=== PATIENT | male | born 1935 | race Caucasian/White ===

== ENCOUNTER → 2016-07-27 | Outpatient (CLI) | payer OTHER ==
[~2016-07-27] MED LIST: ACET-1311 PO; ASCO500T3 PO; ASPCH81X PO; CALC-354 PO; CARB25TA12 PO; CHOL1000 PO; CYCL0.052 OPB; FRS/40 PO; FURO-85 PO; IMDSR30 PO; ISOS30TA35 PO; METO25TA3 PO; MULT-845 PO; MULTTAB PO; NTRGSL/4 UT; PANT40TA PO; POLY335019 PO; POLY335040 PO; POTA1TAB97 PO; POTA20TA13 PO; RIVA4.6D TD; RIVA6CAP4 PO; RSTOPS OP; SERT50TA PO; SIMV20TA2 PO; TRAM-10 PO; ZLF/100 PO
== END | disposition home or self-care (01) ==
LOC: C.LAB 14:29
PROVIDERS: ATTEND Nurse Practitioner Family
DX: N39.0 Urinary tract infection, site not specified (principal)

== ENCOUNTER → 2016-09-24 | Outpatient (CLI) | payer OTHER ==
[~2016-09-24] MED LIST changes: -ACET-1311 PO; -FURO-85 PO; -ISOS30TA35 PO; -MULTTAB PO; -POLY335040 PO; -POTA20TA13 PO; +REGADENOSON 0.4 MG/5 ML SYR ONE; -RIVA4.6D TD; -RSTOPS OP
--- NOTE | 2016-09-25 09:42 | MYOCARDIAL PERFUSION SCAN ---
REQUESTING PHYSICIAN: Dr. Dong Granger. PRIMARY CARE PHYSICIAN: Dr. Dino Brandon. STUDY TITLE: One-day nuclear medicine technetium-99m Cardiolite myocardial perfusion scan. INDICATION: Chest pain and presyncope. EKG: Baseline EKG showed sinus bradycardia at a rate of 50 with first degree AV block, right bundle branch block and questionable old inferior infarct. Nonspecific ST changes. STRESS EKG: With Lexiscan, heart rate franca from 50 to 66, blood pressure changed from 137/69 to 113/57. There were no significant ST changes with Lexiscan. No Lexiscan induced arrhythmias. TECHNIQUE: For the stress portion of the study, 33.1 mCi of technetium-99m Cardiolite IV was injected at 11:12 a.m. on 09/24/2016. Thirty minutes following the injection, imaging of the heart was performed in multiple projections. For the rest portion of the study, 10.7 mCi of technetium-99m Cardiolite was injected IV at 09:35 a.m. One hour following injection, imaging of the heart was performed in the same projections. FINDINGS: The rotating raw images were reviewed in detail. There was mild vertical motion in the stress more so than on the rest images. There was no significant gut uptake impacting the inferior imaging borders of the heart. There was no significant pathologic extracardiac uptake. The short axis, vertical long axis, and horizontal long axis images were reviewed in detail. There was a small mild to moderate, partially reversible inferior perfusion defect. Summed difference score was calculated less than 3. LV size was normal with an end-diastolic volume recorded at 123 mL. EF was low normal with an EF of 46%. There was inferior hypokinesis. IMPRESSIONS: 1. Small inferior wall infarct with mild periinfarct ischemia, SDS less than 3. 2. Normal left ventricle size with mild left ventricular dysfunction. Ejection fraction 46%. There was inferior hypokinesis. 3. Nondiagnostic stress EKG with no Lexiscan induced arrhythmias or ST changes. 4. 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 MTDD
== END | disposition home or self-care (01) ==
LOC: C.NUCL 08:46
PROVIDERS: ATTEND Internal Medicine Cardiovascular Disease
DX: I25.10 Atherosclerotic heart disease of native coronary artery without angina pectoris (principal); R07.89 Other chest pain

== ENCOUNTER → 2016-09-30 | Day surgery (SDC) | payer OTHER ==
[2016-09-08 13:36] VITALS: Ht 180.3 cm; Wt 97.7 kg
[~2016-09-30] VITALS: Ht 180.3 cm; Wt 97.7 kg
[~2016-09-30] MED LIST changes: +LIDOCAINE HCL 2% 2 ML VIAL (20MG/ML) ONE; +PROPOFOL IV EMULSION 10 MG/ML 20 ML VIAL IV ONE; -REGADENOSON 0.4 MG/5 ML SYR ONE; +SODIUM CHLORIDE 0.9% 500ML 500 ML IV ONE
[2016-09-30 10:21] VITALS: TEMP 36.7
--- NOTE | 2016-09-30 10:52 | Endo History and Physical ---
History & Physical Date of Service: September 30, 2016. Chief Complaint: history of polyps Referring Physician: Dr. Dino Brandon and Dr. Granger History of Present Illness 80 yo CM who presents for colonoscopy secondary to history of colon polyps. 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) Hx Thoracic Surgery: No Hx Orthopedic: Yes (RT ANKLE SX, LUMBAR SURGERIES (DISCECTOMY AND FUSIONS) X 4 , RT RCR) Hx Urinary Tract Surgery: Yes (TURP, BLADDER CLIP REMOVAL) Family History Esophogeal CA Social History Smoking Status: Never Smoker Hx Substance Use: No Hx Alcohol Use: No Allergies Coded Allergies: Gabapentin (Verified Adverse Reaction, Intermediate, double vision, ) Current Medications Reported Home Medications Medications Dose Route/Sig Max Daily Dose Days Date Category Dose Instructions Zoloft (Sertraline HCl) 50 Mg Tab 75 Mg PO HS 09/08/16 Reported Rivastigmine Tartrate 6 Mg Cap 1 Cap PO QAM 09/08/16 Reported Centrum Silver Adult 50+ (Multiple Vitamins W/ Minerals) 1 Tab Tab 1 Tab PO QAM 09/08/16 Reported Caltrate 600+D (Calcium Carbonate-Cholecalcife) 1 Tab Tab 1 Tab PO QAM 09/08/16 Reported Restasis (Cyclosporine (Ophth)) 0.05 % Emu 1 Drop OPB QAM 09/08/16 Reported Lasix (Furosemide) 40 Mg Tab 40 Mg PO Q2D 09/08/16 Reported K-Tab (Potassium Chloride) 20 Meq Tab 1 Tab PO Q2D 09/08/16 Reported Miralax (Polyethylene Glycol 3350) 1 Pow Pow 17 Gm PO DAILY PRN 09/08/16 Reported Aspirin Chewable (Aspirin) 81 Mg Chew 81 Mg PO QAM 09/08/16 Reported Vitamin D3 (Cholecalciferol) 1,000 Unit Tab 1 Tab PO QAM 90 09/08/16 Reported Sinemet 25MG/100MG (Carbidopa/Levodopa) Tab 0.5 Tab PO BID 11/23/15 Reported Ultram (Tramadol HCl) 50 Mg Tab 25 Mg PO Q4 PRN 30 08/28/15 Reported Vitamin C (Ascorbic Acid) 500 Mg Tab 500 Mg PO QAM 06/18/13 Reported Nitrostat (Nitroglycerin) 0.4 Mg Tab 0.4 Mg UT UD PRN 04/15/12 Reported Toprol-Xl (Metoprolol Succinate) 25 Mg Tabcr 12.5 Mg PO QAM 08/30/11 Reported Protonix (Pantoprazole Sodium) 40 Mg Tab 40 Mg PO QAM 06/08/11 Reported Zocor (Simvastatin) 20 Mg Tab 20 Mg PO QPM 06/08/11 Reported with evening meal Vital Signs Weight (Kilograms): 97.73 Height (Feet): 5 Height (Inches): 11 Date Time Temp Pulse Resp B/P Pulse Ox O2 Delivery O2 Flow Rate FiO2 09/30/16 10:21 36.7 73 20 128/72 95 Room Air Physical Exam General Appearance: WD/WN, no apparent distress Respiratory/Chest: Auscultation: breath sounds normal Cardiovascular: Heart Auscultation: RRR Abdomen: Bowel Sounds: normal Inspection & Palpation: soft, non-distended, no tenderness, guarding & rebound Assessment and Plan Assessment: 80 yo CM who presents for colonoscopy secondary to history of colon polyps. Plan: Proceed with colonoscopy.
--- NOTE | 2016-09-30 11:55 | GI REPORT ---
Procedure Date: 09/30/2016 11:04 AM Procedure: Colonoscopy Indications: High risk colon cancer surveillance: Personal history of colonic polyps Medicines: Monitored Anesthesia Care Complications: No immediate complications. Estimated Blood Loss: Estimated blood loss: none. Procedure: Pre-Anesthesia Assessment: - Prior to the procedure, a History and Physical was performed, and patient medications and allergies were reviewed. The patient's tolerance of previous anesthesia was also reviewed. The risks and benefits of the procedure and the sedation options and risks were discussed with the patient. All questions were answered, and informed consent was obtained. Prior Anticoagulants: The patient has taken aspirin, last dose was 1 day prior to procedure. ASA Grade Assessment: III - A patient with severe systemic disease. After reviewing the risks and benefits, the patient was deemed in satisfactory condition to undergo the procedure. After I obtained informed consent, the scope was passed under direct vision. Throughout the procedure, the patient's blood pressure, pulse, and oxygen saturations were monitored continuously. The On-site loaner was introduced through the anus and advanced to the terminal ileum. The colonoscopy was performed without difficulty. The patient tolerated the procedure well. The quality of the bowel preparation was good. The terminal ileum, ileocecal valve, appendiceal orifice, and rectum were photographed. Findings: Three sessile polyps were found in the transverse colon, in the ascending colon and in the cecum. The polyps were 5 to 15 mm in size. These polyps were removed with a hot snare. Resection and retrieval were complete. To prevent bleeding after the polypectomy, six hemostatic clips were successfully placed (MR conditional). There was no bleeding at the end of the procedure. Multiple small-mouthed diverticula were found in the sigmoid colon. Non-bleeding internal hemorrhoids were found during retroflexion. The hemorrhoids were small. Impression: - Three 5 to 15 mm polyps in the transverse colon, in the ascending colon and in the cecum, removed with a hot snare. Resected and retrieved. Clips (MR conditional) were placed. - Diverticulosis in the sigmoid colon. - Non-bleeding internal hemorrhoids. Recommendation: - Resume previous diet. - Continue present medications. - Await pathology results. - No repeat colonoscopy due to age. - Return to primary care physician as previously scheduled. Barrett Pak DO 09/30/2016 11:54:12 AM This report has been signed electronically. Note Initiated On: 09/30/2016 11:04 AM I attest to the content of the Intraoperative Record and orders documented therein, exceptions below
--- NOTE | 2016-09-30 11:56 | Discharge Instructions ---
Endoscopy Patient Instructions Date / Procedure(s) Performed September 30, 2016. Colonoscopy Allergy Information Coded Allergies: Gabapentin (Verified Adverse Reaction, Intermediate, double vision, ) Discharge Date / Findings September 30, 2016. Colon polyps Diverticulosis Internal hemorrhoids Medication Instructions Stopped Medication(s): took ASA yesterday OK to resume all medications today as prescribed Reported Home Medications Medications Dose Route/Sig Max Daily Dose Days Date Category Dose Instructions Zoloft (Sertraline HCl) 50 Mg Tab 75 Mg PO HS 09/08/16 Reported Rivastigmine Tartrate 6 Mg Cap 1 Cap PO QAM 09/08/16 Reported Centrum Silver Adult 50+ (Multiple Vitamins W/ Minerals) 1 Tab Tab 1 Tab PO QAM 09/08/16 Reported Caltrate 600+D (Calcium Carbonate-Cholecalcife) 1 Tab Tab 1 Tab PO QAM 09/08/16 Reported Restasis (Cyclosporine (Ophth)) 0.05 % Emu 1 Drop OPB QAM 09/08/16 Reported Lasix (Furosemide) 40 Mg Tab 40 Mg PO Q2D 09/08/16 Reported K-Tab (Potassium Chloride) 20 Meq Tab 1 Tab PO Q2D 09/08/16 Reported Miralax (Polyethylene Glycol 3350) 1 Pow Pow 17 Gm PO DAILY PRN 09/08/16 Reported Aspirin Chewable (Aspirin) 81 Mg Chew 81 Mg PO QAM 09/08/16 Reported Vitamin D3 (Cholecalciferol) 1,000 Unit Tab 1 Tab PO QAM 90 09/08/16 Reported Sinemet 25MG/100MG (Carbidopa/Levodopa) Tab 0.5 Tab PO BID 11/23/15 Reported Ultram (Tramadol HCl) 50 Mg Tab 25 Mg PO Q4 PRN 30 08/28/15 Reported Vitamin C (Ascorbic Acid) 500 Mg Tab 500 Mg PO QAM 06/18/13 Reported Nitrostat (Nitroglycerin) 0.4 Mg Tab 0.4 Mg UT UD PRN 04/15/12 Reported Toprol-Xl (Metoprolol Succinate) 25 Mg Tabcr 12.5 Mg PO QAM 08/30/11 Reported Protonix (Pantoprazole Sodium) 40 Mg Tab 40 Mg PO QAM 06/08/11 Reported Zocor (Simvastatin) 20 Mg Tab 20 Mg PO QPM 06/08/11 Reported with evening meal Provider Instructions Activity Restrictions - No exercising or heavy lifting for 24 hours. - Do not drink alcohol the day of the procedure. - Do not drive a car or operate machinery until the day after the procedure. - Do not make any important decisions or sign important papers in 24 hours after the procedure. Following Day: - Return to full activity which may include returning to work/school. Diet Start your diet with liquids and light foods (jello, soup, juice, toast). Then eat your usual diet if not nauseated. Treatment For Common After Affects For mild abdominal pain, bloating, or excessive gas: - Rest - Eat lightly - Lie on right side Follow-Up Information Follow-up with Dr. Dino Brandon and Dr. Granger as scheduled Anesthesia Information What You Should Know You have had a procedure that required some medicine to reduce anxiety and discomfort. This treatment is called moderate sedation. After receiving the treatment, you may be sleepy, but you will be able to breathe on your own. The effects of the treatment may last for several hours. Follow these instructions along with Activity/Diet recommendations noted above: * Do NOT do anything where dizziness or clumsiness would be dangerous. * Rest quietly at home today, then you can be up and about tomorrow. * Have a responsible person stay with you the rest of today. * You may have had an I.V. today. If so, you may take the dressing off later today. Recommendations Call your doctor if: * Trouble breathing * Continuous vomiting for more than 24 hours * Temperature above 101 degrees * Severe abdominal pain or bloating * Pain not relieved by pain medicine ordered * There is increased drainage or redness from any incision * A large amount of rectal bleeding greater than 2-3 tablespoons. (If you had a polyp/s removed or have hemorrhoids, a small amount of blood - from the rectum is to be expected.) * You have any unanswered questions or concerns. IN THE EVENT OF A SERIOUS EMERGENCY, GO TO THE NEAREST EMERGENCY ROOM Your discharge instructions were prepared by provider Barrett Pak. Patient Instructions Signature Page [place] Patient (or Guardian) Signature/Date: I have read and understand the instructions given to me by my caregivers. Caregiver/RN/Doctor Signature/Date: The above-named patient and/or guardian has received patient instructions on this date. + Original Patient Signature Page (only) stays with chart. Please make copy for patient.
[2016-09-30 12:22] VITALS: BP 139/72; PULSE 66; O2SAT 94
--- NOTE | 2016-09-30 12:28 | Anesthesiology Progress Note ---
Anesthesia Post Op Note Date & Time September 30, 2016 at 12:27 Vital Signs Pain Intensity: 0 Vital Signs Past 12 Hours Date Time Temp Pulse Resp B/P Pulse Ox O2 Delivery O2 Flow Rate FiO2 09/30/16 12:22 66 16 139/72 94 Room Air 09/30/16 12:07 52 16 135/66 93 Room Air 09/30/16 11:52 57 16 109/55 93 Room Air 09/30/16 10:21 36.7 73 20 128/72 95 Room Air Notes Mental Status: alert / awake / arousable, participated in evaluation Pt Amnestic to Procedure: Yes Nausea / Vomiting: adequately controlled Pain: adequately controlled Airway Patency, RR, SpO2: stable & adequate BP & HR: stable & adequate Hydration State: stable & adequate Anesthetic Complications: no major complications apparent
== END | disposition home or self-care (01) ==
LOC: C.GI 09:52
PROVIDERS: ATTEND Internal Medicine
DX: Z12.11 Encounter for screening for malignant neoplasm of colon (principal); Z86.010 Personal history of colon polyps; D12.0 Benign neoplasm of cecum; K57.30 Diverticulosis of large intestine without perforation or abscess without bleeding; K64.8 Other hemorrhoids; I10 Essential (primary) hypertension; I50.9 Heart failure, unspecified; G20 Parkinson's disease; E78.00 Pure hypercholesterolemia, unspecified; K21.9 Gastro-esophageal reflux disease without esophagitis; F32.9 Major depressive disorder, single episode, unspecified; I25.2 Old myocardial infarction; Z85.46 Personal history of malignant neoplasm of prostate; Z86.73 Personal history of transient ischemic attack (TIA), and cerebral infarction without residual deficits; Z90.89 Acquired absence of other organs; Z98.890 Other specified postprocedural states; Z80.0 Family history of malignant neoplasm of digestive organs

== ENCOUNTER → 2016-10-14 | Day surgery (SDC) | payer OTHER ==
[2016-09-08 13:30] VITALS: Ht 180.3 cm; Wt 97.7 kg
[~2016-10-14] VITALS: Ht 180.3 cm; Wt 97.7 kg
[~2016-10-14] MED LIST changes: +BUPIVACAINE 0.25% 2.5MG/ML PF 10 ML VIAL INFIL ONE; +IOPAMIDOL INJ 61% 15 ML VIAL ONE; +LIDOCAINE HCL 1% MPF 5 ML VIAL ONE; -LIDOCAINE HCL 2% 2 ML VIAL (20MG/ML) ONE; -PROPOFOL IV EMULSION 10 MG/ML 20 ML VIAL IV ONE; -SODIUM CHLORIDE 0.9% 500ML 500 ML IV ONE
--- NOTE | 2016-10-14 09:53 | History & Physical Bridge - [place] ---
H&P Re-Evaluation Bridge Note: I have examined the patient, reviewed the History & Physical and in the interval since the performance of the History & Physical I have noted the following changes of clinical significance: No changes noted
[2016-10-14 10:20] VITALS: TEMP 37
--- NOTE | 2016-10-14 10:23 | Discharge Instructions ---
Discharge Instructions Date of Service October 14, 2016. Visit Reason for Visit: Sacroiliitis Discharge Discharge Diagnosis / Problem: low back pain Discharge Goals Goal(s): Decrease discomfort, Improve function Activity Recommendations Activity Limitations: resume your previous activity Anesthesia . Post Anesthesia Instructions: If you have had General Anesthesia or IV Sedation: * Do not drive today. * Resume driving when surgeon permits. * Do not make important decisions or sign legal documents today. * Call surgeon for: 1. Temperature elevations greater than 101 degrees F. 2. Uncontrollable pain. 3. Excessive bleeding. 4. Persistent nausea and vomiting. 5. Medication intolerance (nausea, vomiting or rash). * For nausea and vomiting use only clear liquids such as: tea, soda, bouillon until nausea subsides, then gradually increase diet as tolerated. * If you have any concerns or questions, call your surgeon's office. If physician is unavailable and it is an emergency, call 911 or go to the nearest emergency room. . Diet Recommendations Recommended Home Diet: resume previous diet Procedures Procedures Performed: Bilateral Sacroiliac Joint Injection Pending Studies Studies pending at discharge: no Medical Emergencies . Who to Call and When: Medical Emergencies: If at any time you feel your situation is an emergency, please call 911 immediately. . Non-Emergent Contact Non-Emergency issues call your: Specialist . . "Provider Documentation" section prepared by Jed Wallace. .
[2016-10-14 10:39] VITALS: BP 135/72; PULSE 60; O2SAT 95
--- NOTE | 2016-10-14 11:40 | OPERATIVE REPORT ---
DATE OF OPERATION: 10/14/2016 PREOPERATIVE DIAGNOSES: Bilateral sacroiliitis, history of a lumbar fusion, chronic low back pain. POSTOPERATIVE DIAGNOSIS: Same. PROCEDURE: Bilateral sacroiliac joint injections under fluoroscopic guidance. INDICATIONS: The patient is an 80-year-old white male who presented in the office with intractable back pain. He was really localizing pain to the sacroiliac joints. He presents today for injections into these joints to try to reduce or relieve some of the pain he has been experiencing that has not responded to conservative measures and is affecting his functional status. PHYSICAL EXAMINATION: Pleasant male who has difficulty moving from a sit to stand position. He is point tender to palpation of his SI joints bilaterally, right and left. He has normal motor strength. No focal weakness. Negative seated straight leg raises. CONSENT: Verbal and written consent was obtained from the patient. Risks and benefits were reviewed. Risks include but are not limited to abscess and allergic reaction. The patient wishes to proceed. PROCEDURE: The patient was taken back to the special procedures room of the [facility] where he was maintained in a prone position. Backside was cleansed with Betadine x3 and a dry sterile dressing was applied. Fluoroscope was used to identify the left sacroiliac joint and the overlying skin was anesthetized with 2.5 mL of lidocaine 1% with a 25 gauge 1.5-inch needle. A 25 gauge 3.5 inch spinal needle was then directed into the joint under fluoroscopic guidance. Isovue 300 contrast 0.25 of a mL was injected in which demonstrated intraarticular uptake. He then underwent injection after negative aspiration of 40 mg of Depo-Medrol and 1.5 mL of bupivacaine 0.25%. Injection was well tolerated. The right SI joint then was fluoroscopically identified. The overlying skin was anesthetized with 2.5 mL of lidocaine 1% with a 25 gauge 1.5 inch needle. A 25-gauge 3 inch needle was then directed into the joint. Isovue 300 contrast 0.25 mL was injected in which demonstrated intra-articular placement. He then underwent injection after negative aspiration of 40 mg of Depo-Medrol and 1.5 mL of bupivacaine 0.25%. Injection was well tolerated. DISPOSITION: 1. The patient was taken out into the discharge recovery area where he will be discharged home once discharge criteria have been met. 2. Follow up in the [facility] office in 2-4 weeks. I attest to the content of the Intraoperative Record and any orders documented therein. Any exceptio ns are noted below.
== END | disposition home or self-care (01) ==
LOC: X.SURG 09:10
PROVIDERS: ATTEND Physical Medicine & Rehabilitation
DX: M46.1 Sacroiliitis, not elsewhere classified (principal); G89.29 Other chronic pain; M54.5 Low back pain

== ENCOUNTER 2016-11-11 17:11 | Emergency (ER) | payer OTHER ==
[~2016-11-11] VITALS: Ht 180.3 cm; Wt 99.1 kg
[~2016-11-11 17:11] MED LIST changes: -BUPIVACAINE 0.25% 2.5MG/ML PF 10 ML VIAL INFIL ONE; -IOPAMIDOL INJ 61% 15 ML VIAL ONE; -LIDOCAINE HCL 1% MPF 5 ML VIAL ONE; -ZLF/100 PO
[2016-11-11 17:12] VITALS: TEMP 36.3; Ht 180.3 cm; Wt 99.1 kg
[2016-11-11] MEDS ORDERED: SODIUM CHLORIDE 0.9% 1000ML 500 ML IV STA (17:26)
[2016-11-11] MEDS ORDERED: SODIUM CHLORIDE 0.9% 1000ML 1,000 ML IV STA (17:26)
[2016-11-11 17:52] LABS: BASO % 0.4 %; BASO ABS # 0.04 K/uL (0-0.2); COMPLETE YES; EOS % 5.4 %; HEMATOCRIT 45.8 % (42-52); IG% 0.2 %; LYMPH % 28.4 %; LYMPH ABS # 2.61 K/uL (1.2-3.4); MEAN CELL VOLUME 87.6 fL (80-100); MEAN CORPUSCULAR HEMOGLOBIN 29.6 pg (25-34); MEAN CORPUSCULAR HGB CONC 33.8 g/dl (32-36); MEAN PLATELET VOLUME 9.2 fL (7.4-10.4); MONO % 8.7 %; NEUT % 56.9 %; PLATELET COUNT 188 K/uL (130-400); RED BLOOD COUNT 5.23 M/uL (4.7-6.1); WHITE BLOOD COUNT 9.19 K/uL (4.8-10.8)
[2016-11-11 18:08] LABS: BUN/CREATININE RATIO 9.9 (10-20); CALCIUM 9.2 mg/dl (8.5-10.1); CREATININE 1.7 mg/dl (0.60-1.40); POTASSIUM 3.7 mmol/L (3.5-5.1)
--- NOTE | 2016-11-11 18:22 | DIAGNOSTIC IMAGING REPORT ---
ABDOMEN AND PELVIS CT WITHOUT CONTRAST CT DOSE: 727.89 mGy.cm HISTORY: Diarrhea, left abdominal pain TECHNIQUE: Multiaxial CT images of the abdomen and pelvis were performed without contrast. COMPARISON STUDY: Abdomen and pelvis CT 01/01/2015. FINDINGS: Groundglass densities within the lower lobes may be due to mild dependent change. There is a 1.5 cm nodule within the base of the left lower lobe. No pneumoperitoneum. No pneumatosis. Posterior decompression and fusion within the lumbar sacral spine. The heart remains mildly enlarged. Mild motion artifact. The unenhanced liver, gallbladder, spleen, adrenal glands, and pancreas are unremarkable. The kidneys are mildly atrophic. There are few small bilateral peripelvic renal cysts. There is also a 1.2 cm hypodensity within the left kidney. This also favors a cyst. No hydronephrosis. The bladder is not well-distended but appears unremarkable. The prostate gland is surgically absent. Suspect a punctate stone within the left kidney. No retroperitoneal lymphadenopathy. Suboptimal evaluation for bowel pathology due to the lack of intravenous and oral contrast. However, there is no definite bowel wall thickening or obstruction. Colonic diverticulosis. Normal appendix. Surgical clips within the right side of the colon. IMPRESSION: 1. No definite bowel wall thickening or obstruction. 2. Colonic diverticulosis. 3. Normal appendix. 4. Suspect a punctate stone within the left kidney. No ureteral stones. No hydronephrosis. 5. A 1.5 cm nodule within the base of the left lower lobe. This is suspicious for a neoplasm. Pulmonology consultation and/or short term chest CT/PET CT follow-up can be performed. Electronically signed by: Tip Kunz M.D. 11/11/2016 6:20 PM Dictated Date/Time: 11/11/2016 6:11 PM
[2016-11-11] MEDS ORDERED: ZLF/100 PO (18:52)
[2016-11-11 19:33] LABS: URINE APPEARANCE CLEAR (CLEAR); URINE BILIRUBIN NEG (NEG); URINE COLOR YELLOW; URINE NITRITE NEG (NEG); URINE SPECIFIC GRAVITY 1.015 (1.000-1.030); UROBILINOGEN NEG (NEG); ZZUR CULT IF INDIC CLEAN CATCH NO
[2016-11-11 19:38] LABS: MANUAL MICROSCOPIC REQUIRED? NO; REVIEW REQ? NO
[2016-11-11 20:09] VITALS: BP 162/90; PULSE 53; O2SAT 96
--- NOTE | 2016-11-15 03:31 | EMERGENCY ROOM VISIT NOTE ---
History Report prepared by Sue: Ana Elaine Under the Supervision of: Dr. Jose Brandon M.D. First contact with patient: 17:18 Chief Complaint: DIARRHEA Stated Complaint: DIARRHEA History of Present Illness The patient is an 80 year old male who presents to the Emergency Room with complaints of persistent diarrhea that started 3 days ago. He experiences 2 episodes of diarrhea a day. The patient was referred to the ED by the triage nurse at Dr. Pak's office. The patient's has talked to the triage nurse for the past 3 days about the patient's symptoms. She also tried to contact the patient's PCP but she states that she has not heard back from them. The patient' s states that the patient typically experiences constipation which he takes polyethylene glycol for but he has not needed to take that for the last 5 days. The patient is also experiencing mild abdominal pain, which his states he complains about mostly in the morning. The patient has been taking Imodium without any relief of his symptoms. The patient's adds that he has not been eating much over the past 3 days. Pt denies LOC, headache, lightheadedness, fevers, chills, diaphoresis, visual changes, neck pain, chest pain, breathing difficulties, nausea, vomiting, back pain, melena, hematochezia , urinary symptoms, lower extremity edema, numbness, weakness, lymphadenopathy, rash, or other complaints. The patient's states that the patient has not been on any antibiotics or traveled out of the country recently. The patient had a colonoscopy done within the last [address] Pasha OGDEN and he had 3 colonic polyps removed. Source of History: patient, spouse/significant other () Onset: 3 days ago Position: abdomen Quality: other (diarrhea) Timing: other (persistent) Modifying Factors (Relieving): other (None) Associated Symptoms: + abdominal pain (mild) Review of Systems See HPI for pertinent positives and negatives. A total of ten systems were reviewed and were otherwise negative. Past Medical & Surgical Medical Problems: (1) Cardiac catheterization (2) Coronary Atherosclerosis Of [place] Coronary Vessel (3) Heart disease (4) Hx-Prostatic Malignancy (5) Hypertension Nos (6) Malignant melanoma (7) Old Myocardial Infarct (8) Pneumonia, Organism Nos (9) tia Family History Patient reports no known family medical history. Social History Smoking Status: Never Smoker Alcohol Use: none Drug Use: none Marital Status: Housing Status: lives with family Occupation Status: retired Current/Historical Medications Scheduled Ascorbic Acid (Vitamin C), 500 MG PO QAM Aspirin (Aspirin Chewable), 81 MG PO QAM Calcium Carbonate-Cholecalcife (Caltrate 600+D), 1 TAB PO QAM Carbidopa/Levodopa (Sinemet 25MG/100MG), 0.5 TAB PO BID Cholecalciferol (Vitamin D3), 1 TAB PO QAM Cyclosporine (Ophth) (Restasis), 1 DROP OPB QAM Furosemide (Lasix), 40 MG PO Q2D Isosorbide Mononitrate (Isosorbide Mononitrate ER), 1 TAB PO DAILY Metoprolol Succ (Toprol Xl) (Toprol-Xl), 12.5 MG PO QAM Multiple Vitamins W/ Minerals (Centrum Silver Adult 50+), 1 TAB PO QAM Pantoprazole (Protonix), 40 MG PO QAM Potassium Chloride (K-Tab), 1 TAB PO Q2D Rivastigmine Tartrate (Rivastigmine Tartrate), 1 CAP PO QAM Sertraline HCl (Sertraline HCl), 1 TAB PO DAILY Simvastatin (Zocor), 20 MG PO QPM Scheduled PRN Nitroglycerin (Nitrostat), 0.4 MG UT UD PRN for Chest Pain Polyethylene Glycol 3350 (Miralax), 17 GM PO DAILY PRN for Constipation Tramadol (Ultram), 25 MG PO Q4 PRN for Pain Allergies Coded Allergies: Gabapentin (Verified Adverse Reaction, Intermediate, double vision, ) Physical Exam Vital Signs Date Time Temp Pulse Resp B/P (MAP) Pulse Ox O2 Delivery O2 Flow Rate FiO2 11/11/16 20:09 53 16 162/90 96 11/11/16 19:16 49 18 94 Room Air 11/11/16 18:17 59 11/11/16 17:12 36.3 76 22 134/77 94 Room Air Physical Exam GENERAL: Awake, alert, well-appearing, in no distress HENT: Normocephalic, atraumatic. Oropharynx unremarkable. EYES: Normal conjunctiva. Sclera non-icteric. NECK: Supple. No nuchal rigidity. FROM. No JVD. RESPIRATORY: Clear to auscultation. CARDIAC: Regular rate, normal rhythm. Extremities warm and well perfused. Pulses equal. ABDOMEN: Soft, non-distended. Left upper quadrant and left lower quadrant tenderness to palpation. No rebound or guarding. No masses. RECTAL: Deferred. MUSCULOSKELETAL: Chest examination reveals no tenderness. The back is symmetrical on inspection without obvious abnormality. There is no CVA tenderness to palpation. No joint edema. LOWER EXTREMITIES: Calves are equal size bilaterally and non-tender. No edema. No discoloration. NEURO: Normal sensorium. No sensory or motor deficits noted. SKIN: No rash or jaundice noted. Medical Decision & Procedures ER Provider Diagnostic Interpretation: Radiology results as stated below per my review and radiologist interpretation: ABDOMEN AND PELVIS CT WITHOUT CONTRAST CT DOSE: 727.89 mGy.cm HISTORY: Diarrhea, left abdominal pain TECHNIQUE: Multiaxial CT images of the abdomen and pelvis were performed without contrast. COMPARISON STUDY: Abdomen and pelvis CT 01/01/2015. FINDINGS: Groundglass densities within the lower lobes may be due to mild dependent change. There is a 1.5 cm nodule within the base of the left lower lobe. No pneumoperitoneum. No pneumatosis. Posterior decompression and fusion within the lumbar sacral spine. The heart remains mildly enlarged. Mild motion artifact. The unenhanced liver, gallbladder, spleen, adrenal glands, and pancreas are unremarkable. The kidneys are mildly atrophic. There are few small bilateral peripelvic renal cysts. There is also a 1.2 cm hypodensity within the left kidney. This also favors a cyst. No hydronephrosis. The bladder is not well-distended but appears unremarkable. The prostate gland is surgically absent. Suspect a punctate stone within the left kidney. No retroperitoneal lymphadenopathy. Suboptimal evaluation for bowel pathology due to the lack of intravenous and oral contrast. However, there is no definite bowel wall thickening or obstruction. Colonic diverticulosis. Normal appendix. Surgical clips within the right side of the colon. IMPRESSION: 1. No definite bowel wall thickening or obstruction. 2. Colonic diverticulosis. 3. Normal appendix. 4. Suspect a punctate stone within the left kidney. No ureteral stones. No hydronephrosis. 5. A 1.5 cm nodule within the base of the left lower lobe. This is suspicious for a neoplasm. Pulmonology consultation and/or short term chest CT/PET CT follow-up can be performed. Electronically signed by: Tip Kunz M.D. 11/11/2016 6:20 PM Dictated Date/Time: 11/11/2016 6:11 PM Laboratory Results 11/11/16 17:39 Red Blood Count 5.23, Mean Corpuscular Volume 87.6, Mean Corpuscular Hemoglobin 29.6, Mean Corpuscular Hemoglobin Concent 33.8, Mean Platelet Volume 9.2, Neutrophils (%) (Auto) 56.9, Lymphocytes (%) (Auto) 28.4, Monocytes (%) (Auto) 8.7, Eosinophils (%) (Auto) 5.4, Basophils (%) (Auto) 0.4, Neutrophils # (Auto) 5.22, Lymphocytes # (Auto) 2.61, Monocytes # (Auto) 0.80, Eosinophils # (Auto) 0.50, Basophils # (Auto) 0.04 11/11/16 17:39 Test 11/11/16 17:39 11/11/16 19:13 White Blood Count 9.19 K/uL (4.8-10.8) Red Blood Count 5.23 M/uL (4.7-6.1) Hemoglobin 15.5 g/dL (14.0-18.0) Hematocrit 45.8 % (42-52) Mean Corpuscular Volume 87.6 fL (80-100) Mean Corpuscular Hemoglobin 29.6 pg (25-34) Mean Corpuscular Hemoglobin Concent 33.8 g/dl (32-36) Platelet Count 188 K/uL (130-400) Mean Platelet Volume 9.2 fL (7.4-10.4) Neutrophils (%) (Auto) 56.9 % Lymphocytes (%) (Auto) 28.4 % Monocytes (%) (Auto) 8.7 % Eosinophils (%) (Auto) 5.4 % Basophils (%) (Auto) 0.4 % Neutrophils # (Auto) 5.22 K/uL (1.4-6.5) Lymphocytes # (Auto) 2.61 K/uL (1.2-3.4) Monocytes # (Auto) 0.80 K/uL (0.11-0.59) Eosinophils # (Auto) 0.50 K/uL (0-0.5) Basophils # (Auto) 0.04 K/uL (0-0.2) RDW Standard Deviation 52.4 fL (36.4-46.3) RDW Coefficient of Variation 16.3 % (11.5-14.5) Immature Granulocyte % (Auto) 0.2 % Immature Granulocyte # (Auto) 0.02 K/uL (0.00-0.02) Anion Gap 7.0 mmol/L (3-11) Est Creatinine Clear Calc Drug Dose 40.9 ml/min Estimated GFR () 42.9 Estimated GFR (Non- 37.0 BUN/Creatinine Ratio 9.9 (10-20) Calcium Level 9.2 mg/dl (8.5-10.1) Total Bilirubin 0.5 mg/dl (0.2-1) Direct Bilirubin 0.2 mg/dl (0-0.2) Aspartate Amino Transf (AST/SGOT) 20 U/L (15-37) Alanine Aminotransferase (ALT/SGPT) 33 U/L (12-78) Alkaline Phosphatase 83 U/L (45-117) Total Protein 6.8 gm/dl (6.4-8.2) Albumin 3.5 gm/dl (3.4-5.0) Lipase 137 U/L (73-393) Urine Color YELLOW Urine Appearance CLEAR (CLEAR) Urine pH 5.0 (4.5-7.5) Urine Specific [place] 1.015 (1.000-1.030) Urine Protein NEG (NEG) Urine Glucose (UA) NEG (NEG) Urine Ketones NEG (NEG) Urine Occult Blood NEG (NEG) Urine Nitrite NEG (NEG) Urine Bilirubin NEG (NEG) Urine Urobilinogen NEG (NEG) Urine Leukocyte Esterase NEG (NEG) Laboratory results reviewed by me Medications Administered Medications (Trade) Dose Ordered Sig/Nader Route Start Time Stop Time Status Last Admin Dose Admin Sodium Chloride 1,000 ml @ 125 mls/hr Q8H STAT IV 11/11/16 17:26 11/11/16 20:45 DC 11/11/16 17:45 125 MLS/HR Sodium Chloride 500 ml @ 999 mls/hr Q31M STAT IV 11/11/16 17:26 11/11/16 17:56 DC 11/11/16 17:45 999 MLS/HR ED Course 1725: The patient was evaluated in room B12. A complete history and physical exam was performed. 1726: Ordered Sodium Chloride 500 ml @ 999 mls/hr IV, Sodium Chloride 1000 ml @ 125 mls/hr IV 1947: I reevaluated the patient. He feels well. I discussed results and discharge instructions with the patient and his . They verbalized understanding and agreement. I also discussed the referral to pulmonology for further evaluation of the large nodule in his left lung. They are going to call tomorrow to setup an appointment. The patient was unable to provide a stool specimen. The patient is ready for discharge. Medical Decision Medication Reconciliation: I attest that I have personally reviewed the patient' s current medication list Blood pressure screening: Patient was found to have an elevated blood pressure and was referred to their primary doctor for recheck and further treatment. Triage Nursing notes reviewed. The patient's presentation and history were concerning for diarrhea and abdominal discomfort. Etiologies such as colitis, gastroenteritis, food borne illness, infections, obstruction, pancreatitis, appendicitis, diverticulitis, inflammatory bowel disease, GI bleed, biliary pathology, toxicologic as well as others were entertained. The patient was evaluated. Clinically he was doing well. Blood work was obtained. No gross abnormalities were seen. The patient had gentle saline hydration. He underwent CT imaging which is unremarkable. On reassessment he was feeling much better. The patient was unable to provide a stool sample. As the patient is hemodynamically stable and has unremarkable diagnostic testing I discussed conservative management at home. He was advised to follow-up and give a stool specimen. If he worsens in any way he will be back. I gave my usual and customary discussion regarding this issue. Impression Primary Impression: Diarrheal disease Scribe Attestation The scribe's documentation has been prepared under my direction and personally reviewed by me in its entirety. I confirm that the note above accurately reflects all work, treatment, procedures, and medical decision making performed by me. Departure Information Dispostion Home / Self-Care Referrals Dino Brandon M.D. (PCP) Forms HOME CARE DOCUMENTATION FORM, IMPORTANT VISIT INFORMATION, WORK / SCHOOL INSTRUCTIONS Patient Instructions My [facility] Additional Instructions Continue current medications. Rest and drink plenty of fluids. Slowly increase diet back to normal. Avoid dairy products until diarrhea resolves. Return to the ER for worsening abdominal pain, vomiting, fevers, bloody stools, or as needed. Follow-up with your primary care physician in 2 to 3 days for a recheck of your current condition and to obtain a stool sample for testing. Follow-up with Dr. Pedro's office. Call tomorrow and let them know about the pulmonary nodule seen on your CAT scan.
== END 2016-11-11 20:10 | disposition home or self-care (01) ==
LOC: C.EDB 17:12
DX: R19.7 Diarrhea, unspecified (principal); I10 Essential (primary) hypertension; I25.10 Atherosclerotic heart disease of native coronary artery without angina pectoris; I25.2 Old myocardial infarction; I51.9 Heart disease, unspecified; Z85.820 Personal history of malignant melanoma of skin; Z82.3 Family history of stroke; Z79.82 Long term (current) use of aspirin; Z79.899 Other long term (current) drug therapy; Z88.8 Allergy status to other drugs, medicaments and biological substances

== ENCOUNTER → 2016-12-08 | Outpatient (CLI) | payer OTHER ==
[~2016-12-08] MED LIST changes: -SERT50TA PO; +ZLF/100 PO
--- NOTE | 2016-12-08 10:47 | DIAGNOSTIC IMAGING REPORT ---
(CHEST) THORAX WITHOUT CT DOSE: 745.51 mGycm CLINICAL HISTORY: 80 years-old Male with R31.29 Microscopic [id number] Solitary pulmonary nodule. TECHNIQUE: Multiaxial CT images of the chest were performed without contrast. A dose lowering technique was utilized adhering to the principles of ALARA. COMPARISON: CT abdomen and pelvis 11/11/2016, CT chest 12/22/2014. FINDINGS: Thyroid is homogeneous. There is streak artifact from right shoulder arthroplasty. There is no pathologic-appearing adenopathy of the chest. Heart is mildly enlarged with coronary arterial calcifications noted. There is tortuosity of the common artery with associated mild atherosclerosis. There is no pneumothorax or pleural effusion. Dependent groundglass opacities suggest atelectasis. There is a pleural-based soft tissue attenuating noncalcified nodule of the lateral basal segment left lower lobe, 1.7 x 1.3 x 1.4 cm in AP, transverse and cranial caudal dimensions. In retrospect, this was present on CT the chest 01/01/2015 and measured 10 x 7 mm. No additional focal pulmonary nodules or masses are identified. Central airways appear patent. There is no change nonspecific 6 mm nodular opacity adjacent to the posterior right hepatic lobe. There is moderate to severe pancreatic atrophy. Soft tissues are unremarkable. No destructive bony lesions, suspicious lytic or blastic metastasis. Multilevel endplate changes are seen throughout the spine. IMPRESSION: 1. Pleural-based noncalcified pulmonary nodule of the lateral basal segment left lower lobe measures up to 1.7 cm and is concerning for primary bronchogenic carcinoma. 2. No evidence of metastatic disease, pathologic adenopathy or suspicious bony lesions. 3. Additional incidental findings as above. Electronically signed by: Sd Trinh M.D. 12/08/2016 10:45 AM Dictated Date/Time: 12/08/2016 10:35 AM
--- NOTE | 2017-02-05 12:57 | PULMONARY FUNCTION TEST ---
Interpretation based off ATS criteria. SPIROMETRY: Within normal limits. BRONCHODILATOR: No significant response. LUNG VOLUMES: Within normal limits. DIFFUSION CAPACITY: Within normal limits. INTERPRETATION: Normal pulmonary function studies.
--- NOTE | 2017-02-08 07:10 | PULMONARY FUNCTION TEST ---
Pulmonary function test based off ATS criteria. SPIROMETRY: Within normal limits. BRONCHODILATOR: No significant response. LUNG VOLUMES: Within normal limits. DIFFUSION CAPACITY: Within normal limits. INTERPRETATION: Normal pulmonary function studies.
== END | disposition home or self-care (01) ==
LOC: C.CTS 10:13
PROVIDERS: ATTEND Internal Medicine Pulmonary Disease
DX: R91.1 Solitary pulmonary nodule (principal); R31.29 Other microscopic hematuria

== ENCOUNTER 2016-12-16 17:58 | Emergency (ER) | payer OTHER ==
[~2016-12-16] VITALS: Ht 157.5 cm; Wt 98.0 kg
[2016-12-16 18:00] VITALS: TEMP 36.7; Ht 157.5 cm; Wt 98.0 kg
--- NOTE | 2016-12-16 18:27 | EMERGENCY ROOM VISIT NOTE ---
History Report prepared by Sue: Yeni Verma Under the Supervision of: Dr. Brian Cleary D.O. First contact with patient: 18:00 Chief Complaint: FALL Stated Complaint: FALL History of Present Illness The patient is an 81 year old male who presents to the Emergency Room with complaints of a sudden fall that occurred prior to arrival. Per nursing staff, the patient was recently evaluated in the hospital and has been worked up for lung cancer. Nursing staff reports that the patient was at home today and fell and hit his head. Nursing staff states that the patient lives at home with his and after calling the patient's daughter, she wanted the patient brought to the emergency department for further treatment and evaluation. The patient reports some slight abdominal pain, neck pain, and low back pain. He denies any loss of consciousness. The patient denies any nausea, vomiting, or pain in his lower extremities. He states that he has walked fine recently. The history is limited secondary to the patient's altered mental status. Source of History: patient, nursing staff History Limited By: AMS Onset: prior to arrival Position: other (global) Quality: other (fall) Timing: other (sudden) Associated Symptoms: + neck pain, + abdominal pain, + back pain, No LOC, No nausea, No vomiting Review of Systems The history and ROS are limited secondary to the patient's altered mental status. Past Medical & Surgical Medical Problems: (1) Cardiac catheterization (2) Coronary Atherosclerosis Of [place] Coronary Vessel (3) Heart disease (4) Hx-Prostatic Malignancy (5) Hypertension Nos (6) Malignant melanoma (7) Old Myocardial Infarct (8) Pneumonia, Organism Nos (9) tia Family History Patient reports no known family medical history. Social History Smoking Status: Never Smoker Alcohol Use: none Drug Use: none Marital Status: Housing Status: lives with family Occupation Status: retired Current/Historical Medications Scheduled Ascorbic Acid (Vitamin C), 500 MG PO QAM Aspirin (Aspirin Chewable), 81 MG PO QAM Calcium Carbonate-Cholecalcife (Caltrate 600+D), 1 TAB PO QAM Carbidopa/Levodopa (Sinemet 25MG/100MG), 0.5 TAB PO BID Cholecalciferol (Vitamin D3), 1,000 UNITS PO QAM Cyclosporine (Ophth) (Restasis), 1 DROP OPB QAM Furosemide (Lasix), 40 MG PO Q2D Isosorbide Mononitrate (Isosorbide Mononitrate ER), 30 MG PO QAM Metoprolol Succ (Toprol Xl) (Toprol-Xl), 12.5 MG PO QAM Multiple Vitamins W/ Minerals (Centrum Silver Adult 50+), 1 TAB PO QAM Pantoprazole (Protonix), 40 MG PO QAM Potassium Chloride (K-Tab), 1 TAB PO Q2D Rivastigmine Tartrate (Rivastigmine Tartrate), 6 MG PO QAM Sertraline HCl (Sertraline HCl), 100 MG PO HS Simvastatin (Zocor), 20 MG PO QDD Scheduled PRN Nitroglycerin (Nitrostat), 0.4 MG UT UD PRN for Chest Pain Polyethylene Glycol 3350 (Miralax), 17 GM PO DAILY PRN for Constipation Tramadol (Ultram), 25 MG PO Q4H PRN for Pain Allergies Coded Allergies: Gabapentin (Verified Adverse Reaction, Severe, HALLUCINATIONS-DOUBLE VISION, 12/16/16) Physical Exam Vital Signs Date Time Temp Pulse Resp B/P (MAP) Pulse Ox O2 Delivery O2 Flow Rate FiO2 12/16/16 20:00 56 18 148/67 97 Room Air 12/16/16 18:00 36.7 93 18 145/76 93 Room Air Physical Exam GENERAL: Patient is awake, alert, non-anxious appearing and comfortable. EYES: The conjunctivae are clear. The pupils are round and reactive. EARS, NOSE, MOUTH AND THROAT: The nose is without any evidence of any deformity. Mucous membranes are moist tongue is midline NECK: Diffuse tenderness to palpation, range of motion appears intact. RESPIRATORY: Diminished breath sounds throughout, no tachypnea, or conversational dyspnea. CARDIOVASCULAR: Regular rate and rhythm noted there no murmurs rubs or gallops normal S1 normal S2 GASTROINTESTINAL: The abdomen is soft. Bowel sounds are present in all quadrants. Abdomen is nontender PELVIS: The Pelvis is stable. No tenderness to palpation is noted. BACK: Lumbar spine is tender to palpation, range of motion appears intact. MUSCULOSKELETAL/EXTREMITIES: There is no evidence of gross deformity full range of motion is noted in the hips and shoulders SKIN: Pedal edema noted bilaterally. NEUROLOGIC: Patient is awake alert and oriented to person and place. Medical Decision & Procedures ER Provider Diagnostic Interpretation: Radiology results as stated below per my review and radiologist interpretation: PELVIS 1 OR 2 VIEW ROUTINE CLINICAL HISTORY: fall pain COMPARISON: 04/05/2015 DISCUSSION: No acute bony abnormality. No evidence for acetabular protrusion. Postoperative changes of the lumbar spine and low soft tissue pelvis. There is no evidence for soft tissue swelling. IMPRESSION: No acute process. The above report was generated using voice recognition software. It may contain grammatical, syntax or spelling errors. Electronically signed by: Job Traylor M.D. 12/16/2016 7:37 PM Dictated Date/Time: 12/16/2016 7:36 PM L-SPINE MIN 4 VIEWS ROUTINE HISTORY: Trauma fall COMPARISON: 06/14/2016 FINDINGS: There is no fracture. No subluxation. Operative changes consistent with posterior laminectomy and fusion from L2 through S1. Mild stable scoliosis. IMPRESSION: Stable degenerative and postoperative change. No acute process. The above report was generated using voice recognition software. It may contain grammatical, syntax or spelling errors. Electronically signed by: Job Traylor M.D. 12/16/2016 7:36 PM Dictated Date/Time: 12/16/2016 7:35 PM The status of this report is Signed. Draft = Not yet reviewed or approved by Radiologist. Signed = Reviewed and approved by Radiologist. HEAD WITHOUT CONTRAST (CT) CT DOSE: HISTORY: Trauma fall TECHNIQUE: Multiaxial CT images of the head were performed without the use of intravenous contrast. A dose lowering technique was utilized adhering to the principles of ALARA. Comparison: 08/19/2015 Findings: The paranasal sinuses and mastoid air cells are clear. The calvarium and skull base are intact. The ventricles and sulci are within normal limits. There is no mass, hematoma, midline shift, or acute infarct. Impression: No acute intracranial abnormality. The above report was generated using voice recognition software. It may contain grammatical, syntax or spelling errors. Electronically signed by: Jbo Traylor M.D. 12/16/2016 6:47 PM Dictated Date/Time: 12/16/2016 6:46 PM CHEST 2 VIEWS ROUTINE CLINICAL HISTORY: fall trauma COMPARISON STUDY: 11/23/2015 FINDINGS: The bones soft tissues and hemidiaphragms are normal. The cardiomediastinal silhouette is normal. The lungs are clear. The pulmonary vasculature is normal. IMPRESSION: Negative chest. The above report was generated using voice recognition software. It may contain grammatical, syntax or spelling errors. Electronically signed by: Job Traylor M.D. 12/16/2016 7:35 PM Dictated Date/Time: 12/16/2016 7:34 PM CERVICAL SPINE W/O CT DOSE: 1256.88 mGy.cm HISTORY: Trauma fall TECHNIQUE: Multiaxial CT images of the cervical spine were performed and reformatted in the sagittal and coronal plane without the use of contrast. A dose lowering technique was utilized adhering to the principles of ALARA. COMPARISON: 08/19/2015 FINDINGS: No fractures. No subluxation. Prevertebral soft tissues and the C1-C2 interval are intact. No pneumothorax. IMPRESSION: No fractures within the cervical spine. Moderate degenerative change. No change from the prior exam. The above report was generated using voice recognition software. It may contain grammatical, syntax or spelling errors. Electronically signed by: Job Traylor M.D. 12/16/2016 6:51 PM Dictated Date/Time: 12/16/2016 6:49 PM Laboratory Results 12/16/16 18:20 Red Blood Count 5.12, Mean Corpuscular Volume 90.0, Mean Corpuscular Hemoglobin 29.3, Mean Corpuscular Hemoglobin Concent 32.5, Mean Platelet Volume 9.3, Neutrophils (%) (Auto) 53.0, Lymphocytes (%) (Auto) 29.1, Monocytes (%) (Auto) 10.6, Eosinophils (%) (Auto) 6.3, Basophils (%) (Auto) 0.5, Neutrophils # (Auto ) 4.55, Lymphocytes # (Auto) 2.50, Monocytes # (Auto) 0.91, Eosinophils # (Auto ) 0.54, Basophils # (Auto) 0.04 12/16/16 18:20 Test 12/16/16 18:20 White Blood Count 8.58 K/uL (4.8-10.8) Red Blood Count 5.12 M/uL (4.7-6.1) Hemoglobin 15.0 g/dL (14.0-18.0) Hematocrit 46.1 % (42-52) Mean Corpuscular Volume 90.0 fL (80-100) Mean Corpuscular Hemoglobin 29.3 pg (25-34) Mean Corpuscular Hemoglobin Concent 32.5 g/dl (32-36) Platelet Count 197 K/uL (130-400) Mean Platelet Volume 9.3 fL (7.4-10.4) Neutrophils (%) (Auto) 53.0 % Lymphocytes (%) (Auto) 29.1 % Monocytes (%) (Auto) 10.6 % Eosinophils (%) (Auto) 6.3 % Basophils (%) (Auto) 0.5 % Neutrophils # (Auto) 4.55 K/uL (1.4-6.5) Lymphocytes # (Auto) 2.50 K/uL (1.2-3.4) Monocytes # (Auto) 0.91 K/uL (0.11-0.59) Eosinophils # (Auto) 0.54 K/uL (0-0.5) Basophils # (Auto) 0.04 K/uL (0-0.2) RDW Standard Deviation 52.5 fL (36.4-46.3) RDW Coefficient of Variation 16.0 % (11.5-14.5) Immature Granulocyte % (Auto) 0.5 % Immature Granulocyte # (Auto) 0.04 K/uL (0.00-0.02) Prothrombin Time 10.4 SECONDS (9.0-12.0) Prothromb Time International Ratio 1.0 (0.9-1.1) Activated Partial Thromboplast Time 25.6 SECONDS (21.0-31.0) Partial Thromboplastin Ratio 1.0 Anion Gap 6.0 mmol/L (3-11) Est Creatinine Clear Calc Drug Dose 32.2 ml/min Estimated GFR () 39.7 Estimated GFR (Non- 34.3 BUN/Creatinine Ratio 11.4 (10-20) Calcium Level 8.8 mg/dl (8.5-10.1) Total Bilirubin 0.5 mg/dl (0.2-1) Direct Bilirubin 0.2 mg/dl (0-0.2) Aspartate Amino Transf (AST/SGOT) 18 U/L (15-37) Alanine Aminotransferase (ALT/SGPT) 17 U/L (12-78) Alkaline Phosphatase 83 U/L (45-117) Troponin I < 0.015 ng/ml (0-0.045) Total Protein 6.7 gm/dl (6.4-8.2) Albumin 3.4 gm/dl (3.4-5.0) Lipase 130 U/L (73-393) Laboratory results per my review. ECG Indication: other (trauma) Rate (beats per minute): 61 Rhythm: sinus rhythm Findings: 1st degree AV block, no ectopy, other (no acute ST segment abnormalities) Comparison ECG Date: 11/24/15 Change: no significant change ED Course 1803: The patient was evaluated in room A4B. A complete history and physical examination were performed. 1999: I reevaluated the patient and he is resting. I discussed the exam findings with him and his family and I discussed the treatment plan. They verbalized complete understanding and agreement. The patient is ready to go home. Medical Decision Differential diagnosis: Etiologies such as fracture, dislocation, intra-abdominal, pneumothorax, intrathoracic , intracranial, neurologic, as well as other traumatic pathologies were entertained. Nursing notes reviewed. The patient is an 81-year-old female who presented to emergency department for evaluation of fall. The patient has a history of dementia and does not have any complaints upon arrival but reportedly had a fall and struck his head. The patient is a history of recently diagnosed lung mass. I discussed patient's laboratory and radiographic studies with him and his significant other. He was able to ambulate without difficulty. He appeared to be at his baseline. I discussed follow-up with his encouraged him to call his primary care physician to schedule follow-up appointment as it is possible. He was also encouraged to use his walker as often as possible. He was also encouraged return to emergency apartment immediately if symptoms change worsen or the need arises. Head Trauma GCS Score: 14 Medication Reconcilliation Current Medication List: was personally reviewed by me Blood Pressure Screening Patient's blood pressure: Elevated blood pressure Blood pressure disposition: Elevated BP felt to be situational, Did not require urgent referral Impression Primary Impression: Fall Additional Impressions: Head injury Generalized weakness Scribe Attestation The scribe's documentation has been prepared under my direction and personally reviewed by me in its entirety. I confirm that the note above accurately reflects all work, treatment, procedures, and medical decision making performed by me. Departure Information Dispostion Home / Self-Care Referrals Dino Brandon M.D. (PCP) Forms HOME CARE DOCUMENTATION FORM, IMPORTANT VISIT INFORMATION Patient Instructions Falls Prevent Home, Falls Preventing, [facility] Additional Instructions Call your family to schedule a follow-up appointment. Rest and avoid any strenuous activity. Continue all medications as prescribed. Try to ambulate with assistance or using a walker. Problem Qualifiers Primary Impression: Fall Encounter type: initial encounter Qualified Codes: W19.XXXA - Unspecified fall, initial encounter Additional Impressions: Head injury Encounter type: initial encounter Qualified Codes: S09.90XA - Unspecified injury of head, initial encounter
[2016-12-16 18:30] LABS: BASO % 0.5 %; BASO ABS # 0.04 K/uL (0-0.2); COMPLETE YES; EOS % 6.3 %; HEMATOCRIT 46.1 % (42-52); IG% 0.5 %; LYMPH % 29.1 %; MEAN CORPUSCULAR HEMOGLOBIN 29.3 pg (25-34); MEAN CORPUSCULAR HGB CONC 32.5 g/dl (32-36); MEAN PLATELET VOLUME 9.3 fL (7.4-10.4); MONO % 10.6 %; PLATELET COUNT 197 K/uL (130-400); RED BLOOD COUNT 5.12 M/uL (4.7-6.1); WHITE BLOOD COUNT 8.58 K/uL (4.8-10.8)
[2016-12-16 18:39] LABS: PROTHROMBIN TIME (PATIENT) 10.4 SECONDS (9.0-12.0)
[2016-12-16 18:47] LABS: ALT/SGPT 17 U/L (12-78); AST/SGOT 18 U/L (15-37); BLOOD UREA NITROGEN 21 mg/dl (7-18); BUN/CREATININE RATIO 11.4 (10-20); CALCIUM 8.8 mg/dl (8.5-10.1); CARBON DIOXIDE 28 mmol/L (21-32); CHLORIDE 108 mmol/L (98-107); GLUCOSE 117 mg/dl (70-99); SODIUM 142 mmol/L (136-145)
--- NOTE | 2016-12-16 18:48 | DIAGNOSTIC IMAGING REPORT ---
HEAD WITHOUT CONTRAST (CT) CT DOSE: HISTORY: Trauma fall TECHNIQUE: Multiaxial CT images of the head were performed without the use of intravenous contrast. A dose lowering technique was utilized adhering to the principles of ALARA. Comparison: 08/19/2015 Findings: The paranasal sinuses and mastoid air cells are clear. The calvarium and skull base are intact. The ventricles and sulci are within normal limits. There is no mass, hematoma, midline shift, or acute infarct. Impression: No acute intracranial abnormality. The above report was generated using voice recognition software. It may contain grammatical, syntax or spelling errors. Electronically signed by: Job Traylor M.D. 12/16/2016 6:47 PM Dictated Date/Time: 12/16/2016 6:46 PM
[2016-12-16 18:52] LABS: ALKALINE PHOSPHATASE 83 U/L (45-117)
--- NOTE | 2016-12-16 18:52 | DIAGNOSTIC IMAGING REPORT ---
CERVICAL SPINE W/O CT DOSE: 1256.88 mGy.cm HISTORY: Trauma fall TECHNIQUE: Multiaxial CT images of the cervical spine were performed and reformatted in the sagittal and coronal plane without the use of contrast. A dose lowering technique was utilized adhering to the principles of ALARA. COMPARISON: 08/19/2015 FINDINGS: No fractures. No subluxation. Prevertebral soft tissues and the C1-C2 interval are intact. No pneumothorax. IMPRESSION: No fractures within the cervical spine. Moderate degenerative change. No change from the prior exam. The above report was generated using voice recognition software. It may contain grammatical, syntax or spelling errors. Electronically signed by: Job Traylor M.D. 12/16/2016 6:51 PM Dictated Date/Time: 12/16/2016 6:49 PM
--- NOTE | 2016-12-16 19:36 | DIAGNOSTIC IMAGING REPORT ---
CHEST 2 VIEWS ROUTINE CLINICAL HISTORY: fall trauma COMPARISON STUDY: 11/23/2015 FINDINGS: The bones soft tissues and hemidiaphragms are normal. The cardiomediastinal silhouette is normal. The lungs are clear. The pulmonary vasculature is normal. IMPRESSION: Negative chest. The above report was generated using voice recognition software. It may contain grammatical, syntax or spelling errors. Electronically signed by: Job Traylor M.D. 12/16/2016 7:35 PM Dictated Date/Time: 12/16/2016 7:34 PM
--- NOTE | 2016-12-16 19:37 | DIAGNOSTIC IMAGING REPORT ---
L-SPINE MIN 4 VIEWS ROUTINE HISTORY: Trauma fall COMPARISON: 06/14/2016 FINDINGS: There is no fracture. No subluxation. Operative changes consistent with posterior laminectomy and fusion from L2 through S1. Mild stable scoliosis. IMPRESSION: Stable degenerative and postoperative change. No acute process. The above report was generated using voice recognition software. It may contain grammatical, syntax or spelling errors. Electronically signed by: Job Traylor M.D. 12/16/2016 7:36 PM Dictated Date/Time: 12/16/2016 7:35 PM
--- NOTE | 2016-12-16 19:38 | DIAGNOSTIC IMAGING REPORT ---
PELVIS 1 OR 2 VIEW ROUTINE CLINICAL HISTORY: fall pain COMPARISON: 04/05/2015 DISCUSSION: No acute bony abnormality. No evidence for acetabular protrusion. Postoperative changes of the lumbar spine and low soft tissue pelvis. There is no evidence for soft tissue swelling. IMPRESSION: No acute process. The above report was generated using voice recognition software. It may contain grammatical, syntax or spelling errors. Electronically signed by: Job Traylor M.D. 12/16/2016 7:37 PM Dictated Date/Time: 12/16/2016 7:36 PM
[2016-12-16 20:00] VITALS: BP 148/67; PULSE 56; O2SAT 97
== END 2016-12-16 20:15 | disposition home or self-care (01) ==
LOC: EDBD 17:58 → C.EDA 18:00
DX: S09.90XA Unspecified injury of head, initial encounter (principal); W19.XXXA Unspecified fall, initial encounter; R53.1 Weakness; R41.82 Altered mental status, unspecified; I25.10 Atherosclerotic heart disease of native coronary artery without angina pectoris; I25.2 Old myocardial infarction; Z80.42 Family history of malignant neoplasm of prostate; I10 Essential (primary) hypertension

== ENCOUNTER → 2016-12-21 | Outpatient (CLI) | payer OTHER ==
--- NOTE | 2016-12-21 11:53 | DIAGNOSTIC IMAGING REPORT ---
PET/CT SKULL-THIGH CLINICAL HISTORY: Solitary pulmonary nodule COMPARISON STUDY: Chest CT dated 12/08/2016 FINDINGS: The patient was injected with 11.4 mCi of F 18 FDG. Findings standard induction phase, PET/CT scanning is performed from the skull base the upper thigh region. Activity within the neck is felt to be physiologic. Within the chest, there is no pathologic mounika activity. There is a 14 mm pleural-based solid left lower lobe pulmonary nodule. This is not significantly FDG avid activity not exceeding background Within the abdomen and pelvis, there is physiologic urinary tract and bowel activity. There is no pathologic mounika activity within the abdomen or pelvis. There is no pathologic adrenal gland activity. IMPRESSION: 1. No evidence of pathologic FDG activity 2. 14 mm pleural-based solid left lower lobe pulmonary nodule. This is not significantly FDG avid Electronically signed by: Anthony Pelaez M.D. 12/21/2016 11:51 AM Dictated Date/Time: 12/21/2016 11:46 AM
== END | disposition home or self-care (01) ==
LOC: C.PET 07:55
PROVIDERS: ATTEND Internal Medicine Pulmonary Disease
DX: R91.1 Solitary pulmonary nodule (principal)

== ENCOUNTER → 2017-01-28 | Day surgery (SDC) | payer OTHER ==
[2017-01-05 15:25] VITALS: Ht 180.3 cm; Wt 97.7 kg
[~2017-01-28] VITALS: Ht 180.3 cm; Wt 97.7 kg
[~2017-01-28] MED LIST changes: +BUPIVACAINE 0.25% 2.5MG/ML PF 10 ML VIAL ONE; +IOPAMIDOL INJ 61% 15 ML VIAL ONE; +LIDOCAINE HCL 1% MPF 5 ML VIAL ONE
[2017-01-28 13:28] VITALS: TEMP 36.4
--- NOTE | 2017-01-28 13:34 | Discharge Instructions ---
Discharge Instructions Date of Service Jan 28, 2017. Visit Reason for Visit: Sacroiliitis Discharge Discharge Diagnosis / Problem: low back pain Discharge Goals Goal(s): Decrease discomfort, Improve function Activity Recommendations Activity Limitations: resume your previous activity Anesthesia . Post Anesthesia Instructions: If you have had General Anesthesia or IV Sedation: * Do not drive today. * Resume driving when surgeon permits. * Do not make important decisions or sign legal documents today. * Call surgeon for: 1. Temperature elevations greater than 101 degrees F. 2. Uncontrollable pain. 3. Excessive bleeding. 4. Persistent nausea and vomiting. 5. Medication intolerance (nausea, vomiting or rash). * For nausea and vomiting use only clear liquids such as: tea, soda, bouillon until nausea subsides, then gradually increase diet as tolerated. * If you have any concerns or questions, call your surgeon's office. If physician is unavailable and it is an emergency, call 911 or go to the nearest emergency room. . Diet Recommendations Recommended Home Diet: resume previous diet Procedures Procedures Performed: Bilateral Sacroiliac Joint Injection Pending Studies Studies pending at discharge: no Medical Emergencies . Who to Call and When: Medical Emergencies: If at any time you feel your situation is an emergency, please call 911 immediately. . Non-Emergent Contact Non-Emergency issues call your: Specialist . . "Provider Documentation" section prepared by Jed Wallace. .
[2017-01-28 13:50] VITALS: BP 140/74; PULSE 53; O2SAT 95
--- NOTE | 2017-01-28 14:23 | OPERATIVE REPORT ---
DATE OF OPERATION: 01/28/2017 PREOPERATIVE DIAGNOSIS: Bilateral sacroiliitis. In addition, he has a history of lumbar fusion. POSTOPERATIVE DIAGNOSIS: Same. PROCEDURE: Bilateral sacroiliac joint injection under fluoroscopic guidance. SURGEON: Dr. Jed Wallace. INDICATIONS: The patient is an 81-year-old white male who had received injections 3 months ago with about 35% improvement in his pain levels. He wishes to get the injections done again to provide him with similar or greater pain relief. PHYSICAL EXAMINATION: Pleasant male seated comfortably. He has point tenderness to palpation of his sacroiliac joints. They are uncomfortable to palpation bilaterally and worse with some extension. He has no focal weakness of the lower extremities. Negative seated straight leg raises. CONSENT: Verbal and written consent was obtained from the patient. Risks and benefits were reviewed. Risks include but are not limited to infection, abscess, allergic reaction. The patient wishes to proceed. PROCEDURE: The patient was taken back in the special procedures room of [facility]. He was maintained in a prone position. Backside was cleansed with Betadine x3 and a dry sterile dressing was applied. Fluoroscope was used to identify the left sacroiliac joint and the overlying skin was anesthetized with 2.5 mL of lidocaine 1% with a 25 gauge 1.5" needle. A 25 gauge 3.5" spinal needle was then directed into the joint. Isovue 300 contrast 0.25 mL demonstrated intraarticular uptake. He then underwent injection after negative aspiration of 40 mg of Depo-Medrol, 1.5 mL of bupivacaine 0.25%. The procedure was well tolerated. The patient then had localization of his right sacroiliac joint. The overlying skin anesthetized with 4 mL of lidocaine 1% with 25 gauge 1.5" needle. With 2.5 mL of lidocaine 1% a 25 gauge 3.5" needle was then directed into the joint. Isovue 300 contrast was injected in and showed it to be intraarticularly placed. He then underwent injection after negative aspiration of 1.5 mL of bupivacaine 0.25% and 40 mg of Depo-Medrol. Injection was well tolerated. DISPOSITION: 1. The patient is taken out into the discharge recovery area where he will be discharged home once his discharge criteria have been met. 2. Follow up in the [facility] office 2-4 weeks. I attest to the content of the Intraoperative Record and any orders documented therein. Any exception s are noted below.
== END | disposition home or self-care (01) ==
LOC: X.SURG 11:30
PROVIDERS: ATTEND Physical Medicine & Rehabilitation
DX: M46.1 Sacroiliitis, not elsewhere classified (principal); Z79.82 Long term (current) use of aspirin; Z79.899 Other long term (current) drug therapy

== ENCOUNTER → 2017-02-02 | Outpatient (CLI) | payer OTHER ==
[~2017-02-02] MED LIST changes: -BUPIVACAINE 0.25% 2.5MG/ML PF 10 ML VIAL ONE; -IOPAMIDOL INJ 61% 15 ML VIAL ONE; -LIDOCAINE HCL 1% MPF 5 ML VIAL ONE
--- NOTE | 2017-02-17 09:27 | CODING QUERY MEDICAL NECESSITY ---
CQSUPPORTING DIAGNOSIS NEEDED A supporting diagnosis is required for the test/procedure performed on this patient in order for us to be reimbursed by the patient's insurance. Please provide a supporting diagnosis for the following test/procedure listed below next to the test name along with your signature. *If there is no additional diagnosis for this patient that would support the following test/procedure please document that below next to the test/procedure. Test(s)/Procedure(s) that require a supporting diagnosis: DOS 02/02/17 URINE CULTURE TEST ORDERED BY ANJANA VICENTE Provider Signature: Date: Thank you Antonia Lee Health Information Management Once completed, please kindly fax back to [phone] For questions please call [phone]
== END | disposition home or self-care (01) ==
LOC: C.LABBC 13:52
PROVIDERS: ATTEND Nurse Practitioner Adult Health
DX: M19.90 Unspecified osteoarthritis, unspecified site (principal)

== ENCOUNTER 2017-02-12 10:52 | Emergency (ER) | payer OTHER ==
[~2017-02-12] VITALS: Ht 180.3 cm; Wt 98.0 kg
[~2017-02-12 10:52] MED LIST changes: -CARB25TA12 PO
[2017-02-12 10:57] VITALS: TEMP 36.7; Ht 180.3 cm; Wt 98.0 kg
[2017-02-12 11:51] LABS: BASO % 0.4 %; BASO ABS # 0.04 K/uL (0-0.2); COMPLETE YES; EOS % 3.8 %; HEMATOCRIT 47.4 % (42-52); IG% 0.5 %; LYMPH % 18.1 %; LYMPH ABS # 1.81 K/uL (1.2-3.4); MEAN CELL VOLUME 89.6 fL (80-100); MEAN CORPUSCULAR HEMOGLOBIN 29.7 pg (25-34); MEAN CORPUSCULAR HGB CONC 33.1 g/dl (32-36); MEAN PLATELET VOLUME 9.6 fL (7.4-10.4); MONO % 8.1 %; NEUT % 69.1 %; PLATELET COUNT 192 K/uL (130-400); RED BLOOD COUNT 5.29 M/uL (4.7-6.1)
[2017-02-12] MEDS ORDERED: CARB25TA12 PO (11:52)
[2017-02-12 11:58] LABS: PROTHROMBIN TIME (PATIENT) 10.8 SECONDS (9.0-12.0)
[2017-02-12 12:12] LABS: ALT/SGPT 30 U/L (12-78); BLOOD UREA NITROGEN 18 mg/dl (7-18); BUN/CREATININE RATIO 10.6 (10-20); CARBON DIOXIDE 22 mmol/L (21-32); CHLORIDE 111 mmol/L (98-107); GLUCOSE 95 mg/dl (70-99); POTASSIUM 3.9 mmol/L (3.5-5.1); SODIUM 143 mmol/L (136-145)
--- NOTE | 2017-02-12 12:18 | DIAGNOSTIC IMAGING REPORT ---
CT HEAD WITHOUT CONTRAST (CT) CLINICAL HISTORY: Fall. Trauma. COMPARISON STUDY: 8T 17 TECHNIQUE: Axial CT of the brain is performed from the vertex to the skull base. IV contrast was not administered for this examination. A dose lowering technique was utilized adhering to the principles of ALARA. CT DOSE: FINDINGS: No intra or extra-axial mass lesions are visualized. There is no CT evidence of acute cortical infarction. There is no evidence of midline shift. There is no acute hemorrhage. No calvarial fractures are visualized. There are patchy white matter hypodensities likely on a small vessel basis. There is no evidence of pathologic ventricular dilatation. There is no evidence of acute sinusitis IMPRESSION: No acute intracranial findings Electronically signed by: Anthony Pelaez M.D. 02/12/2017 12:17 PM Dictated Date/Time: 02/12/2017 12:16 PM
[2017-02-12] MEDS ORDERED: SODIUM CHLORIDE 0.9% 1000ML 1,000 ML IV STA (12:20)
[2017-02-12 12:22] LABS: ALB/GLOB RATIO 1.1 (0.9-2); ALKALINE PHOSPHATASE 84 U/L (45-117); AST/SGOT 21 U/L (15-37)
--- NOTE | 2017-02-12 12:22 | DIAGNOSTIC IMAGING REPORT ---
CERVICAL SPINE CT CT DOSE: 1112.56 mGy.cm HISTORY: fall TECHNIQUE: Multiaxial CT images of the cervical spine were performed and reformatted in the sagittal and coronal plane without the use of contrast. A dose lowering technique was utilized adhering to the principles of ALARA. COMPARISON: Cervical spine CT 12/16/2016. FINDINGS: No fractures. No subluxation. Prevertebral soft tissues and the C1-C2 interval are intact. No pneumothorax. Moderate to severe degenerative disease at C5-C6 and C6-C7, unchanged. IMPRESSION: No fractures within the cervical spine. Electronically signed by: Tip Kunz M.D. 02/12/2017 12:21 PM Dictated Date/Time: 02/12/2017 12:17 PM
--- NOTE | 2017-02-12 12:27 | DIAGNOSTIC IMAGING REPORT ---
CHEST ONE VIEW PORTABLE CLINICAL HISTORY: Atypical chest pain and confusion. COMPARISON STUDY: December 16, 2016 FINDINGS: The heart is borderline enlarged. There is no failure. There is no focal pulmonary consolidation. No pleural effusions are visualized. The previously reported left lower lobe pulmonary nodule is not visualized the current AP portable examination there are postsurgical changes involving the right shoulder.[ IMPRESSION: No active disease in the chest. Electronically signed by: Anthony Pelaez M.D. 02/12/2017 12:26 PM Dictated Date/Time: 02/12/2017 12:25 PM
[2017-02-12] MEDS ORDERED: OPTIRAY 320 IV PRN (12:30)
[2017-02-12 12:47] LABS: URINE APPEARANCE CLEAR (CLEAR); URINE BILIRUBIN NEG (NEG); URINE COLOR DK YELLOW; URINE NITRITE NEG (NEG); URINE SPECIFIC GRAVITY 1.024 (1.000-1.030); UROBILINOGEN NEG (NEG); ZZUR CULT IF INDIC CLEAN CATCH NO
[2017-02-12 12:57] LABS: MANUAL MICROSCOPIC REQUIRED? NO; REVIEW REQ? NO
--- NOTE | 2017-02-12 13:22 | DIAGNOSTIC IMAGING REPORT ---
CHEST CTA for PULMONARY ARTERIES CT DOSE: HISTORY: Lower chest pain. TECHNIQUE: Multiaxial CT images of the chest were performed following the intravenous administration of contrast to evaluate the pulmonary arteries. Maximal intensity projection images were also obtained. A dose lowering technique was utilized adhering to the principles of ALARA. COMPARISON STUDY: Chest CT 12/08/2016. FINDINGS: No significant change in the 1.7 x 1.1 cm lobular nodule within the base of the left lower lobe. Small amount of mucoid material within the right mainstem bronchus. The remaining central airways are patent. No pleural effusions. No pneumothorax. Groundglass densities at the lung bases favor mild dependent change. No new pulmonary nodules identified. Right shoulder prosthesis is only partially visualized. No suspicious lytic or blastic osseous lesions. No mediastinal or hilar lymphadenopathy. Normal caliber thoracic aorta. Evaluation for an aortic dissection is limited due to the lack of intravenous contrast. No definite dissection within the ascending thoracic aorta. No filling defects within the pulmonary arteries to suggest pulmonary embolus. The heart remains mildly enlarged. IMPRESSION: 1. No evidence for pulmonary embolus. 2. There is again noted a 1.7 x 1.1 cm lobulated nodule within the base of the left lower lobe. This still remains suspicious for a primary bronchogenic neoplasm. 3. Groundglass densities at the lung bases favor mild dependent change. Electronically signed by: Tip Kunz M.D. 02/12/2017 1:21 PM Dictated Date/Time: 02/12/2017 1:06 PM
--- NOTE | 2017-02-12 13:40 | DIAGNOSTIC IMAGING REPORT ---
ANGIO ABD/PELVIS WITH CONTRAST CLINICAL HISTORY: 81 years-old Male presenting with abdominal pain, lower chest pain, near syncope. TECHNIQUE: Multidetector CT angiography of the abdomen and pelvis was performed after the administration of intravenous contrast. 3-D volumetric and/or maximum intensity projection (MIP) images were subsequently reconstructed for review. IV contrast: 95 mL of Optiray 320. A dose lowering technique was used consistent with the principles of ALARA (as low as reasonably achievable). Stenosis measurements were based on NASCET-like criteria. COMPARISON: 11/11/2016. CT DOSE (mGy.cm): The estimated cumulative dose is 1423.61 mGy.cm. FINDINGS: [employer] topogram: Unremarkable. Vasculature: Multichamber enlargement of the heart. Coronary artery and aortic valve calcification. Atherosclerosis of the aorta, which is normal in caliber. Origins of the celiac and superior mesenteric arteries patent. Origin of the single right main renal artery patent. Origins of the 2 left main renal arteries patent, one of which has an early branching pattern immediately distal to or essentially at the origin at the aorta. Atherosclerotic plaque mildly narrows the origin of the inferior mesenteric artery. Bilateral iliac vessels patent as are the proximal common femoral vessels. No aneurysm or dissection. Remaining abdomen and pelvis: Dependent opacities at the lungs likely atelectasis. Additionally a solid 14 mm nodule is noted in the left lung base (series 4 image 322). Liver, gallbladder, pancreas, spleen, and adrenal glands normal. Bilateral cortical atrophy of the kidneys with multiple hypodensities suggestive of cysts. Evaluation of renal parenchyma is limited in the single arterial phase. No hydronephrosis. No nephrolithiasis. Ureters normal. Bladder decompressed and incompletely evaluated. Post surgical changes of prostatectomy. Unremarkable ureteral anastomosis. Hollow viscera normal. No free fluid. No lymphadenopathy. Degenerative changes of the pubic symphysis, sacroiliac joints, and lumbar spine. Focal kyphosis of the lumbar spine at L2-3. Posterior fusion hardware in the lumbar spine noted. No gross evidence of sclerotic osseous lesions. IMPRESSION: 1. Atherosclerosis of the abdominal aorta and major branch vessels, although the origins of the branch vessels remain patent. No acute aortic injury. 2. Solid 14 mm nodule in the left lower lobe. Follow-up per Alejandro Society 2017 recommendations below. 3. Post surgical changes of prostatectomy. No lymphadenopathy. 4. Cortical atrophy of the kidneys could suggest medical renal disease. Please refer to below summary of Fleischner Society 2017 recommendations for follow-up of incidental CT nodules (H Starr et al. Guidelines for management of incidental pulmonary nodules detected on CT images: From the Fleischner Society 2017. Radiology 2017; 284: 228-243.) SOLID NODULES Single nodule; size < 6 mm * Low risk patients: No routine follow-up * High risk patients: Optional CT at 12 months Single nodule; size 6-8 mm * Low risk patients: CT at 6-12 months, then consider CT at 18-24 months * High risk patients: CT at 6-12 months, then at 18-24 months Single nodule; size > 8 mm * Either low or high risk patients: Considered CT at 3 months, PET/CT, or tissue sampling Multiple nodules; size < 6 mm * Low risk patients: No routine follow up * High risk patients: Optional CT at 12 months Multiple nodules; size 6-8 mm * Low risk patients: CT at 3-6 months, then consider CT at 18-24 months * High risk patients: CT at 3-6 months, then at 18-24 months Multiple nodules; size > 8 mm * Low risk patients: CT at 3-6 months, then consider at 18-24 months * High risk patients: CT at 3-6 months, then at 18-24 months Note: These guidelines apply to incidental nodules. These guidelines do not apply to patients younger than 35 years, immunocompromised patients, or patients with cancer. * Low risk patients: Minimal or absent history of smoking and/or other known risk factors * High risk patients: History of smoking, exposure to other carcinogens, emphysema, fibrosis, upper lobe location, family history of lung cancer, etc. * If a nodule up to 8 mm is partly solid or is ground glass, further follow-up is required after 24 months to exclude possible slow growing adenocarcinoma. SUBSOLID NODULES Single ground-glass nodule * Nodule size < 6 mm: No routine follow-up * Nodule size > or = 6 mm: CT at 6-12 months to confirm persistence, then CT every 2 years until 5 years Single part-solid nodule * Nodule size < 6 mm: No routine follow-up * Nodules size > or = 6 mm: CT at 3-6 months to confirm persistence. If unchanged and solid component remains < 6 mm, annual CT should be performed for 5 years Multiple nodules * Nodule size < 6 mm: CT at 3-6 months. If stable, consider CT at 2 and 4 years. * Nodules size > or = 6 mm: CT at 3-6 months. Subsequent management based on the most suspicious nodule(s) Electronically signed by: Jam Carlson M.D. 02/12/2017 1:38 PM Dictated Date/Time: 02/12/2017 1:30 PM
[2017-02-12 16:21] VITALS: BP 148/90; PULSE 58; O2SAT 96
--- NOTE | 2017-02-12 16:42 | EMERGENCY ROOM VISIT NOTE ---
History Report prepared by Sue: Carlos Carrillo Under the Supervision of: Dr. Charisma Maloney D.O. First contact with patient: 11:17 Chief Complaint: FALL Stated Complaint: CONFUSION History of Present Illness The patient is a 81 year old male who presents to the Emergency Room with complaints of a persistent altered mental status s/p fall occurring just prior to arrival. He has a history of Parkinsonism and CHF. Per , the patient fell while changing clothes today. She states that he had increased confusion this morning before the episode, and has appeared a bit more confused since. She states that he commented that his chest "didn't feel right" just prior to falling. The patient's denies any vomiting or diarrhea. She states that he was complaining that he "didn't feel right" yesterday as well. She notes that he appeared diaphoretic prior to falling today. HPI limited secondary to mental state. Source of History: spouse/significant other () History Limited By: other (mental state) Onset: Just prior to arrival Quality: other (altered mental status) Timing: other (persistent) Associated Symptoms: + diaphoresis, No vomiting, No diarrhea Note: Additional symptoms: chest "didn't feel right". Review of Systems ROS limited secondary to mental state. Past Medical & Surgical Medical Problems: (1) Cardiac catheterization (2) Coronary Atherosclerosis Of [place] Coronary Vessel (3) Heart disease (4) Hx-Prostatic Malignancy (5) Hypertension Nos (6) Malignant melanoma (7) Old Myocardial Infarct (8) Pneumonia, Organism Nos (9) tia Family History Patient reports no known family medical history. Social History Smoking Status: Never Smoker Alcohol Use: none Drug Use: none Marital Status: Housing Status: lives with family Occupation Status: retired Current/Historical Medications Scheduled Ascorbic Acid (Vitamin C), 500 MG PO QAM Aspirin (Aspirin Chewable), 81 MG PO QAM Calcium Carbonate-Cholecalcife (Caltrate 600+D), 1 TAB PO QAM Carbidopa/Levodopa (Sinemet 25MG/100MG), 0.5 TAB PO BID Cholecalciferol (Vitamin D3), 1,000 UNITS PO QAM Cyclosporine (Ophth) (Restasis), 1 DROP OPB QAM Furosemide (Lasix), 40 MG PO Q2D Isosorbide Mononitrate (Isosorbide Mononitrate ER), 30 MG PO QAM Metoprolol Succ (Toprol Xl) (Toprol-Xl), 12.5 MG PO QAM Multiple Vitamins W/ Minerals (Centrum Silver Adult 50+), 1 TAB PO QAM Pantoprazole (Protonix), 40 MG PO QAM Polyethylene Glycol 3350 (Miralax), 17 GM PO DAILY Potassium Chloride (K-Tab), 1 TAB PO Q2D Rivastigmine Tartrate (Rivastigmine Tartrate), 6 MG PO QAM Sertraline HCl (Sertraline HCl), 100 MG PO HS Simvastatin (Zocor), 20 MG PO QPM Scheduled PRN Nitroglycerin (Nitrostat), 0.4 MG UT UD PRN for Chest Pain Tramadol (Ultram), 25 MG PO Q4H PRN for Pain Allergies Coded Allergies: Gabapentin (Verified Adverse Reaction, Severe, HALLUCINATIONS-DOUBLE VISION, 01/28/17) Physical Exam Vital Signs Date Time Temp Pulse Resp B/P (MAP) Pulse Ox O2 Delivery O2 Flow Rate FiO2 02/12/17 16:21 58 20 148/90 96 Room Air 02/12/17 14:16 52 16 139/80 97 Room Air 02/12/17 13:40 51 02/12/17 12:32 56 18 160/86 95 Room Air 02/12/17 11:02 71 02/12/17 10:57 36.7 66 18 141/82 93 Room Air Physical Exam GENERAL: alert, well appearing, well nourished, no distress, non-toxic EYE EXAM: normal conjunctiva, PERRL and EOM's grossly intact OROPHARYNX: no exudate, no erythema, lips, buccal mucosa, and tongue normal and mucous membranes are moist NECK: supple, no nuchal rigidity, no adenopathy, non-tender LUNGS: Clear to auscultation. Normal chest wall mechanics HEART: no murmurs, S1 normal and S2 normal ABDOMEN: abdomen soft, non-tender, normo-active bowel sounds, no masses, no rebound or guarding. BACK: Back is symmetrical on inspection and there is no deformity, no midline tenderness, no CVA tenderness. SKIN: no rashes and no bruising UPPER EXTREMITIES: upper extremities are grossly normal. LOWER EXTREMITIES: No pitting edema. NEURO EXAM: Awake and alert, but confused. Moves all four extremities. Normal strength and ROM. Normal sensorium. Medical Decision & Procedures ER Provider Diagnostic Interpretation: Radiology results have been interpreted by the radiologist and reviewed by me. CT HEAD WITHOUT CONTRAST (CT) FINDINGS: No intra or extra-axial mass lesions are visualized. There is no CT evidence of acute cortical infarction. There is no evidence of midline shift. There is no acute hemorrhage. No calvarial fractures are visualized. There are patchy white matter hypodensities likely on a small vessel basis. There is no evidence of pathologic ventricular dilatation. There is no evidence of acute sinusitis IMPRESSION: No acute intracranial findings Electronically signed by: Anthony Pelaez M.D. 02/12/2017 12:[address] FINDINGS: No fractures. No subluxation. Prevertebral soft tissues and the C1-C2 interval are intact. No pneumothorax. Moderate to severe degenerative disease at C5-C6 and C6-C7, unchanged. IMPRESSION: No fractures within the cervical spine. Electronically signed by: Tip Kunz M.D. 02/12/2017 12:21 PM CHEST CTA for PULMONARY ARTERIES FINDINGS: No significant change in the 1.7 x 1.1 cm lobular nodule within the base of the left lower lobe. Small amount of mucoid material within the right mainstem bronchus. The remaining central airways are patent. No pleural effusions. No pneumothorax. Groundglass densities at the lung bases favor mild dependent change. No new pulmonary nodules identified. Right shoulder prosthesis is only partially visualized. No suspicious lytic or blastic osseous lesions. No mediastinal or hilar lymphadenopathy. Normal caliber thoracic aorta. Evaluation for an aortic dissection is limited due to the lack of intravenous contrast. No definite dissection within the ascending thoracic aorta. No filling defects within the pulmonary arteries to suggest pulmonary embolus. The heart remains mildly enlarged. IMPRESSION: 1. No evidence for pulmonary embolus. 2. There is again noted a 1.7 x 1.1 cm lobulated nodule within the base of the left lower lobe. This still remains suspicious for a primary bronchogenic neoplasm. 3. Groundglass densities at the lung bases favor mild dependent change. Electronically signed by: Tip Kunz M.D. 02/12/2017 1:21 PM ANGIO ABD/PELVIS WITH CONTRAST FINDINGS: Neurology Teacher topogram: Unremarkable. Vasculature: Multichamber enlargement of the heart. Coronary artery and aortic valve calcification. Atherosclerosis of the aorta, which is normal in caliber. Origins of the celiac and superior mesenteric arteries patent. Origin of the single right main renal artery patent. Origins of the 2 left main renal arteries patent, one of which has an early branching pattern immediately distal to or essentially at the origin at the aorta. Atherosclerotic plaque mildly narrows the origin of the inferior mesenteric artery. Bilateral iliac vessels patent as are the proximal common femoral vessels. No aneurysm or dissection. Remaining abdomen and pelvis: Dependent opacities at the lungs likely atelectasis. Additionally a solid 14 mm nodule is noted in the left lung base (series 4 image 322). Liver, gallbladder, pancreas, spleen, and adrenal glands normal. Bilateral cortical atrophy of the kidneys with multiple hypodensities suggestive of cysts. Evaluation of renal parenchyma is limited in the single arterial phase. No hydronephrosis. No nephrolithiasis. Ureters normal. Bladder decompressed and incompletely evaluated. Post surgical changes of prostatectomy. Unremarkable ureteral anastomosis. Hollow viscera normal. No free fluid. No lymphadenopathy. Degenerative changes of the pubic symphysis, sacroiliac joints, and lumbar spine. Focal kyphosis of the lumbar spine at L2-3. Posterior fusion hardware in the lumbar spine noted. No gross evidence of sclerotic osseous lesions. IMPRESSION: 1. Atherosclerosis of the abdominal aorta and major branch vessels, although the origins of the branch vessels remain patent. No acute aortic injury. 2. Solid 14 mm nodule in the left lower lobe. Follow-up per Alejandro Society 2017 recommendations below. 3. Post surgical changes of prostatectomy. No lymphadenopathy. 4. Cortical atrophy of the kidneys could suggest medical renal disease. Please refer to below summary of Fleischner Society 2017 recommendations for follow-up of incidental CT nodules (H Starr et al. Guidelines for management of incidental pulmonary nodules detected on CT images: From the Fleischner Society 2017. Radiology 2017; 284: 228-243.) SOLID NODULES Single nodule; size < 6 mm * Low risk patients: No routine follow-up * High risk patients: Optional CT at 12 months Single nodule; size 6-8 mm * Low risk patients: CT at 6-12 months, then consider CT at 18-24 months * High risk patients: CT at 6-12 months, then at 18-24 months Single nodule; size > 8 mm * Either low or high risk patients: Considered CT at 3 months, PET/CT, or tissue sampling Multiple nodules; size < 6 mm * Low risk patients: No routine follow up * High risk patients: Optional CT at 12 months Multiple nodules; size 6-8 mm * Low risk patients: CT at 3-6 months, then consider CT at 18-24 months * High risk patients: CT at 3-6 months, then at 18-24 months Multiple nodules; size > 8 mm * Low risk patients: CT at 3-6 months, then consider at 18-24 months * High risk patients: CT at 3-6 months, then at 18-24 months Note: These guidelines apply to incidental nodules. These guidelines do not apply to patients younger than 35 years, immunocompromised patients, or patients with cancer. * Low risk patients: Minimal or absent history of smoking and/or other known risk factors * High risk patients: History of smoking, exposure to other carcinogens, emphysema, fibrosis, upper lobe location, family history of lung cancer, etc. * If a nodule up to 8 mm is partly solid or is ground glass, further follow-up is required after 24 months to exclude possible slow growing adenocarcinoma. SUBSOLID NODULES Single ground-glass nodule * Nodule size < 6 mm: No routine follow-up * Nodule size > or = 6 mm: CT at 6-12 months to confirm persistence, then CT every 2 years until 5 years Single part-solid nodule * Nodule size < 6 mm: No routine follow-up * Nodules size > or = 6 mm: CT at 3-6 months to confirm persistence. If unchanged and solid component remains < 6 mm, annual CT should be performed for 5 years Multiple nodules * Nodule size < 6 mm: CT at 3-6 months. If stable, consider CT at 2 and 4 years. * Nodules size > or = 6 mm: CT at 3-6 months. Subsequent management based on the most suspicious nodule(s) Electronically signed by: Jam Carlson M.D. 02/12/2017 1:38 PM CHEST ONE VIEW PORTABLE FINDINGS: The heart is borderline enlarged. There is no failure. There is no focal pulmonary consolidation. No pleural effusions are visualized. The previously reported left lower lobe pulmonary nodule is not visualized the current AP portable examination there are postsurgical changes involving the right shoulder.[ IMPRESSION: No active disease in the chest. Electronically signed by: Anthony Pelaez M.D. 02/12/2017 12:26 PM Laboratory Results 02/12/17 11:10 Red Blood Count 5.29, Mean Corpuscular Volume 89.6, Mean Corpuscular Hemoglobin 29.7, Mean Corpuscular Hemoglobin Concent 33.1, Mean Platelet Volume 9.6, Neutrophils (%) (Auto) 69.1, Lymphocytes (%) (Auto) 18.1, Monocytes (%) (Auto) 8.1, Eosinophils (%) (Auto) 3.8, Basophils (%) (Auto) 0.4, Neutrophils # (Auto) 6.91, Lymphocytes # (Auto) 1.81, Monocytes # (Auto) 0.81, Eosinophils # (Auto) 0.38, Basophils # (Auto) 0.04 02/12/17 11:10 Test 02/12/17 11:10 02/12/17 11:58 02/12/17 12:30 02/12/17 15:24 White Blood Count 10.00 K/uL (4.8-10.8) Red Blood Count 5.29 M/uL (4.7-6.1) Hemoglobin 15.7 g/dL (14.0-18.0) Hematocrit 47.4 % (42-52) Mean Corpuscular Volume 89.6 fL (80-100) Mean Corpuscular Hemoglobin 29.7 pg (25-34) Mean Corpuscular Hemoglobin Concent 33.1 g/dl (32-36) Platelet Count 192 K/uL (130-400) Mean Platelet Volume 9.6 fL (7.4-10.4) Neutrophils (%) (Auto) 69.1 % Lymphocytes (%) (Auto) 18.1 % Monocytes (%) (Auto) 8.1 % Eosinophils (%) (Auto) 3.8 % Basophils (%) (Auto) 0.4 % Neutrophils # (Auto) 6.91 K/uL (1.4-6.5) Lymphocytes # (Auto) 1.81 K/uL (1.2-3.4) Monocytes # (Auto) 0.81 K/uL (0.11-0.59) Eosinophils # (Auto) 0.38 K/uL (0-0.5) Basophils # (Auto) 0.04 K/uL (0-0.2) RDW Standard Deviation 47.8 fL (36.4-46.3) RDW Coefficient of Variation 14.8 % (11.5-14.5) Immature Granulocyte % (Auto) 0.5 % Immature Granulocyte # (Auto) 0.05 K/uL (0.00-0.02) Prothrombin Time 10.8 SECONDS (9.0-12.0) Prothromb Time International Ratio 1.0 (0.9-1.1) D-Dimer 610 ug/L FEU (0-500) Anion Gap 10.0 mmol/L (3-11) Est Creatinine Clear Calc Drug Dose 40.0 ml/min Estimated GFR () 42.6 Estimated GFR (Non- 36.7 BUN/Creatinine Ratio 10.6 (10-20) Calcium Level 9.0 mg/dl (8.5-10.1) Total Bilirubin 0.9 mg/dl (0.2-1) Aspartate Amino Transf (AST/SGOT) 21 U/L (15-37) Alanine Aminotransferase (ALT/SGPT) 30 U/L (12-78) Alkaline Phosphatase 84 U/L (45-117) Troponin I < 0.015 ng/ml (0-0.045) Pro-B-Type Natriuretic Peptide 341 pg/ml (0-1800) Total Protein 6.9 gm/dl (6.4-8.2) Albumin 3.6 gm/dl (3.4-5.0) Globulin 3.3 gm/dl (2.5-4.0) Albumin/Globulin Ratio 1.1 (0.9-2) Thyroid Stimulating Hormone (TSH) 3.280 uIu/ml (0.300-4.500) Lactic Acid Level 1.2 mmol/L (0.4-2.0) Urine Color DK YELLOW Urine Appearance CLEAR (CLEAR) Urine pH 5.0 (4.5-7.5) Urine Specific [place] 1.024 (1.000-1.030) Urine Protein NEG (NEG) Urine Glucose (UA) NEG (NEG) Urine Ketones NEG (NEG) Urine Occult Blood NEG (NEG) Urine Nitrite NEG (NEG) Urine Bilirubin NEG (NEG) Urine Urobilinogen NEG (NEG) Urine Leukocyte Esterase NEG (NEG) Bedside Troponin I < 0.030 ng/ml (0-0.045) Laboratory results per my review. Medications Administered Medications (Trade) Dose Ordered Sig/Nader Route Start Time Stop Time Status Last Admin Dose Admin Sodium Chloride 1,000 ml @ 125 mls/hr Q8H STAT IV 02/12/17 12:20 02/12/17 17:36 DC 02/12/17 12:20 125 MLS/HR ECG Indication: other (fall) Rate (beats per minute): 59 Rhythm: sinus bradycardia Findings: 1st degree AV block, Q waves (lead 3 and AVF. ), RBBB, no acute ischemic change, other (Normal axis. ) ED Course 1121: The patient was evaluated in room C4. A complete history and physical exam was performed. 1220: Ordered Sodium Chloride 1000 ml @ 125 mls/hr IV. 1402: I reassessed the patient. The patient's states that the patient appears to be nearly at his mental baseline. Patient tolerated by mouth here without any concerning symptoms. We'll attempt to emulate patient. 1630: Upon reevaluation, the patient is feeling better. I discussed the findings and the treatment plan with the patient and his . They verbalize agreement and understanding. He was discharged home. Patient was able to ambulate and what appears to be his baseline is comfortable taking him home. Medical Decision Differential diagnosis: Etiologies such as metabolic, infection, hypoglycemia, electrolyte abnormalities , cardiac sources, intracerebral event, toxicologic, neurologic, as well as others were entertained. Unclear etiology of events this morning. History limited history due to patient 's dementia/Parkinson's, unable to ascertain if patient had any prodromal symptoms leading to fall. She observed her for several hours as a precaution, no evidence of traumatic injury. Other labs reassuring, 2 troponins negative. Patient's vital signs stable throughout, and patient had no other recurrent symptoms here to suggest other evolving etiology. Doubt perforation, GI bleed, mesenteric ischemia, CVA/TIA, dissection, ACS, dysrhythmia, bowel obstruction, colitis, peptic ulcer disease. Patient's comfortable taking patient home, they do have assistance to come in to help them, and additional family is involved. Patient's aware of nodule noted on lung, was previously seen on CT and evaluated by pulmonology, Dr. Jaime. They have chosen at this time to forego biopsy and aggressive treatment in lieu of conservative management and monitoring. Medication Reconcilliation Current Medication List: was personally reviewed by me Blood Pressure Screening Patient's blood pressure: Elevated blood pressure Blood pressure disposition: Elevated BP felt to be situational Impression Primary Impression: Weakness Additional Impression: Fall Scribe Attestation The scribe's documentation has been prepared under my direction and personally reviewed by me in its entirety. I confirm that the note above accurately reflects all work, treatment, procedures, and medical decision making performed by me. Departure Information Dispostion Home / Self-Care Referrals Dino Brandon M.D. (PCP) Patient Instructions My [facility] Additional Instructions Please continue regular medications as prescribed. You may eat and drink normally. Please always use your walker or other assist device to get around the house. If you have any new or concerning symptoms, are unable to walk, or sustain a recurrent fall, please return the emergency room. Problem Qualifiers Additional Impression: Fall Encounter type: initial encounter Qualified Codes: W19.XXXA - Unspecified fall, initial encounter
== END 2017-02-12 16:50 | disposition home or self-care (01) ==
LOC: EDBD 10:52 → C.EDC 10:53
DX: R53.1 Weakness (principal); W19.XXXA Unspecified fall, initial encounter; I25.10 Atherosclerotic heart disease of native coronary artery without angina pectoris; I10 Essential (primary) hypertension; I51.9 Heart disease, unspecified; I25.2 Old myocardial infarction; Z85.820 Personal history of malignant melanoma of skin; Z85.46 Personal history of malignant neoplasm of prostate; Z86.73 Personal history of transient ischemic attack (TIA), and cerebral infarction without residual deficits; Z79.82 Long term (current) use of aspirin; Z79.899 Other long term (current) drug therapy; Z88.8 Allergy status to other drugs, medicaments and biological substances

== ENCOUNTER 2017-03-29 21:28 | Emergency (ER) | payer OTHER ==
[~2017-03-29] VITALS: Ht 177.8 cm; Wt 100.2 kg
[~2017-03-29 21:28] MED LIST changes: +CARB25TA12 PO
[2017-03-29 21:34] VITALS: TEMP 36.8; Ht 177.8 cm; Wt 100.2 kg
--- NOTE | 2017-03-29 22:29 | DIAGNOSTIC IMAGING REPORT ---
CT OF THE HEAD WITHOUT CONTRAST CLINICAL HISTORY: Fall with head injury. COMPARISON STUDY: Head CT February 12, 2017. CT DOSE: 1779.83 mGy.cm TECHNIQUE: Helical axial images of the head were obtained without IV contrast. Automated exposure control was utilized for the study. A dose lowering technique was utilized adhering to the principles of ALARA. FINDINGS: No acute intracranial hemorrhage, midline shift or mass effect is present. Ventricular system is stable. Basilar cisterns are patent. There are no extra-axial collections. White matter hypodensity suggests small vessel disease. There are no findings to suggest acute dural sinus thrombosis or acute territorial infarct. Sensitivity for detection of calvarial fractures is diminished given mild motion artifact. However, no displaced calvarial fractures are identified. IMPRESSION: 1. No acute intracranial findings. 2. No calvarial fractures identified. Electronically signed by: Chandrakant Velasquez M.D. 03/29/2017 10:27 PM Dictated Date/Time: 03/29/2017 10:23 PM
--- NOTE | 2017-03-29 22:43 | DIAGNOSTIC IMAGING REPORT ---
R KNEE 3 VIEWS CLINICAL HISTORY: Bilateral knee pain. COMPARISON: Left knee radiographs May 03, 2015 and bilateral knee radiographs April 05, 2015 FINDINGS: There is moderate lateral patellar tilt. No acute fracture is identified. There is moderate medial compartment joint space narrowing as well is moderate to marked narrowing of the lateral aspect of the patellofemoral compartment. There is chondrocalcinosis within the menisci. IMPRESSION: 1. No acute fracture or joint effusion the right knee. 2. Moderate to severe osteoarthritis of the right knee, most pronounced within the medial and patellofemoral compartments. Electronically signed by: Chandrakant Velasquez M.D. 03/29/2017 10:42 PM Dictated Date/Time: 03/29/2017 10:40 PM
--- NOTE | 2017-03-29 22:44 | DIAGNOSTIC IMAGING REPORT ---
L KNEE 3 VIEWS CLINICAL HISTORY: Bilateral knee pain. COMPARISON: Left knee radiographs May 03, 2015. FINDINGS: Alignment of the left knee is in anatomic with the exception of a lateral patellar tilt and marked narrowing of the lateral aspect of the patellofemoral compartment. There is chondrocalcinosis within the medial meniscus. No acute fracture or joint effusion is identified. IMPRESSION: 1. No acute fracture or joint effusion of the left knee. 2. Lateral patellar tilt with marked narrowing of the lateral patellofemoral compartment. Electronically signed by: Chandrakant Velasquez M.D. 03/29/2017 10:43 PM Dictated Date/Time: 03/29/2017 10:42 PM
[2017-03-29 23:12] VITALS: BP 122/84; PULSE 72; O2SAT 98
--- NOTE | 2017-03-30 00:19 | EMERGENCY ROOM VISIT NOTE ---
History Report prepared by Sue: Radha Lares Under the Supervision of: Heavenly GuevaraO. 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 The patient's states that the patient has a history of Parkinson's disease and had an episode of a fall tonight. She reports that he tripped tonight onto a reclining chair and his knees hit a tile floor. She notes that the patient was not able to stand up after the fall. The patient denies any pain and his notes that this is usual for him. She states that he is at his baseline mentally. The reports that the patient gets injections into his knees and right hip. 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 Denies any mental changes. Review of Systems See HPI for pertinent positives & negatives. A total of 10 systems reviewed and were otherwise negative. Past Medical & Surgical Medical Problems: (1) Cardiac catheterization (2) Coronary Atherosclerosis Of [place] Coronary Vessel (3) Heart disease (4) Hx-Prostatic Malignancy (5) Hypertension Nos (6) Malignant melanoma (7) Old Myocardial Infarct (8) Pneumonia, Organism Nos (9) tia Family History Patient reports no known family medical history. Social History Smoking Status: Never Smoker Alcohol Use: none Drug Use: none Marital Status: Housing Status: lives with family Occupation Status: retired Current/Historical Medications Scheduled Ascorbic Acid (Vitamin C), 500 MG PO QAM Aspirin (Aspirin Chewable), 81 MG PO QAM Calcium Carbonate-Cholecalcife (Caltrate 600+D), 1 TAB PO QAM Carbidopa/Levodopa (Sinemet 25MG/100MG), 0.5 TAB PO BID Cholecalciferol (Vitamin D3), 1,000 UNITS PO QAM Cyclosporine (Ophth) (Restasis), 1 DROP OPB QAM Furosemide (Lasix), 40 MG PO Q2D Isosorbide Mononitrate (Isosorbide Mononitrate ER), 30 MG PO QAM Metoprolol Succ (Toprol Xl) (Toprol-Xl), 12.5 MG PO QAM Multiple Vitamins W/ Minerals (Centrum Silver Adult 50+), 1 TAB PO QAM Pantoprazole (Protonix), 40 MG PO QAM Polyethylene Glycol 3350 (Miralax), 17 GM PO DAILY Potassium Chloride (K-Tab), 1 TAB PO Q2D Rivastigmine Tartrate (Rivastigmine Tartrate), 6 MG PO QAM Sertraline HCl (Sertraline HCl), 100 MG PO HS Simvastatin (Zocor), 20 MG PO QPM Scheduled PRN Nitroglycerin (Nitrostat), 0.4 MG UT UD PRN for Chest Pain Tramadol (Ultram), 25 MG PO Q4H PRN for Pain Allergies Coded Allergies: Gabapentin (Verified Adverse Reaction, Severe, HALLUCINATIONS-DOUBLE VISION, 03/29/17) Physical Exam Vital Signs Date Time Temp Pulse Resp B/P (MAP) Pulse Ox O2 Delivery O2 Flow Rate FiO2 03/29/17 23:12 72 18 122/84 98 Room Air 03/29/17 22:41 71 18 124/83 93 Room Air 03/29/17 21:34 36.8 75 20 170/83 96 Room Air Physical Exam GENERAL: sitting up in bed, alert, well appearing, well nourished, no distress, non-toxic HEAD: normal cephalic, atraumatic EYE EXAM: normal conjunctiva, PERRL and EOM's grossly intact OROPHARYNX: no exudate, no erythema, lips, buccal mucosa, and tongue normal and mucous membranes are moist EARS: TMs clear b/l NECK: supple, no nuchal rigidity, no adenopathy, non-tender CHEST: stable to compression anteriorly and posteriorly LUNGS: clear to auscultation. Normal chest wall mechanics HEART: no murmurs, S1 normal and S2 normal ABDOMEN: abdomen soft, non-tender, normo-active bowel sounds, no masses, no rebound or guarding. PELVIS: stable to compression anteriorly and posteriorly BACK: Back is symmetrical on inspection and there is no deformity, no midline tenderness, no CVA tenderness. UPPER EXTREMITIES: full active and passive range of motion of all joints without tenderness to palpation LOWER EXTREMITIES: full active and passive range of motion of all joints without tenderness to palpation NEURO EXAM: Alert, oriented, following commands, non-focal, moving all extremities, no weakness of the upper or lower extremities. Medical Decision & Procedures ER Provider Diagnostic Interpretation: Radiology results as stated below per my review and the radiologist's interpretation: R KNEE 3 VIEWS FINDINGS: There is moderate lateral patellar tilt. No acute fracture is identified. There is moderate medial compartment joint space narrowing as well is moderate to marked narrowing of the lateral aspect of the patellofemoral compartment. There is chondrocalcinosis within the menisci. IMPRESSION: 1. No acute fracture or joint effusion the right knee. 2. Moderate to severe osteoarthritis of the right knee, most pronounced within the medial and patellofemoral compartments. Electronically signed by: Chandrakant Velasquez M.D. 03/29/2017 10:42 PM Dictated Date/Time: 03/29/2017 10:40 PM L KNEE 3 VIEWS FINDINGS: Alignment of the left knee is in anatomic with the exception of a lateral patellar tilt and marked narrowing of the lateral aspect of the patellofemoral compartment. There is chondrocalcinosis within the medial meniscus. No acute fracture or joint effusion is identified. IMPRESSION: 1. No acute fracture or joint effusion of the left knee. 2. Lateral patellar tilt with marked narrowing of the lateral patellofemoral compartment. Electronically signed by: Chandrakant Velasquez M.D. 03/29/2017 10:43 PM Dictated Date/Time: 03/29/2017 10:[address] OF THE HEAD WITHOUT CONTRAST FINDINGS: No acute intracranial hemorrhage, midline shift or mass effect is present. Ventricular system is stable. Basilar cisterns are patent. There are no extra-axial collections. White matter hypodensity suggests small vessel disease. There are no findings to suggest acute dural sinus thrombosis or acute territorial infarct. Sensitivity for detection of calvarial fractures is diminished given mild motion artifact. However, no displaced calvarial fractures are identified. IMPRESSION: 1. No acute intracranial findings. 2. No calvarial fractures identified. Electronically signed by: Chandrakant Velasquez M.D. 03/29/2017 10:27 PM Dictated Date/Time: 03/29/2017 10:23 PM ED Course ED COURSE: Vital signs were reviewed and showed hypertension The patients medical record was reviewed The above diagnostic studies were performed and reviewed. ED treatments and interventions as stated above. 2145: The patient was evaluated in room B9. A complete history and physical examination was performed. 5: I reevaluated and updated the patient. 2314: Upon reevaluation, the patient is doing well.I discussed my findings with the patient's and they understands and agrees with the treatment plan. Based on the patients age, coexisting illnesses, exam and lab findings the decision to treat as an outpatient was made. The patient remained stable while under my care. The patient appeared well at the time of discharge. Medical Decision Differential diagnosis: Etiologies such as fracture, dislocation, neurovascular compromise, compartment syndrome, soft tissue injury, as well as others were entertained. Patient is an 81-year-old male with dementia that presents with following a mechanical fall. Patient was complaining of bilateral knee pains. She is uncertain whether he hit his head. He is currently complaining of nothing. X- rays of the knees were negative. CT head was negative. Patient and were updated in regards to his findings. Patient was discharged well-appearing follow-up with PCP. He did ambulate prior to discharge with nursing staff. Discussed with concerning signs and symptoms to watch out for. was instructed to follow up with their PCP and discussed with the their option to return to the ED at anytime for persistent or worsening symptoms. The appropriate anticipatory guidance and out-patient management, including indications for return to the emergency department, were explained at length to the and understood. Medication Reconcilliation Current Medication List: was personally reviewed by me Blood Pressure Screening Patient's blood pressure: Elevated blood pressure Blood pressure disposition: Elevated BP felt to be situational Impression Primary Impression: Contusion of knee Additional Impression: Fall Scribe Attestation The scribe's documentation has been prepared under my direction and personally reviewed by me in its entirety. I confirm that the note above accurately reflects all work, treatment, procedures, and medical decision making performed by me. Departure Information Dispostion Home / Self-Care Referrals Dino Brandon M.D. (PCP) Forms HOME CARE DOCUMENTATION FORM, IMPORTANT VISIT INFORMATION Patient Instructions ED Contusion Lower Ext, ED Contusion Soft Tissue, My [facility] Additional Instructions Please follow up with your primary care doctor with in the next 24 hours. Any worsening of your symptoms, please return to the ED immediately. This includes any fevers greater than 100.4, worsening pain, chest pain, shortness breath, persistent nausea, vomiting, unable to eat or drink, or any other concerning signs or symptoms from your standpoint. Problem Qualifiers Primary Impression: Contusion of knee Encounter type: initial encounter Laterality: unspecified laterality Qualified Codes: S80.00XA - Contusion of unspecified knee, initial encounter Additional Impression: Fall Encounter type: initial encounter Qualified Codes: W19.XXXA - Unspecified fall, initial encounter
== END 2017-03-29 23:31 | disposition home or self-care (01) ==
LOC: EDBD 21:28 → C.EDB 21:30
DX: S80.01XA Contusion of right knee, initial encounter (principal); S80.02XA Contusion of left knee, initial encounter; W01.0XXA Fall on same level from slipping, tripping and stumbling without subsequent striking against object, initial encounter; Y92.019 Unspecified place in single-family (private) house as the place of occurrence of the external cause; G20 Parkinson's disease; F02.80 Dementia in other diseases classified elsewhere, unspecified severity, without behavioral disturbance, psychotic disturbance, mood disturbance, and anxiety; I25.10 Atherosclerotic heart disease of native coronary artery without angina pectoris; Z85.46 Personal history of malignant neoplasm of prostate; I25.2 Old myocardial infarction; Z87.01 Personal history of pneumonia (recurrent); Z79.82 Long term (current) use of aspirin; Z79.899 Other long term (current) drug therapy

== ENCOUNTER 2017-04-18 00:19 | Emergency (ER) | payer OTHER ==
[~2017-04-18] VITALS: Ht 182.9 cm; Wt 101.0 kg
[2017-04-18 00:19] VITALS: TEMP 36.6; Ht 182.9 cm; Wt 101.0 kg
--- NOTE | 2017-04-18 00:42 | EMERGENCY ROOM VISIT NOTE ---
History Report prepared by Scribe: Sarah Barksdale Under the Supervision of: Dr. Vijay Garcia D.O. First contact with patient: 00:23 Chief Complaint: FALL Stated Complaint: FALL/NECK PAIN/SHOULDER PAIN History of Present Illness The patient is an 81 year old male who presents to the Emergency Room with complaints of a fall that occurred prior to arrival. Nursing reports he had a fall at home this evening, and family called for a lift assist. EMS came and helped him get up, and the patient denied any complaints or injuries, so they left. EMS was then called a second time as the patient complained of "head, neck and bilateral shoulder pain". The patient currently complains of neck pain here in the ED, but family notes he has a history of Parkinson's and dementia. His states she witnessed him fall into a laundry basket this evening, and hit his head during the fall. She does not believe he lost consciousness. 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 A total of ten systems were reviewed and were otherwise negative. Past Medical & Surgical Medical Problems: (1) Cardiac catheterization (2) Coronary Atherosclerosis Of [place] Coronary Vessel (3) Heart disease (4) Hx-Prostatic Malignancy (5) Hypertension Nos (6) Malignant melanoma (7) Old Myocardial Infarct (8) Pneumonia, Organism Nos (9) tia Family History Patient reports no known family medical history. Social History Smoking Status: Never Smoker Alcohol Use: none Drug Use: none Marital Status: Housing Status: lives with family Occupation Status: retired Current/Historical Medications Scheduled Ascorbic Acid (Vitamin C), 500 MG PO QAM Aspirin (Aspirin Chewable), 81 MG PO QAM Calcium Carbonate-Cholecalcife (Caltrate 600+D), 1 TAB PO QAM Carbidopa/Levodopa (Sinemet 25MG/100MG), 0.5 TAB PO BID Cholecalciferol (Vitamin D3), 1,000 UNITS PO QAM Cyclosporine (Ophth) (Restasis), 1 DROP OPB QAM Furosemide (Lasix), 40 MG PO Q2D Isosorbide Mononitrate (Isosorbide Mononitrate ER), 30 MG PO QAM Metoprolol Succ (Toprol Xl) (Toprol-Xl), 12.5 MG PO QAM Multiple Vitamins W/ Minerals (Centrum Silver Adult 50+), 1 TAB PO QAM Pantoprazole (Protonix), 40 MG PO QAM Polyethylene Glycol 3350 (Miralax), 17 GM PO DAILY Potassium Chloride (K-Tab), 1 TAB PO Q2D Rivastigmine Tartrate (Rivastigmine Tartrate), 6 MG PO QAM Sertraline HCl (Sertraline HCl), 100 MG PO HS Simvastatin (Zocor), 20 MG PO QPM Scheduled PRN Nitroglycerin (Nitrostat), 0.4 MG UT UD PRN for Chest Pain Tramadol (Ultram), 25 MG PO Q4H PRN for Pain Allergies Coded Allergies: Gabapentin (Verified Adverse Reaction, Severe, HALLUCINATIONS-DOUBLE VISION, 03/29/17) Physical Exam Vital Signs Date Time Temp Pulse Resp B/P (MAP) Pulse Ox O2 Delivery O2 Flow Rate FiO2 04/18/17 01:30 54 18 158/85 96 Room Air 04/18/17 00:19 36.6 59 16 175/80 96 Room Air Physical Exam GENERAL: Awake, alert, well-appearing, in no distress HENT: Normocephalic, atraumatic. Oropharynx unremarkable. EYES: Normal conjunctiva. Sclera non-icteric. NECK: Supple. No nuchal rigidity. FROM. No JVD. RESPIRATORY: Clear to auscultation. CARDIAC: Regular rate, normal rhythm. Extremities warm and well perfused. Pulses equal. ABDOMEN: Soft, non-distended. No tenderness to palpation. No rebound or guarding. No masses. RECTAL: Deferred. MUSCULOSKELETAL: Chest examination reveals no tenderness. The back is symmetrical on inspection without obvious abnormality. There is no CVA tenderness to palpation. No joint edema. LOWER EXTREMITIES: Calves are equal size bilaterally and non-tender. No edema. No discoloration. NEURO: Patient is confused. No sensory or motor deficits noted. SKIN: No rash or jaundice noted. Medical Decision & Procedures ER Provider Diagnostic Interpretation: X ray results as stated below per my interpretation and radiologist interpretation. Other radiology results as stated below per my review and radiologist interpretation CT HEAD No ICH, mass effect or edema. Curiel-white matter differentiation is preserved. No skull fracture. Visualized sinuses and mastoid air cells are clear. Radiologist: Dr. Varsha Egan MD CT C SPINE Comparison: CT Cervical spine 02/10/17. Straightening of the cervical spine with multilevel degenerative changes. No evidence of acute fracture or subluxation. Radiologist: Dr. Varsha Egan MD ED Course 0028: The patient was evaluated in room B4B. A complete history and physical exam was performed. 0130: I reevaluated the patient. He is feeling well and resting comfortably. I discussed his results and discharge instructions and his verbalized complete understanding and agreement. Medical Decision The differential diagnoses considered include sprain, strain, contusion, fracture and intracranial hemorrhage. Patient on repeat examination at 1:40 AM is resting in no distress. I discussed evaluation in the CAT scan results with the patient and the patient's at bedside. Patient is stable for discharge and states that she will follow-up with primary care physician Medication Reconcilliation Current Medication List: was personally reviewed by me Blood Pressure Screening Patient's blood pressure: Elevated blood pressure Blood pressure disposition: Referred to PCP Impression Primary Impression: Cervical strain Scribe Attestation The scribe's documentation has been prepared under my direction and personally reviewed by me in its entirety. I confirm that the note above accurately reflects all work, treatment, procedures, and medical decision making performed by me. Departure Information Dispostion Home / Self-Care Referrals Dino Brandon M.D. (PCP) Patient Instructions Cervical [place], My [facility]
[2017-04-18 01:30] VITALS: BP 158/85; PULSE 54; O2SAT 96
--- NOTE | 2017-04-18 07:10 | DIAGNOSTIC IMAGING REPORT ---
CT SCAN OF THE CERVICAL SPINE CLINICAL HISTORY: Fall with neck pain. COMPARISON STUDY: CT scan of the cervical spine dated 02/12/2017. TECHNIQUE: CT scan of the cervical spine is performed from the skull base to the upper thoracic spine. Images are reviewed in the axial, sagittal, and coronal planes. IV contrast was not administered for this examination. A dose lowering technique was utilized adhering to the principles of ALARA. CT DOSE: 1180.54 mGy.cm FINDINGS: Skeletal structures: The skeletal structures are heterogeneously osteopenic. There is no evidence of fracture or subluxation involving the cervical spine. Vertebral body height is maintained. There is mild anterolisthesis at C3-C4. Alignment is otherwise preserved. Anterior osteophytes are seen in the lower cervical spine. The odontoid process and lateral masses are intact. The atlantoaxial articulation is preserved noting productive degenerative change. The spinous processes appear intact. There is moderate multilevel cervical spondylosis. Uncovertebral and facet arthropathy contribute to neural foraminal stenosis at several levels. Intervertebral discs: Moderate disc space narrowing is seen at C5-C6 and C6-C7. Remaining disc spaces appear maintained. Central canal: Large posterior disc osteophyte complexes at C5-C6 and C6-C7 likely contribute to acquired compromise of the central canal. Soft tissues: The prevertebral and paraspinous soft tissues are within normal limits. Calcification is noted in the nuchal ligament. Calvarium: The visualized calvarium at the skull base appears intact. Brain parenchyma: Partially visualized brain parenchyma the skull base is within normal limits. Sinuses and mastoids: The visualized paranasal sinuses are clear. The mastoid air cells are well pneumatized. Lung apices: Clear as visualized. IMPRESSION: 1. There is no evidence of fracture or subluxation involving the cervical spine. 2. Osteopenia and spondylotic change as above. Electronically signed by: Gaurav Gutierrez M.D. 04/18/2017 7:09 AM Dictated Date/Time: 04/18/2017 7:06 AM
--- NOTE | 2017-04-18 07:44 | DIAGNOSTIC IMAGING REPORT ---
CT SCAN OF THE BRAIN WITHOUT IV CONTRAST CLINICAL HISTORY: Fall. Headache. COMPARISON STUDY: CT of the brain dated 03/29/2017. TECHNIQUE: Unenhanced axial CT scan of the brain is performed from the vertex to the skull base. CT DOSE: Reported separately under the concurrently performed CT scan of the cervical spine. FINDINGS: Brain parenchyma: There are age-related involutional changes noting moderate subcortical and periventricular microangiopathic change. There is no hemorrhage, mass effect, or evidence of acute territorial ischemia by CT criteria. Curiel-white matter is preserved. No extra-axial fluid collection is seen. Ventricles, sulci, cisterns: Prominent secondary to involutional change. Intracranial vasculature: There is atherosclerotic calcification of the cavernous carotid and vertebral arteries. Calvarium: The skeletal structures are osteopenic. No depressed calvarial fracture is seen. Sinuses and mastoids: The visualized paranasal sinuses are clear. The mastoid air cells are well pneumatized. Orbits: The bony orbits are grossly intact. There are bilateral ocular lens implants. IMPRESSION: There is no hemorrhage, mass effect, or evidence of acute territorial ischemia by CT criteria. Electronically signed by: Gaurav Gutierrez M.D. 04/18/2017 7:42 AM Dictated Date/Time: 04/18/2017 7:40 AM
== END 2017-04-18 01:43 | disposition home or self-care (01) ==
LOC: EDBD 00:19 → C.EDB 00:22
DX: S16.1XXA Strain of muscle, fascia and tendon at neck level, initial encounter (principal); R51 Headache; M54.2 Cervicalgia; M25.511 Pain in right shoulder; M25.512 Pain in left shoulder; W19.XXXA Unspecified fall, initial encounter; I25.10 Atherosclerotic heart disease of native coronary artery without angina pectoris; I10 Essential (primary) hypertension; I25.2 Old myocardial infarction; Z79.82 Long term (current) use of aspirin; Z79.899 Other long term (current) drug therapy; Z85.46 Personal history of malignant neoplasm of prostate; Z85.820 Personal history of malignant melanoma of skin; Z86.73 Personal history of transient ischemic attack (TIA), and cerebral infarction without residual deficits; Z87.01 Personal history of pneumonia (recurrent)

== ENCOUNTER → 2017-05-14 | Outpatient (CLI) | payer OTHER ==
[~2017-05-14] MED LIST changes: -CARB25TA12 PO; +MULTTAB PO; +SERT50TA PO; +SULF800T23 PO
--- NOTE | 2017-05-14 11:45 | DIAGNOSTIC IMAGING REPORT ---
RIGHT KNEE 4 VIEWS; LEFT KNEE 4 VIEWS CLINICAL HISTORY: Bilateral knee pain. COMPARISON STUDY: Radiographs of the left knee dated 03/29/2017. Radiographs of both knees dated 04/05/2015. FINDINGS: An AP stage of both knees, a sunrise view of both knees, a tunnel view of both knees, with crosstable lateral views of the right and left knee are obtained. No fracture is identified. Right knee: There is moderate tricompartmental degenerative joint space narrowing, greatest at the patellofemoral articulation. There is mild lateral subluxation of the patella. No osteochondral defect is seen on the tunnel image. There are large patellar enthesophytes as well as marginal osteophytes. No significant joint effusion is identified. A calcified fabella is incidentally noted. Patellar soft tissue edema is noted. There is advanced atherosclerotic calcification of the popliteal artery. Left knee: There is moderate tricompartmental degenerative joint space narrowing, greatest in the lateral and patellofemoral compartments. There is mild lateral subluxation of the patella. No osteochondral defect is seen on the tunnel image. There are large patellar enthesophytes as well as marginal osteophytes. No significant joint effusion is identified. A calcified fabella is incidentally noted. Patellar soft tissue edema is noted. There is advanced atherosclerotic calcification of the popliteal artery. IMPRESSION: 1. Soft tissue swelling with no acute bony abnormality identified in either knee. 2. Osteopenia and arthritic change as above. This is similar to modestly progressed from prior examinations. Electronically signed by: Gaurav Gutierrez M.D. 05/14/2017 11:44 AM Dictated Date/Time: 05/14/2017 11:41 AM
== END | disposition home or self-care (01) ==
LOC: EDBD → C.RDSM 11:24
PROVIDERS: ATTEND Physician Assistant
DX: M25.561 Pain in right knee (principal); M25.562 Pain in left knee; M85.869 Other specified disorders of bone density and structure, unspecified lower leg

== ENCOUNTER → 2017-05-26 | Day surgery (SDC) | payer OTHER ==
[2017-04-29 10:05] VITALS: Ht 180.3 cm; Wt 95.0 kg
[~2017-05-26] VITALS: Ht 180.3 cm; Wt 95.0 kg
[~2017-05-26] MED LIST changes: +ATROPINE SULFATE 0.1 MG/ML 5ML SYR IV PRN; +BUPIVACAINE 0.25% 2.5MG/ML PF 10 ML VIAL ONE; +EpHEDrine SULFATE INJ 50 MG/ML AMP IV PRN; +FENTANYL CITRATE INJ 50 MCG/1 ML 2 ML VIAL IV PRN; +FENTANYL CITRATE INJ 50 MCG/1 ML 2 ML VIAL ONE; +LACTATED RINGER'S 1000ML 1,000 ML IV SCH; +LIDOCAINE HCL 1% 20 ML VIAL ONE; +LIDOCAINE HCL 2% 2 ML VIAL (20MG/ML) ONE; +LIDOCAINE MPF 1% INJ 30 ML SDV (L&D) INFIL ONE; +MIDAZOLAM HCL 1 MG/ML 2ML VIAL ONE; -MULTTAB PO; +ONDANSETRON INJ 2 MG/ML 2 ML VIAL IV PRN; +PROPOFOL IV EMULSION 10 MG/ML 20 ML VIAL IV ONE; -SERT50TA PO; -SULF800T23 PO
--- NOTE | 2017-05-26 07:54 | History and Physical: Surg Cnt ---
History & Physical Date May 26, 2017. Chief Complaint Low back pain History of Present Illness Patient presents for bilateral SI RFD secondary to sacral pain and history of lumbar fusions Past Medical/Surgical History Hx lumbar surgeries x4 Additional History Hepatic Disease: No Endocrine Disorder: No Kidney Disease: No Hypertension: Yes Heart Disease: Yes Bleeding Tendencies: No Allergies Coded Allergies: Gabapentin (Verified Adverse Reaction, Severe, HALLUCINATIONS-DOUBLE VISION, 05/26/17) Home Medications Scheduled Ascorbic Acid (Vitamin C), 500 MG PO QAM Aspirin (Aspirin Chewable), 81 MG PO QAM Calcium Carbonate-Cholecalcife (Caltrate 600+D), 1 TAB PO QAM Cholecalciferol (Vitamin D3), 1,000 UNITS PO QAM Cyclosporine (Ophth) (Restasis), 1 DROP OPB QAM Furosemide (Lasix), 40 MG PO Q2D Isosorbide Mononitrate (Isosorbide Mononitrate ER), 30 MG PO QAM Metoprolol Succ (Toprol Xl) (Toprol-Xl), 12.5 MG PO QAM Multiple Vitamins W/ Minerals (Centrum Silver Adult 50+), 1 TAB PO QAM Pantoprazole (Protonix), 40 MG PO QAM Polyethylene Glycol 3350 (Miralax), 17 GM PO DAILY Potassium Chloride (K-Tab), 1 TAB PO Q2D Rivastigmine Tartrate (Rivastigmine Tartrate), 6 MG PO QAM Sertraline HCl (Sertraline HCl), 100 MG PO HS Simvastatin (Zocor), 20 MG PO QPM Scheduled PRN Nitroglycerin (Nitrostat), 0.4 MG UT UD PRN for Chest Pain Tramadol (Ultram), 25 MG PO Q4H PRN for Pain Social History Smoking Status: Never Smoker Alcohol Use: none ASA Classification: ASA Class II Operation Bilateral SI Cooled denervation
--- NOTE | 2017-05-26 09:37 | Discharge Instructions ---
Discharge Instructions Date of Service May 26, 2017. Visit Reason for Visit: Sacroiliitis Discharge Discharge Diagnosis / Problem: Low back pain Discharge Goals Goal(s): Decrease discomfort, Improve function Activity Recommendations Activity Limitations: resume your previous activity Anesthesia . Post Anesthesia Instructions: If you have had General Anesthesia or IV Sedation: * Do not drive today. * Resume driving when surgeon permits. * Do not make important decisions or sign legal documents today. * Call surgeon for: 1. Temperature elevations greater than 101 degrees F. 2. Uncontrollable pain. 3. Excessive bleeding. 4. Persistent nausea and vomiting. 5. Medication intolerance (nausea, vomiting or rash). * For nausea and vomiting use only clear liquids such as: tea, soda, bouillon until nausea subsides, then gradually increase diet as tolerated. * If you have any concerns or questions, call your surgeon's office. If physician is unavailable and it is an emergency, call 911 or go to the nearest emergency room. . Diet Recommendations Recommended Home Diet: resume previous diet Procedures Procedures Performed: Bilateral Sacroiliac Joint Cooled Radio Frequency [place] Pending Studies Studies pending at discharge: no Medical Emergencies . Who to Call and When: Medical Emergencies: If at any time you feel your situation is an emergency, please call 911 immediately. . Non-Emergent Contact Non-Emergency issues call your: Specialist . . "Provider Documentation" section prepared by Jed Wallace. .
--- NOTE | 2017-05-26 09:51 | OPERATIVE REPORT ---
DATE OF OPERATION: 05/26/2017 PREOPERATIVE DIAGNOSIS: Bilateral sacroiliitis, history of an L2 through S1 fusion. POSTOPERATIVE DIAGNOSIS: Same. PROCEDURE: Bilateral radiofrequency cooled denervation of the SI joints. INDICATIONS: The patient is an 81-year-old white male who has had successful SI joint injections in the past. These have provided him with weeks and months of relief. He presents today for a denervation procedure to provide him longer lasting relief upwards of 10 months to a year. PHYSICAL EXAMINATION: Pleasant male seated comfortably. He is very tender to palpation over the SI joints bilaterally, sciatic notches are nontender. He has no focal weakness. CONSENT: Verbal and written consent was obtained from the patient. Risks and benefits were reviewed. Risks include but are not limited to abscess, allergic reaction and denervation transient or potentially increase her pain, wishes to proceed. DESCRIPTION OF PROCEDURE: The patient was taken back into OR one of the [facility] where he was maintained in a prone position. He had conscious sedation throughout the procedure but was able to fairly converse. The backside was cleansed with Betadine x3 and a dry sterile dressing was applied. Fluoroscope was used to identify the left sacral bone and then the skin overlying the lateral S1 foramen was anesthetized with 5 mL of lidocaine 1% with a 25 gauge 1.5-inch needle. He then underwent placement of the denervation needle with target being the following targets and cooled denervation was done at each target for 2 minutes and 30 seconds. Initial target was the sacral ala, the lateral superior S1 foramen, the lateral S1 foramen, the lateral inferior S1 foramen, the lateral inferior S1 foramen, the lateral superior S2 foramen, the lateral S2 foramen, the lateral inferior S2 foramen and the lateral S3 foramen region just on the bone outlining the actual foramen. The level procedure was done without problems or difficulties. He then underwent visualization of the right sacral bone and the overlying skin of S1 lateral foramen was anesthetized with 3.5 mL of lidocaine 1%. The needle was placed, denervation was done 2 minutes and 30 seconds at the following site; right sacral ala, the right superior S1 lateral region, the right lateral S1 bony region, the right inferior lateral S1 bony region, the right superior lateral S2 bony region, the right lateral S2 bony region, the right inferior lateral S2 region and the right superior lateral S3 region. The procedure was well done. DISPOSITION: The patient was taken out into the discharge recovery area where he will be discharged home once discharge criteria have been met. He will follow up in the [facility] office in 4 weeks' time. I attest to the content of the Intraoperative Record and any orders documented therein. Any exception s are noted below.
[2017-05-26 10:16] VITALS: BP 129/75; PULSE 54; TEMP 36.6; O2SAT 95
--- NOTE | 2017-05-26 10:29 | Anesthesiology Progress Note ---
Anesthesia Post Op Note Date & Time May 26, 2017 at 10:29 Vital Signs Pain Intensity: 0 Vital Signs Past 12 Hours Date Time Temp Pulse Resp B/P (MAP) Pulse Ox O2 Delivery O2 Flow Rate FiO2 05/26/17 10:16 36.6 54 16 129/75 (93) 95 Room Air 05/26/17 09:35 36.3 56 16 139/76 (97) 95 Room Air 05/26/17 07:38 37.5 79 20 122/78 (93) 92 Room Air Notes Mental Status: alert / awake / arousable, participated in evaluation Nausea / Vomiting: adequately controlled Pain: adequately controlled Airway Patency, RR, SpO2: stable & adequate BP & HR: stable & adequate Hydration State: stable & adequate Anesthetic Complications: no major complications apparent
== END | disposition home or self-care (01) ==
LOC: X.SURG 06:58
PROVIDERS: ATTEND Physical Medicine & Rehabilitation
DX: M46.1 Sacroiliitis, not elsewhere classified (principal); Z98.1 Arthrodesis status; I10 Essential (primary) hypertension; F03.90 Unspecified dementia, unspecified severity, without behavioral disturbance, psychotic disturbance, mood disturbance, and anxiety; G20 Parkinson's disease; I25.2 Old myocardial infarction; Z86.73 Personal history of transient ischemic attack (TIA), and cerebral infarction without residual deficits; Z90.89 Acquired absence of other organs; Z79.82 Long term (current) use of aspirin

== ENCOUNTER → 2017-06-21 | Outpatient (CLI) | payer OTHER ==
[~2017-06-21] MED LIST changes: -ATROPINE SULFATE 0.1 MG/ML 5ML SYR IV PRN; -BUPIVACAINE 0.25% 2.5MG/ML PF 10 ML VIAL ONE; -EpHEDrine SULFATE INJ 50 MG/ML AMP IV PRN; -FENTANYL CITRATE INJ 50 MCG/1 ML 2 ML VIAL IV PRN; -FENTANYL CITRATE INJ 50 MCG/1 ML 2 ML VIAL ONE; -LACTATED RINGER'S 1000ML 1,000 ML IV SCH; -LIDOCAINE HCL 1% 20 ML VIAL ONE; -LIDOCAINE HCL 2% 2 ML VIAL (20MG/ML) ONE; -LIDOCAINE MPF 1% INJ 30 ML SDV (L&D) INFIL ONE; -MIDAZOLAM HCL 1 MG/ML 2ML VIAL ONE; -ONDANSETRON INJ 2 MG/ML 2 ML VIAL IV PRN; -PROPOFOL IV EMULSION 10 MG/ML 20 ML VIAL IV ONE
== END | disposition home or self-care (01) ==
LOC: C.LABSPEC 17:02
PROVIDERS: ATTEND Nurse Practitioner Adult Health
DX: N39.41 Urge incontinence (principal)

== ENCOUNTER → 2017-06-22 | Outpatient (CLI) | payer OTHER ==
--- NOTE | 2017-06-22 09:46 | DIAGNOSTIC IMAGING REPORT ---
(CHEST) THORAX WITHOUT CLINICAL HISTORY: 81 years-old Male presenting with R91.1 Solitary pulmonary nodule. TECHNIQUE: Multidetector CT imaging of the chest was performed without the use of intravenous contrast. IV contrast: None. A dose lowering technique was used consistent with the principles of ALARA (as low as reasonably achievable). COMPARISON: 02/12/2017. CT DOSE (mGy.cm): The estimated cumulative dose is 910.28 mGy.cm. FINDINGS: Chip Person topogram: Right shoulder arthroplasty. On soft tissue windows, dominant thyroid nodule may be present in the right lobe. No axillary, supraclavicular, or mediastinal lymphadenopathy. Evaluation of the christelle limited without intravenous contrast. Atherosclerosis of the aorta. Mild multichamber enlargement of the heart. Coronary artery calcification. No pericardial or pleural effusion. Upper abdomen normal. On lung windows, minimal dependent changes likely atelectasis. Minimal dependent punctate calcifications also noted greater on the right. Peripheral/subpleural solid 1.8 cm nodule in the lateral basal left lower lobe (series 4 image 192), previously 1.4 cm when remeasured at a comparable level. No new nodule. Airways patent. On bone windows, degenerative changes of the spine. Postsurgical changes of right shoulder arthroplasty. Old rib fracture of the anterior left fourth rib suspected. Heterogeneity of bone marrow. IMPRESSION: 1. Slight interval increase in size of the solid peripheral/subpleural left lower lobe nodule. This remains suspicious for primary bronchogenic neoplasm. This would likely be amenable to CT-guided biopsy if biopsy has not yet been performed. 2. No new pulmonary nodule. 3. Heterogeneity of bone marrow. Correlate for underlying malignancy, including PSA, or possible renal disease. The report will be called/faxed according to standard departmental protocol. Please refer to below summary of Fleischner Society 2017 recommendations for follow-up of incidental CT nodules (H Starr et al. Guidelines for management of incidental pulmonary nodules detected on CT images: From the Fleischner Society 2017. Radiology 2017; 284: 228-243.) SOLID NODULES Single nodule; size < 6 mm * Low risk patients: No routine follow-up * High risk patients: Optional CT at 12 months Single nodule; size 6-8 mm * Low risk patients: CT at 6-12 months, then consider CT at 18-24 months * High risk patients: CT at 6-12 months, then at 18-24 months Single nodule; size > 8 mm * Either low or high risk patients: Considered CT at 3 months, PET/CT, or tissue sampling Multiple nodules; size < 6 mm * Low risk patients: No routine follow up * High risk patients: Optional CT at 12 months Multiple nodules; size 6-8 mm * Low risk patients: CT at 3-6 months, then consider CT at 18-24 months * High risk patients: CT at 3-6 months, then at 18-24 months Multiple nodules; size > 8 mm * Low risk patients: CT at 3-6 months, then consider at 18-24 months * High risk patients: CT at 3-6 months, then at 18-24 months Note: These guidelines apply to incidental nodules. These guidelines do not apply to patients younger than 35 years, immunocompromised patients, or patients with cancer. * Low risk patients: Minimal or absent history of smoking and/or other known risk factors * High risk patients: History of smoking, exposure to other carcinogens, emphysema, fibrosis, upper lobe location, family history of lung cancer, etc. * If a nodule up to 8 mm is partly solid or is ground glass, further follow-up is required after 24 months to exclude possible slow growing adenocarcinoma. SUBSOLID NODULES Single ground-glass nodule * Nodule size < 6 mm: No routine follow-up * Nodule size > or = 6 mm: CT at 6-12 months to confirm persistence, then CT every 2 years until 5 years Single part-solid nodule * Nodule size < 6 mm: No routine follow-up * Nodules size > or = 6 mm: CT at 3-6 months to confirm persistence. If unchanged and solid component remains < 6 mm, annual CT should be performed for 5 years Multiple nodules * Nodule size < 6 mm: CT at 3-6 months. If stable, consider CT at 2 and 4 years. * Nodules size > or = 6 mm: CT at 3-6 months. Subsequent management based on the most suspicious nodule(s) Electronically signed by: Jam Carlson M.D. 06/22/2017 9:45 AM Dictated Date/Time: 06/22/2017 9:39 AM
== END | disposition home or self-care (01) ==
LOC: C.CTS 09:16
PROVIDERS: ATTEND Internal Medicine Pulmonary Disease
DX: R91.1 Solitary pulmonary nodule (principal)

== ENCOUNTER 2017-07-26 21:06 | Emergency (ER) | payer OTHER ==
[~2017-07-26] VITALS: Ht 177.8 cm; Wt 97.7 kg
[2017-07-26 21:12] VITALS: TEMP 36.9; Ht 177.8 cm; Wt 97.7 kg
--- NOTE | 2017-07-26 22:22 | DIAGNOSTIC IMAGING REPORT ---
HEAD CT NONCONTRAST CT DOSE: 537.48 mGy.cm HISTORY: fall TECHNIQUE: Multiaxial CT images of the head were performed without the use of intravenous contrast. Automated exposure control was utilized for this study. A dose lowering technique was utilized adhering to the principles of ALARA. Comparison: Head CT 04/18/2017. Findings: The paranasal sinuses and mastoid air cells are clear. The calvarium and skull base are intact. There is no mass, hematoma, midline shift, acute infarct. White matter hypodensity is nonspecific but suggestive of microvascular ischemic change. The ventricles and sulci demonstrate mild age-related involutional changes. Mild right posterior scalp swelling with a few skin lexi. Impression: No acute intracranial abnormality. Atrophy and microvascular ischemic changes. Right posterior scalp injury. Electronically signed by: Tip Kunz M.D. 07/26/2017 10:21 PM Dictated Date/Time: 07/26/2017 10:13 PM
[2017-07-27 00:01] VITALS: BP 132/65
--- NOTE | 2017-07-27 00:08 | EMERGENCY ROOM VISIT NOTE ---
History Report prepared by Sue: Fiorella Maya Under the Supervision of: Dr. Abhishek Iniguez D.O. First contact with patient: 21:23 Chief Complaint: HEAD INJURY (MINOR) Stated Complaint: FALL, HEAD INJURY, LACERATION History of Present Illness The patient is an 81 year old male who presents to the Emergency Room with complaints of an episode of head injury [employer]. He presents to the ED by EMS. The patient was standing when he tripped and fell backwards into a door. He hit the back of his head. He did not lose consciousness. The patient's states that he did not respond at first after the fall, but quickly came back to baseline. He has no other injuries. The patient has a history of Parkinson's disease. His tetanus is up to date. Source of History: patient, spouse/significant other Onset: [employer] Position: head Quality: other (injury) Timing: other (episodic) Associated Symptoms: No LOC Review of Systems See HPI for pertinent positives & negatives. A total of 10 systems reviewed and were otherwise negative. Past Medical & Surgical Medical Problems: (1) Cardiac catheterization (2) Coronary Atherosclerosis Of [place] Coronary Vessel (3) Heart disease (4) Hx-Prostatic Malignancy (5) Hypertension Nos (6) Malignant melanoma (7) Old Myocardial Infarct (8) Pneumonia, Organism Nos (9) tia Family History Patient reports no known family medical history. Noncontributory secondary to age. Social History Smoking Status: Never Smoker Alcohol Use: none Drug Use: none Marital Status: Housing Status: lives with family Occupation Status: retired Current/Historical Medications Scheduled Ascorbic Acid (Vitamin C), 500 MG PO QAM Aspirin (Aspirin Chewable), 81 MG PO QAM Calcium Carbonate-Cholecalcife (Caltrate 600+D), 1 TAB PO QAM Cholecalciferol (Vitamin D3), 1,000 UNITS PO QAM Cyclosporine (Ophth) (Restasis), 1 DROP OPB QAM Furosemide (Lasix), 40 MG PO Q2D Isosorbide Mononitrate (Isosorbide Mononitrate ER), 30 MG PO QAM Metoprolol Succ (Toprol Xl) (Toprol-Xl), 12.5 MG PO QAM Multiple Vitamins W/ Minerals (Centrum Silver Adult 50+), 1 TAB PO QAM Pantoprazole (Protonix), 40 MG PO QAM Polyethylene Glycol 3350 (Miralax), 17 GM PO DAILY Potassium Chloride (K-Tab), 1 TAB PO Q2D Rivastigmine Tartrate (Rivastigmine Tartrate), 6 MG PO QAM Sertraline HCl (Sertraline HCl), 100 MG PO HS Simvastatin (Zocor), 20 MG PO QPM Scheduled PRN Nitroglycerin (Nitrostat), 0.4 MG UT UD PRN for Chest Pain Tramadol (Ultram), 25 MG PO Q4H PRN for Pain Allergies Coded Allergies: Gabapentin (Verified Adverse Reaction, Severe, HALLUCINATIONS-DOUBLE VISION, 05/26/17) Physical Exam Vital Signs Date Time Temp Pulse Resp B/P (MAP) Pulse Ox O2 Delivery O2 Flow Rate FiO2 07/27/17 00:09 83 16 93 Room Air 07/27/17 00:01 132/65 07/26/17 23:15 56 16 92 Room Air 07/26/17 23:11 54 16 115/92 93 Room Air 07/26/17 21:21 75 07/26/17 21:15 16 07/26/17 21:12 36.9 70 16 153/101 96 Room Air Physical Exam CONSTITUTIONAL/VITAL SIGNS: Reviewed / noted above. GENERAL: Non-toxic in appearance. INTEGUMENTARY: Warm, dry, and Cyrus. HEAD: 3 cm laceration to the right posterior head. Minimal bleeding on examination. EYES: without scleral icterus or trauma. ENT/OROPHARYNX: clear and moist. LYMPHADENOPATHY/NECK: Is supple without lymphadenopathy or meningismus. RESPIRATORY: Lungs clear and equal. CARDIOVASCULAR: Regular rate and rhythm. GI/ABDOMEN: Soft and nontender. No organomegaly or pulsatile mass. No rebound or guarding. Normal bowel sounds. EXTREMITIES: Warm and well perfused. BACK: No CVA tenderness. NEUROLOGICAL: Intact without focal deficits. PSYCHIATRIC: normal affect. MUSCULOSKELETAL: Normally developed with good muscle tone. Medical Decision & Procedures ER Provider Diagnostic Interpretation: Radiology results as stated below per my review and radiologist interpretation: HEAD CT NONCONTRAST CT DOSE: 537.48 mGy.cm HISTORY: fall TECHNIQUE: Multiaxial CT images of the head were performed without the use of intravenous contrast. Automated exposure control was utilized for this study. A dose lowering technique was utilized adhering to the principles of ALARA. Comparison: Head CT 04/18/2017. Findings: The paranasal sinuses and mastoid air cells are clear. The calvarium and skull base are intact. There is no mass, hematoma, midline shift, acute infarct. White matter hypodensity is nonspecific but suggestive of microvascular ischemic change. The ventricles and sulci demonstrate mild age-related involutional changes. Mild right posterior scalp swelling with a few skin lexi. Impression: No acute intracranial abnormality. Atrophy and microvascular ischemic changes. Right posterior scalp injury. Electronically signed by: Tip Kunz M.D. 07/26/2017 10:21 PM Dictated Date/Time: 07/26/2017 10:13 PM Procedure Location: Scalp Total length: 3 cm Complexity: Simple Verbal consent was obtained after the risks and benefits were explained, including but not limited to bleeding, scarring, infection, pain, and bone/ nerve damage. At this time, the risks of the procedure are less than the risks of NOT performing the procedure. A time out was taken and the correct patient and site identified. The scalp was prepped with betadine. Copious irrigation was performed using saline. The skin was re-prepped with betadine, the hair cleared from the wound, and a sterile field set. The wound was explored for foreign bodies and none found. Debridement was not performed. The wound edges were approximated using 2 surgical lexi in the standard fashion. Hemostasis and excellent approximation was achieved. Antibacterial ointment and a sterile dressing applied. Detailed wound care instructions and signs and symptoms of infection reviewed with the patient. No complications and the patient tolerated the procedure well. ED Course 2133: Previous medical records were reviewed. The patient was evaluated in room B9. A complete history and physical examination was performed. Laceration was repaired according to the procedure note above. 0009: On reevaluation, the patient is resting comfortably. I discussed the results and findings with the patient. He verbalized agreement of the treatment plan. He was discharged home. Medical Decision Differential includes close head injury, intracranial bleed, facial trauma, cervical spine trauma, chest and thoracic trauma, abdominal and intra-abdominal trauma, spine neurologic trauma, extremity trauma. This is a an 81-year-old male who presents to the ED with a chief complaint of a fall. The patient did not have a loss of consciousness. Further details listed above. The patient's exam reveals a 1 cm laceration to the posterior aspect of the head. There was minimal bleeding. This was stapled. CT scan of the brain did not show acute process. The patient was felt to be stable for discharge Head Trauma GCS Score: 15 Medication Reconcilliation Current Medication List: was personally reviewed by me Blood Pressure Screening Patient's blood pressure: Elevated blood pressure Blood pressure disposition: Elevated BP felt to be situational Impression Primary Impression: Closed head injury Additional Impression: Scalp laceration Scribe Attestation The scribe's documentation has been prepared under my direction and personally reviewed by me in its entirety. I confirm that the note above accurately reflects all work, treatment, procedures, and medical decision making performed by me. Departure Information Dispostion Home / Self-Care Referrals Dino Brandon M.D. (PCP) Patient Instructions My [facility] Additional Instructions Have lexi removed in about 10 days. Your family doctor can do this for you or you can return to the emergency department. Problem Qualifiers
[2017-07-27 00:09] VITALS: PULSE 83; O2SAT 93
== END 2017-07-27 00:12 | disposition home or self-care (01) ==
LOC: C.EDB 21:15
DX: S01.01XA Laceration without foreign body of scalp, initial encounter (principal); W01.198A Fall on same level from slipping, tripping and stumbling with subsequent striking against other object, initial encounter; I11.9 Hypertensive heart disease without heart failure; I25.10 Atherosclerotic heart disease of native coronary artery without angina pectoris; Z79.82 Long term (current) use of aspirin; I25.2 Old myocardial infarction; Z85.46 Personal history of malignant neoplasm of prostate; Z86.73 Personal history of transient ischemic attack (TIA), and cerebral infarction without residual deficits; Z87.01 Personal history of pneumonia (recurrent); Z85.820 Personal history of malignant melanoma of skin; Z88.8 Allergy status to other drugs, medicaments and biological substances

== ENCOUNTER → 2017-07-28 | Outpatient (CLI) | payer OTHER ==
--- NOTE | 2017-07-28 16:04 | DIAGNOSTIC IMAGING REPORT ---
CT OF THE HEAD WITHOUT CONTRAST CLINICAL HISTORY: CLOSED HEAD INJ W/O CONCUSSION,CONFUSION COMPARISON STUDY: Head CT July 26, 2017. CT DOSE: 614.27 mGy.cm TECHNIQUE: Helical axial images of the head were obtained without IV contrast. Automated exposure control was utilized for the study. A dose lowering technique was utilized adhering to the principles of ALARA. FINDINGS: No acute intracranial hemorrhage, midline shift or mass affect is present. Ventricular system is stable. Basilar cisterns are patent. There are no extra axial collections. White matter hypodensities are unchanged and suggest small vessel disease. There is extensive intracranial vascular calcification. A right posterior scalp contusion is noted. There is no calvarial fracture. IMPRESSION: 1. No acute intracranial findings. 2. Right posterior scalp contusion. No calvarial fracture. Electronically signed by: Chandrakant Velasquez M.D. 07/28/2017 4:02 PM Dictated Date/Time: 07/28/2017 4:00 PM
== END | disposition home or self-care (01) ==
LOC: C.CTS 15:37
PROVIDERS: ATTEND Psychiatry & Neurology Neurology
DX: S09.90XA Unspecified injury of head, initial encounter (principal); S00.03XA Contusion of scalp, initial encounter; R41.0 Disorientation, unspecified; X58.XXXA Exposure to other specified factors, initial encounter

== ENCOUNTER 2017-08-02 16:18 | Inpatient (IN) | payer OTHER ==
[~2017-08-02] VITALS: Ht 180.3 cm; Wt 79.1 kg
[2017-08-02] MEDS ORDERED: SODIUM CHLORIDE 0.9% 1000ML 1,000 ML IV STA (16:35)
[2017-08-02 16:48] LABS: BASO % 0.5 %; BASO ABS # 0.05 K/uL (0-0.2); EOS % 9.5 %; EOS ABS # 0.89 K/uL (0-0.5); HEMATOCRIT 49.5 % (42-52); HEMOGLOBIN 16.8 g/dL (14.0-18.0); IG# 0.03 K/uL (0.00-0.02); LYMPH % 27.2 %; LYMPH ABS # 2.55 K/uL (1.2-3.4); MEAN CELL VOLUME 87.1 fL (80-100); MEAN CORPUSCULAR HEMOGLOBIN 29.6 pg (25-34); MEAN CORPUSCULAR HGB CONC 33.9 g/dl (32-36); MEAN PLATELET VOLUME 9.7 fL (7.4-10.4); MONO ABS # 0.84 K/uL (0.11-0.59); NEUT % 53.5 %; PLATELET COUNT 222 K/uL (130-400); RED CELL DISTRIBUTION WIDTH CV 14.7 % (11.5-14.5); RED CELL DISTRIBUTION WIDTH SD 46.7 fL (36.4-46.3); WHITE BLOOD COUNT 9.36 K/uL (4.8-10.8)
[2017-08-02 16:57] LABS: PTT PATIENT 26.1 SECONDS (21.0-31.0)
[2017-08-02 17:06] LABS: ALBUMIN 3.6 gm/dl (3.4-5.0); ALT/SGPT 23 U/L (12-78); AST/SGOT 18 U/L (15-37); BLOOD UREA NITROGEN 21 mg/dl (7-18); CALCIUM 8.9 mg/dl (8.5-10.1); CARBON DIOXIDE 27 mmol/L (21-32); CREATININE 1.87 mg/dl (0.60-1.40); GLUCOSE 126 mg/dl (70-99); LIPASE 190 U/L (73-393); SODIUM 138 mmol/L (136-145)
--- NOTE | 2017-08-02 17:09 | DIAGNOSTIC IMAGING REPORT ---
CHEST ONE VIEW PORTABLE HISTORY: 81 years-old Male EVALUATE WEAKNESS acute weakness COMPARISON: Chest radiograph 02/12/2017, chest CT 06/22/2017 TECHNIQUE: Portable AP view of the chest FINDINGS: Cardiac mediastinal and hilar silhouettes are within normal limits. There is no pneumothorax, pleural effusion, focal airspace consolidation or overt pulmonary edema. Minimal subsegmental bibasilar atelectasis. The bones of the chest appear grossly intact. Degenerative changes are seen within the spine and left shoulder. Right shoulder arthroplasty. IMPRESSION: No acute process. The above report was generated using voice recognition software. It may contain grammatical, syntax or spelling errors. Electronically signed by: Sd Trinh M.D. 08/02/2017 5:08 PM Dictated Date/Time: 08/02/2017 5:06 PM
[2017-08-02 17:15] LABS: ALKALINE PHOSPHATASE 105 U/L (45-117); CKMB 1.2 ng/ml (0.5-3.6); TOTAL PROTEIN 7.5 gm/dl (6.4-8.2)
--- NOTE | 2017-08-02 17:46 | DIAGNOSTIC IMAGING REPORT ---
HEAD WITHOUT CONTRAST (CT) CLINICAL HISTORY: 81 years-old Male with acute change in mental status. Recent head injury.. Acute altered mental status TECHNIQUE: Multiple axial CT images of the head were obtained without contrast. A dose lowering technique was utilized adhering to the principles of ALARA. CT DOSE: 638.56 mGycm COMPARISON: CT head 07/28/2017. FINDINGS: No acute intracranial hemorrhage, midline shift, intracranial mass, hydrocephalus, territorial ischemia or abnormal extra-axial collection. Moderate atrophy and ex vacuo tracheomegaly with chronic microvascular ischemic changes. Cerebral vascular calcifications are again seen at the level of the skull base. The calvarium is intact. The mastoid air cells, and middle ear cavities are clear. Mild mucosal thickening of the visualized ethmoid air cells. Soft tissues and orbits are unremarkable. IMPRESSION: No acute intracranial abnormality. The above report was generated using voice recognition software. It may contain grammatical, syntax or spelling errors. Electronically signed by: Sd Trinh M.D. 08/02/2017 5:44 PM Dictated Date/Time: 08/02/2017 5:42 PM
[2017-08-02] MEDS ORDERED: POLYETHYLENE (MIRALAX) 17 GM PACK PO PRN (19:30)
[2017-08-02] MEDS ORDERED: NITROGLYCERIN 0.4 MG SL PER TAB CHARGE SL PRN (19:30)
[2017-08-02] MEDS ORDERED: ONDANSETRON INJ 2 MG/ML 2 ML VIAL IV PRN (19:30)
[2017-08-02] MEDS ORDERED: ACETAMINOPHEN 325 MG TAB PO PRN (19:30)
[2017-08-02] MEDS ORDERED: MAGNESIUM HYDROXIDE SUSP 30 ML UDC PO PRN (19:30)
--- NOTE | 2017-08-02 19:35 | EMERGENCY ROOM VISIT NOTE ---
History Report prepared by Sue: Carlos Dey Under the Supervision of: Dr. Jose Brandon M.D. First contact with patient: 16:26 Chief Complaint: REFERRED BY DOCTOR Stated Complaint: FALL,POSSIBLE CONCUSION History of Present Illness The patient is an 81 year old male who presents to the Emergency Room with complaints of a sudden fall occurring a week ago. The patient's states that he has had lexi in his head, and he has had two CT scans since he was not acting normally. The patient has been weak and confused since last night more than usual, and he was seen at his PCP this morning, and he was told to come to the ED. The patient has been unable to stand on his own, and he could not get from the chair to a table. He is currently on aspirin though no other blood thinners. The patient has a history of Parkinson's. Pt denies LOC, headache, fevers, chills, diaphoresis, visual changes, neck pain, chest pain, breathing difficulties, nausea, vomiting, abdominal pain, back pain, melena, hematochezia, urinary symptoms, numbness, weakness, lymphadenopathy, rash, or other complaints. Source of History: patient, spouse/significant other Onset: a week ago Position: other (global) Quality: other (fall) Timing: other (sudden) Associated Symptoms: + weakness, No headache, No neck pain Note: Associated symptoms: confusion Review of Systems See HPI for pertinent positives and negatives. A total of ten systems were reviewed and were otherwise negative. Past Medical & Surgical Medical Problems: (1) Abnormal ECG (2) Cardiac catheterization (3) Coronary Atherosclerosis Of [place] Coronary Vessel (4) Encephalopathy (5) Heart disease (6) Hx-Prostatic Malignancy (7) Hypertension Nos (8) Malignant melanoma (9) Old Myocardial Infarct (10) Pneumonia, Organism Nos (11) tia Family History Patient reports no known family medical history. Social History Smoking Status: Never Smoker Alcohol Use: none Drug Use: none Marital Status: Housing Status: lives with family Occupation Status: retired Current/Historical Medications Scheduled Ascorbic Acid (Vitamin C), 500 MG PO QAM Aspirin (Aspirin Chewable), 81 MG PO QAM Calcium Carbonate-Cholecalcife (Caltrate 600+D), 1 TAB PO QAM Cholecalciferol (Vitamin D3), 1,000 UNITS PO QAM Cyclosporine (Ophth) (Restasis), 1 DROP OPB QAM Furosemide (Lasix), 40 MG PO Q2D Isosorbide Mononitrate (Isosorbide Mononitrate ER), 30 MG PO QAM Metoprolol Succ (Toprol Xl) (Toprol-Xl), 12.5 MG PO QAM Multiple Vitamins W/ Minerals (Centrum Silver Adult 50+), 1 TAB PO QAM Pantoprazole (Protonix), 40 MG PO QAM Polyethylene Glycol 3350 (Miralax), 17 GM PO DAILY Potassium Chloride (K-Tab), 1 TAB PO Q2D Rivastigmine Tartrate (Rivastigmine Tartrate), 6 MG PO QAM Sertraline HCl (Sertraline HCl), 150 MG PO HS Simvastatin (Zocor), 20 MG PO QPM Scheduled PRN Nitroglycerin (Nitrostat), 0.4 MG UT UD PRN for Chest Pain Tramadol (Ultram), 25 MG PO Q4H PRN for Pain Allergies Coded Allergies: Gabapentin (Verified Adverse Reaction, Severe, HALLUCINATIONS-DOUBLE VISION, 05/26/17) Physical Exam Vital Signs Date Time Temp Pulse Resp B/P (MAP) Pulse Ox O2 Delivery O2 Flow Rate FiO2 08/02/17 18:35 61 16 140/82 97 Room Air 08/02/17 17:11 93 08/02/17 17:09 71 08/02/17 16:47 68 18 113/61 97 Room Air 73 105/52 08/02/17 16:20 124 20 110/70 98 Room Air Physical Exam GENERAL: Disoriented, generally weak, and unsteady. HENT: Wound is clean dry and intact. Normocephalic. Oropharynx unremarkable. EYES: Normal conjunctiva. Sclera non-icteric. NECK: Supple. No nuchal rigidity. FROM. No masses. RESPIRATORY: Clear to auscultation. No wheezes. No rales. Normal respiratory effort. CARDIAC: Normal rate. Normal rhythm. No murmurs. No rubs. Extremities warm and well perfused. Pulses equal. No JVD. GI: Soft, non-distended. No tenderness to palpation. No rebound or guarding. No masses. RECTAL: Deferred. MUSCULOSKELETAL: Atraumatic. Chest examination reveals no tenderness. The back is symmetrical on inspection without obvious abnormality. There is no CVA tenderness to palpation. No joint edema. LOWER EXTREMITIES: Calves are equal size bilaterally and non-tender. No edema. No discoloration. NEURO: Cannot stand without assistance SKIN: No rash or jaundice noted. Medical Decision & Procedures ER Provider Diagnostic Interpretation: Radiology results as stated below per my review and radiologist interpretation: CHEST ONE VIEW PORTABLE HISTORY: 81 years-old Male EVALUATE WEAKNESS acute weakness COMPARISON: Chest radiograph 02/12/2017, chest CT 06/22/2017 TECHNIQUE: Portable AP view of the chest FINDINGS: Cardiac mediastinal and hilar silhouettes are within normal limits. There is no pneumothorax, pleural effusion, focal airspace consolidation or overt pulmonary edema. Minimal subsegmental bibasilar atelectasis. The bones of the chest appear grossly intact. Degenerative changes are seen within the spine and left shoulder. Right shoulder arthroplasty. IMPRESSION: No acute process. The above report was generated using voice recognition software. It may contain grammatical, syntax or spelling errors. Electronically signed by: Sd Trinh M.D. 08/02/2017 5:08 PM Dictated Date/Time: 08/02/2017 5:06 PM HEAD WITHOUT CONTRAST (CT) CLINICAL HISTORY: 81 years-old Male with acute change in mental status. Recent head injury.. Acute altered mental status TECHNIQUE: Multiple axial CT images of the head were obtained without contrast. A dose lowering technique was utilized adhering to the principles of ALARA. CT DOSE: 638.56 mGycm COMPARISON: CT head 07/28/2017. FINDINGS: No acute intracranial hemorrhage, midline shift, intracranial mass, hydrocephalus, territorial ischemia or abnormal extra-axial collection. Moderate atrophy and ex vacuo tracheomegaly with chronic microvascular ischemic changes. Cerebral vascular calcifications are again seen at the level of the skull base. The calvarium is intact. The mastoid air cells, and middle ear cavities are clear. Mild mucosal thickening of the visualized ethmoid air cells. Soft tissues and orbits are unremarkable. IMPRESSION: No acute intracranial abnormality. The above report was generated using voice recognition software. It may contain grammatical, syntax or spelling errors. Electronically signed by: Sd Trinh M.D. 08/02/2017 5:44 PM Dictated Date/Time: 08/02/2017 5:42 PM Laboratory Results 08/02/17 16:36 Red Blood Count 5.68, Mean Corpuscular Volume 87.1, Mean Corpuscular Hemoglobin 29.6, Mean Corpuscular Hemoglobin Concent 33.9, Mean Platelet Volume 9.7, Neutrophils (%) (Auto) 53.5, Lymphocytes (%) (Auto) 27.2, Monocytes (%) (Auto) 9.0, Eosinophils (%) (Auto) 9.5, Basophils (%) (Auto) 0.5, Neutrophils # (Auto) 5.00, Lymphocytes # (Auto) 2.55, Monocytes # (Auto) 0.84, Eosinophils # (Auto) 0.89, Basophils # (Auto) 0.05 08/02/17 16:36 Test 08/02/17 16:36 08/02/17 18:35 White Blood Count 9.36 K/uL (4.8-10.8) Red Blood Count 5.68 M/uL (4.7-6.1) Hemoglobin 16.8 g/dL (14.0-18.0) Hematocrit 49.5 % (42-52) Mean Corpuscular Volume 87.1 fL (80-100) Mean Corpuscular Hemoglobin 29.6 pg (25-34) Mean Corpuscular Hemoglobin Concent 33.9 g/dl (32-36) Platelet Count 222 K/uL (130-400) Mean Platelet Volume 9.7 fL (7.4-10.4) Neutrophils (%) (Auto) 53.5 % Lymphocytes (%) (Auto) 27.2 % Monocytes (%) (Auto) 9.0 % Eosinophils (%) (Auto) 9.5 % Basophils (%) (Auto) 0.5 % Neutrophils # (Auto) 5.00 K/uL (1.4-6.5) Lymphocytes # (Auto) 2.55 K/uL (1.2-3.4) Monocytes # (Auto) 0.84 K/uL (0.11-0.59) Eosinophils # (Auto) 0.89 K/uL (0-0.5) Basophils # (Auto) 0.05 K/uL (0-0.2) RDW Standard Deviation 46.7 fL (36.4-46.3) RDW Coefficient of Variation 14.7 % (11.5-14.5) Immature Granulocyte % (Auto) 0.3 % Immature Granulocyte # (Auto) 0.03 K/uL (0.00-0.02) Prothrombin Time 10.0 SECONDS (9.0-12.0) Prothromb Time International Ratio 1.0 (0.9-1.1) Activated Partial Thromboplast Time 26.1 SECONDS (21.0-31.0) Partial Thromboplastin Ratio 1.0 Anion Gap 6.0 mmol/L (3-11) Estimated GFR () 37.9 Estimated GFR (Non- 32.7 BUN/Creatinine Ratio 11.3 (10-20) Calcium Level 8.9 mg/dl (8.5-10.1) Magnesium Level 2.3 mg/dl (1.8-2.4) Total Bilirubin 0.6 mg/dl (0.2-1) Direct Bilirubin 0.2 mg/dl (0-0.2) Aspartate Amino Transf (AST/SGOT) 18 U/L (15-37) Alanine Aminotransferase (ALT/SGPT) 23 U/L (12-78) Alkaline Phosphatase 105 U/L (45-117) Total Creatine Kinase 34 U/L (39-308) Creatine Kinase MB 1.2 ng/ml (0.5-3.6) Creatine Kinase MB Ratio 3.5 (0-3.0) Troponin I < 0.015 ng/ml (0-0.045) Total Protein 7.5 gm/dl (6.4-8.2) Albumin 3.6 gm/dl (3.4-5.0) Lipase 190 U/L (73-393) Thyroid Stimulating Hormone (TSH) 4.440 uIu/ml (0.300-4.500) Urine Color YELLOW Urine Appearance CLEAR (CLEAR) Urine pH 5.0 (4.5-7.5) Urine Specific [place] 1.023 (1.000-1.030) Urine Protein NEG (NEG) Urine Glucose (UA) NEG (NEG) Urine Ketones TRACE (NEG) Urine Occult Blood NEG (NEG) Urine Nitrite NEG (NEG) Urine Bilirubin NEG (NEG) Urine Urobilinogen NEG (NEG) Urine Leukocyte Esterase NEG (NEG) Laboratory results reviewed by me Medications Administered Medications (Trade) Dose Ordered Sig/Nader Route Start Time Stop Time Status Last Admin Dose Admin Sodium Chloride 1,000 ml @ 125 mls/hr Q8H STAT IV 08/02/17 16:35 3/19/18 20:40 DC 08/02/17 16:35 125 MLS/HR ECG Per My Interpretation Indication: weakness Rate (beats per minute): 71 Rhythm: sinus rhythm Findings: 1st degree AV block, Q waves (Inferior), RBBB, no acute ischemic change Comparison ECG Date: 02/12/17 Change: no significant change ED Course 1630: The patient was evaluated in room C4. A complete history and physical exam was performed. 1635: Sodium Chloride 1000 ml @ 125 mls/hr IV 182: I reevaluated the patient, and I discussed the treatment plan with him and his . He will be further evaluated by the hospitalist. 1848: Discussed the patient's case with Dr. Taylor KIRAN Hospitalist. The patient will be evaluated for further treatment and disposition. Medical Decision Prior records/ancillary studies reviewed and summarized above. Nursing notes reviewed and agree them. Additional history obtained from his . The patient's history was concerning for altered mental status. Differential diagnosis: Etiologies such as infection, hypoglycemia, electrolyte abnormalities, cardiac sources, intracerebral event, toxicologic, neurologic, as well as others were entertained. Physical examination: The patient is disoriented to place and time and events ER treatment provided: IV Lock Normal saline hydration Monitor On reassessment the patient felt well but was still disoriented Diagnostics interpretation by me: ECG: Without ischemic change The labs revealed an unremarkable CBC and chemistry panel. Urinalysis negative. Imaging studies: CAT scan of chest x-ray as above. The patient is disoriented. This may be related to his underlying medical issues and a concussion. He is not safe to go home in his current state. is in agreement. Further investigation is necessary Consultation: A consultation was placed with the hospitalist. The case was discussed and diagnostics were reviewed. The patient was evaluated in the ER for further treatment. Medication Reconcilliation Current Medication List: was personally reviewed by me Blood Pressure Screening Patient's blood pressure: Normal blood pressure Consults Time Called: 1839 Consulting Physician: Dr. Taylor KIRAN Hospitalist Returned Call: 1848 Discussed the patient's case with Dr. Taylor KIRAN Hospitalist. The patient will be evaluated for further treatment and disposition. Impression Primary Impression: Altered mental status Additional Impressions: Confusion Concussion Scribe Attestation The scribe's documentation has been prepared under my direction and personally reviewed by me in its entirety. I confirm that the note above accurately reflects all work, treatment, procedures, and medical decision making performed by me. Departure Information Dispostion Being Evaluated By Hospitalist Referrals Dino Brandon M.D. (PCP) Patient Instructions My [facility] Problem Qualifiers
[2017-08-02] MEDS ORDERED: CIPROFLOXACIN 500 MG TAB PO ONE (19:45)
--- NOTE | 2017-08-02 19:55 | History and Physical ---
History & Physical Date & Time of Service: Aug 02, 2017 at 19:49 Chief Complaint: Fall,Possible Concusion Primary Care Physician: Dino Brandon M.D. History of Present Illness This is a generally healthy 81-year-old male who was found with increasing confusion over the last 24 hours at home. The patient in the recent weeks had a fall with head laceration and had fully recovered including repeat outpatient CAT scan of his head. One day prior to presentation the patient did complain of some chest discomfort and became diaphoretic briefly. Patient has no history of coronary disease with cardiac catheterization in the past. The patient then became increasingly confused over the last 24 hours being awake all night and thinking he was going golfing. This is significantly different than his usual state. Patient also has been persistently incontinent of urine over the last few years but his does not notice anything but may be decreased urine output over the last few hours or days he has had no fever or chills. He has had no recent medication changes. There was a plan on increasing his Zoloft however this has not been undertaken yet. His initial screening in the ER is fairly unremarkable having improved renal function no significant leukocytosis and negative initial urinalysis negative CT of the head negative chest x-ray and negative troponin. He does of a right bundle branch block on his EKG but there may be some slight worsening of lateral T- wave depressions which were present previously but not to this extent the patient currently is without symptoms but he is agitated frequently picking at his telemetry leads and blood pressure cuff. his is at the bedside Past Medical/Surgical History Medical Problems: (1) Abnormal ECG (2) Abrasion of back (3) Angina pectoris (4) Bilateral shoulder pain (5) Bursitis of hip, right (7) Cervical strain (8) Chest pain (11) Closed head injury without loss of consciousness (12) Confusion (13) Contusion of knee (16) Coronary Atherosclerosis Of [place] Coronary Vessel (18) Encephalopathy (22) Frequent falls (23) Generalized weakness (27) Hx-Prostatic Malignancy (28) Hypertension Nos (29) Left sided chest pain (30) Malignant melanoma (32) Osteoarthritis of right ankle (33) Pneumonia, Organism Nos (34) Right ankle swelling (35) Scalp laceration (38) tia Family History Patient reports no known family medical history. Social History Smoking Status: Never Smoker Drug Use: none Marital Status: Occupational Status: retired Immunizations History of Influenza Vaccine: Yes History of Tetanus Vaccine?: needs History of Pneumococcal: Yes History of Hepatitis B Vaccine: No Allergies Coded Allergies: Gabapentin (Verified Adverse Reaction, Severe, HALLUCINATIONS-DOUBLE VISION, 05/26/17) Home Medications Scheduled Ascorbic Acid (Vitamin C), 500 MG PO QAM Aspirin (Aspirin Chewable), 81 MG PO QAM Calcium Carbonate-Cholecalcife (Caltrate 600+D), 1 TAB PO QAM Cholecalciferol (Vitamin D3), 1,000 UNITS PO QAM Cyclosporine (Ophth) (Restasis), 1 DROP OPB QAM Furosemide (Lasix), 40 MG PO Q2D Isosorbide Mononitrate (Isosorbide Mononitrate ER), 30 MG PO QAM Metoprolol Succ (Toprol Xl) (Toprol-Xl), 12.5 MG PO QAM Multiple Vitamins W/ Minerals (Centrum Silver Adult 50+), 1 TAB PO QAM Pantoprazole (Protonix), 40 MG PO QAM Polyethylene Glycol 3350 (Miralax), 17 GM PO DAILY Potassium Chloride (K-Tab), 1 TAB PO Q2D Rivastigmine Tartrate (Rivastigmine Tartrate), 6 MG PO QAM Sertraline HCl (Sertraline HCl), 150 MG PO HS Simvastatin (Zocor), 20 MG PO QPM Scheduled PRN Nitroglycerin (Nitrostat), 0.4 MG UT UD PRN for Chest Pain Tramadol (Ultram), 25 MG PO Q4H PRN for Pain Review of Systems ROS: well nourished well developed he appears agitated frequently moving and picking about the bed trying to get out of bed. No double vision blurry vision No problems with speech or swallowing No palpitations, as mentioned did have chest pain 1 day prior to presentation associated diaphoresis No Wheezing or breathing issues No abdominal pain nausea vomiting diarrhea changes in appetite or weight No burning urine urine frequency or changes in color, however decreased urine production he is chronically incontinent No focal joint pain or muscle pain No skin rashes or oral lesions No unusual bruising or bleeding He has persistent chronic focused low back pain o but no recent history of Parkinson disease r numbness or loss of strength Baseline history of Parkinson's disease Physical Exam Vital Signs Date Time Temp Pulse Resp B/P (MAP) Pulse Ox O2 Delivery O2 Flow Rate FiO2 08/02/17 18:35 61 16 140/82 97 Room Air 08/02/17 17:11 93 08/02/17 17:09 71 08/02/17 16:47 68 18 113/61 97 Room Air 73 105/52 08/02/17 16:20 124 20 110/70 98 Room Air General Appearance: WD/WN, + mild distress Head: normocephalic, atraumatic Eyes: normal inspection, PERRL, EOMI, sclerae normal Neck: supple, no JVD Respiratory/Chest: chest non-tender, lungs clear, normal breath sounds Cardiovascular: regular rate, rhythm, no murmur Abdomen/GI: normal bowel sounds, non tender, soft Back: no CVA tenderness, normal range of motion Extremities/Musculoskelatal: normal inspection, no calf tenderness, normal capillary refill Neurologic/Psych: alert, + disoriented, + pertinent finding (agitated) Skin: normal color, warm/dry, no rash Diagnostics Laboratory Results Results Past 24 Hours Test 08/02/17 16:36 08/02/17 18:35 Range/Units White Blood Count 9.36 4.8-10.8 K/uL Red Blood Count 5.68 4.7-6.1 M/uL Hemoglobin 16.8 14.0-18.0 g/dL Hematocrit 49.5 42-52 % Mean Corpuscular Volume 87.1 80-100 fL Mean Corpuscular Hemoglobin 29.6 25-34 pg Mean Corpuscular Hemoglobin Concent 33.9 32-36 g/dl Platelet Count 222 130-400 K/uL Mean Platelet Volume 9.7 7.4-10.4 fL Neutrophils (%) (Auto) 53.5 % Lymphocytes (%) (Auto) 27.2 % Monocytes (%) (Auto) 9.0 % Eosinophils (%) (Auto) 9.5 % Basophils (%) (Auto) 0.5 % Neutrophils # (Auto) 5.00 1.4-6.5 K/uL Lymphocytes # (Auto) 2.55 1.2-3.4 K/uL Monocytes # (Auto) 0.84 0.11-0.59 K/uL Eosinophils # (Auto) 0.89 0-0.5 K/uL Basophils # (Auto) 0.05 0-0.2 K/uL RDW Standard Deviation 46.7 36.4-46.3 fL RDW Coefficient of Variation 14.7 11.5-14.5 % Immature Granulocyte % (Auto) 0.3 % Immature Granulocyte # (Auto) 0.03 0.00-0.02 K/uL Prothrombin Time 10.0 9.0-12.0 SECONDS Prothromb Time International Ratio 1.0 0.9-1.1 Activated Partial Thromboplast Time 26.1 21.0-31.0 SECONDS Partial Thromboplastin Ratio 1.0 Sodium Level 138 136-145 mmol/L Potassium Level 4.0 3.5-5.1 mmol/L Chloride Level 105 98-107 mmol/L Carbon Dioxide Level 27 21-32 mmol/L Anion Gap 6.0 3-11 mmol/L Blood Urea Nitrogen 21 7-18 mg/dl Creatinine 1.87 0.60-1.40 mg/dl Estimated GFR () 37.9 Estimated GFR (Non- 32.7 BUN/Creatinine Ratio 11.3 10-20 Random Glucose 126 70-99 mg/dl Calcium Level 8.9 8.5-10.1 mg/dl Magnesium Level 2.3 1.8-2.4 mg/dl Total Bilirubin 0.6 0.2-1 mg/dl Direct Bilirubin 0.2 0-0.2 mg/dl Aspartate Amino Transf (AST/SGOT) 18 15-37 U/L Alanine Aminotransferase (ALT/SGPT) 23 12-78 U/L Alkaline Phosphatase 105 45-117 U/L Total Creatine Kinase 34 39-308 U/L Creatine Kinase MB 1.2 0.5-3.6 ng/ml Creatine Kinase MB Ratio 3.5 0-3.0 Troponin I < 0.015 0-0.045 ng/ml Total Protein 7.5 6.4-8.2 gm/dl Albumin 3.6 3.4-5.0 gm/dl Lipase 190 73-393 U/L Thyroid Stimulating Hormone (TSH) 4.440 0.300-4.500 uIu/ml Urine Color YELLOW Urine Appearance CLEAR CLEAR Urine pH 5.0 4.5-7.5 Urine Specific [place] 1.023 1.000-1.030 Urine Protein NEG NEG Urine Glucose (UA) NEG NEG Urine Ketones TRACE NEG Urine Occult Blood NEG NEG Urine Nitrite NEG NEG Urine Bilirubin NEG NEG Urine Urobilinogen NEG NEG Urine Leukocyte Esterase NEG NEG Microbiology Results 08/02/17 Urine Culture, Received Pending Diagnostic Radiology CT head is negative CXR normal other (RBBB with T wave inversion) Impression Assessment and Plan 81-year-old male here with acute encephalopathy of undetermined cause Encephalopathy the patient's a negative screening workup so far will check a urine culture given the fact that he has chronic incontinence despite his urinalysis being unremarkable he will be given 1 dose of Cipro p.o Parkinson disease patient will be kept on rivastigmine, be given 1 dose of Seroquel at bedtime to try to help any issues this evening. If his cardiac evaluation and other screening evaluations are negative consideration of a neurology consultation with will be considered Chest pain, patient's initial EKGs is slightly worse however troponins unremarkable will maintain isosorbide aspirin and Toprol-XL. 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 The patient does usually take every other day Lasix this will be held as the patient is hydrated on presentation. The patient last echocardiogram 2015 showed preserved ejection fraction with grade 1 diastolic dysfunction Regarding depression associate with his Parkinson's disease there was discussion of increasing Zoloft from 100-150 mg however this has not been done yet Return to be maintained for GERD MiraLAX be maintained for constipation DVT prevention will be heparin therapy Resuscitation Status VTE Prophylaxis Will order VTE Prophylaxis: Yes
[2017-08-02] MEDS ORDERED: SODIUM CHLORIDE 0.9% 1000ML 1,000 ML IV SCH (20:40)
[2017-08-02] MEDS ORDERED: QUETIAPINE FUMARATE 25 MG TAB PO ONE (21:00)
[2017-08-02 21:13] VITALS: BP 178/83; PULSE 62; TEMP 36.7; O2SAT 94; Ht 180.3 cm; Wt 79.1 kg
[2017-08-02] MEDS: SIMVASTATIN 20 MG TAB PO SCH (21:24)
[2017-08-02] MEDS: SERTRALINE HCL 50 MG TAB PO SCH (21:25)
[2017-08-02] MEDS: HEPARIN SOD 5000 UNIT/0.5 ML CARP SQ SCH (21:28)
[2017-08-03] VITALS (10 sets, daily range): BP systolic 113–216; BP diastolic 73–99; PULSE 55–88; TEMP 36.4–36.7; O2SAT 91–98
[2017-08-03] MEDS: RESTASIS - ORDER AWAITING ACTION SCH ×3 (00:44→11:25)
[2017-08-03] MEDS ORDERED: HydrALAZINE HCL 20 MG/ML VIAL ONE (01:52)
[2017-08-03] MEDS ORDERED: HydrALAZINE HCL 20 MG/ML VIAL IV. PRN (02:00)
[2017-08-03 07:09] LABS: HEMATOCRIT 48.3 % (42-52); MEAN CELL VOLUME 87.2 fL (80-100); MEAN CORPUSCULAR HEMOGLOBIN 28.9 pg (25-34); MEAN CORPUSCULAR HGB CONC 33.1 g/dl (32-36); MEAN PLATELET VOLUME 9.3 fL (7.4-10.4); PLATELET COUNT 209 K/uL (130-400); RED CELL DISTRIBUTION WIDTH CV 14.7 % (11.5-14.5); RED CELL DISTRIBUTION WIDTH SD 46.8 fL (36.4-46.3)
[2017-08-03] MEDS: ASPIRIN 81 MG ECTAB PO SCH (07:28)
[2017-08-03] MEDS: ISOSORBIDE MONONITRATE 30 MG TABCR PO SCH (07:29)
[2017-08-03] MEDS: PANTOprazole SOD 40 MG TAB PO SCH (07:29)
[2017-08-03] MEDS: POLYETHYLENE (MIRALAX) 17 GM PACK PO SCH (07:29)
[2017-08-03] MEDS: RIVASTIGMINE TARTRATE (EXELON) 1.5 MG CAP PO SCH (07:29)
[2017-08-03] MEDS: METOPROLOL SUCC 25MG EXT REL TAB PO SCH (07:29)
[2017-08-03] MEDS: HEPARIN SOD 5000 UNIT/0.5 ML CARP SQ SCH ×2 (07:30→20:40)
[2017-08-03 07:37] LABS: BLOOD UREA NITROGEN 18 mg/dl (7-18); CALCIUM 9.1 mg/dl (8.5-10.1); CARBON DIOXIDE 26 mmol/L (21-32); CREATININE 1.56 mg/dl (0.60-1.40); GLUCOSE 92 mg/dl (70-99); POTASSIUM 3.6 mmol/L (3.5-5.1); SODIUM 141 mmol/L (136-145)
--- NOTE | 2017-08-03 07:52 | Clinical Documentation Query ---
CLINICAL DOCUMENTATION QUERY 81 yo male admitted for altered mental status, weakness and confusion. Echo from 11/24/15 showed mild concentric left ventricular hypertrophy, grade I diastolic dysfunction, and EF = 50-55%. In your clinical opinion is this patient being managed for: ( ) Chronic diastolic CHF (xx ) Not Agree ( ) Other explanation of clinical findings (Please Explain) ( ) Unable to determine (Please Define) ( ) Need to Discuss The medical record reflects the following clinical findings, treatment, and risk factors. Clinical Indicators: As above Treatment: Home Lasix 40mg q2d, telemetry Risk Factors: CKD, HTN Please clarify and document your clinical opinion in the progress notes and discharge summary. Terms such as "probable", "suspected", "likely", "questionable", "possible", or "still to be ruled out" are acceptable. IF IN AGREEMENT, YOU MUST DOCUMENT ABOVE DIAGNOSTIC STATEMENT IN DAILY PROGRESS NOTES AND DISCHARGE SUMMARY. This document is not part of the patient's record. Thank You, Lora Ramsay RN [phone]
--- NOTE | 2017-08-03 15:23 | Hospitalist Progress Note ---
Hospitalist Progress Note Date of Service Aug 03, 2017. (Peggy Thomas ., ABIC) Subjective Pt evaluation today including: conversation w/ patient, conversation w/ family ( at bedside), physical exam, chart review, lab review, review of studies, review of inpatient medication list Pain: None PO Intake: Tolerating PO diet Voiding: no voiding problems Patient reports feeling well and denies any acute complaints currently. The patient denies fevers, chills, sweats, chest pain, palpitations, claudication, cough, wheezing, shortness of breath, nausea, vomiting, abdominal pain, dysuria , hematuria, urinary retention, paralysis, weakness, numbness and tingling. His is at bedside and states he is much more confused than normal and that he is usually oriented. She states that he fell last Wednesday. He had a head CT at that time, as well as a second scan 2 days later ordered by Dr. Carbone, his neurologist. The patient had some trouble walking following the fall but had otherwise been doing well. The states that Wednesday and Wednesday he was doing very well, in fact she states they were the best days they have had in the last 3 years since he was diagnosed with Parkinson's. Then Wednesday night, he began to become confused/disoriented. Additional Comments: See HPI for pertinent positives and negatives. All other systems reviewed and negative. (Peggy Thomas ., PA-C) Objective Vital Signs Date Time Temp Pulse Resp B/P (MAP) Pulse Ox O2 Delivery O2 Flow Rate FiO2 08/03/17 12:21 36.5 77 20 119/76 (90) 93 Room Air 08/03/17 12:00 Room Air 08/03/17 08:06 36.6 67 16 159/89 (112) 94 Room Air 08/03/17 08:00 Room Air 08/03/17 07:30 63 192/73 (112) 95 Room Air 08/03/17 04:07 36.4 60 20 178/88 (118) 97 Room Air 08/03/17 04:00 Room Air 08/03/17 01:35 216/99 (138) 08/03/17 00:10 36.4 55 18 170/96 (120) 98 Room Air 193/89 (123) 08/02/17 23:59 Room Air 08/02/17 21:13 36.7 62 18 178/83 94 Room Air 08/02/17 20:14 61 21 122/98 93 08/02/17 18:35 61 16 140/82 97 Room Air 08/02/17 17:11 93 08/02/17 17:09 71 08/02/17 16:47 68 18 113/61 97 Room Air 73 105/52 08/02/17 16:20 124 20 110/70 98 Room Air (Peggy Thomas ., PA-C) Physical Exam Notes: General appearance: Well-developed, well-nourished, no apparent distress Head: +Small laceration right posterior scalp closed with 2 lexi, healing. Normocephalic Eyes: Normal inspection, PERRL, EOMI ENT: Normal ENT inspection, hearing grossly normal, pharynx normal Neck: Supple, no JVD, trachea midline Respiratory/Chest: Lungs clear to auscultation, normal breath sounds, no respiratory distress Cardiovascular: Regular rate & rhythm, no gallop, no murmur Abdomen/GI: Normal bowel sounds, non-tender, soft Extremities/Musculoskeletal: Normal inspection, no calf tenderness, no pedal edema Neurological/Psych: +Disoriented to place and time. Alert, normal mood/affect , oriented x 1 Skin: Normal color, warm/dry, no rash (Peggy Thomas ., PA-C) Laboratory Results Last 24 Hours Test 08/02/17 16:36 08/02/17 18:35 08/03/17 06:55 White Blood Count 9.36 K/uL 10.10 K/uL Red Blood Count 5.68 M/uL 5.54 M/uL Hemoglobin 16.8 g/dL 16.0 g/dL Hematocrit 49.5 % 48.3 % Mean Corpuscular Volume 87.1 fL 87.2 fL Mean Corpuscular Hemoglobin 29.6 pg 28.9 pg Mean Corpuscular Hemoglobin Concent 33.9 g/dl 33.1 g/dl Platelet Count 222 K/uL 209 K/uL Mean Platelet Volume 9.7 fL 9.3 fL Neutrophils (%) (Auto) 53.5 % Lymphocytes (%) (Auto) 27.2 % Monocytes (%) (Auto) 9.0 % Eosinophils (%) (Auto) 9.5 % Basophils (%) (Auto) 0.5 % Neutrophils # (Auto) 5.00 K/uL Lymphocytes # (Auto) 2.55 K/uL Monocytes # (Auto) 0.84 K/uL Eosinophils # (Auto) 0.89 K/uL Basophils # (Auto) 0.05 K/uL RDW Standard Deviation 46.7 fL 46.8 fL RDW Coefficient of Variation 14.7 % 14.7 % Immature Granulocyte % (Auto) 0.3 % Immature Granulocyte # (Auto) 0.03 K/uL Prothrombin Time 10.0 SECONDS Prothromb Time International Ratio 1.0 Activated Partial Thromboplast Time 26.1 SECONDS Partial Thromboplastin Ratio 1.0 Sodium Level 138 mmol/L 141 mmol/L Potassium Level 4.0 mmol/L 3.6 mmol/L Chloride Level 105 mmol/L 108 mmol/L Carbon Dioxide Level 27 mmol/L 26 mmol/L Anion Gap 6.0 mmol/L 7.0 mmol/L Blood Urea Nitrogen 21 mg/dl 18 mg/dl Creatinine 1.87 mg/dl 1.56 mg/dl Estimated GFR () 37.9 47.2 Estimated GFR (Non- 32.7 40.8 BUN/Creatinine Ratio 11.3 11.8 Random Glucose 126 mg/dl 92 mg/dl Calcium Level 8.9 mg/dl 9.1 mg/dl Magnesium Level 2.3 mg/dl Total Bilirubin 0.6 mg/dl Direct Bilirubin 0.2 mg/dl Aspartate Amino Transf (AST/SGOT) 18 U/L Alanine Aminotransferase (ALT/SGPT) 23 U/L Alkaline Phosphatase 105 U/L Total Creatine Kinase 34 U/L Creatine Kinase MB 1.2 ng/ml Creatine Kinase MB Ratio 3.5 Troponin I < 0.015 ng/ml < 0.015 ng/ml Total Protein 7.5 gm/dl Albumin 3.6 gm/dl Lipase 190 U/L Thyroid Stimulating Hormone (TSH) 4.440 uIu/ml Urine Color YELLOW Urine Appearance CLEAR Urine pH 5.0 Urine Specific [place] 1.023 Urine Protein NEG Urine Glucose (UA) NEG Urine Ketones TRACE Urine Occult Blood NEG Urine Nitrite NEG Urine Bilirubin NEG Urine Urobilinogen NEG Urine Leukocyte Esterase NEG Est Creatinine Clear Calc Drug Dose 38.9 ml/min (Peggy Thomas PA-C) Assessment and Plan 81 y/o male with a history of CAD, h/o OH, HTN, HLD, h/o ischemic cardiomyopathy , chronic diastolic CHF, CDK stage III, neuropathy, Parkinson's disease, vascular dementia, depression, h/o prostate cancer, and GERD who presents with acute encephalopathy and recent fall. Pt has now had 3 head CTs following fall on 07/26, all negative for acute intracranial findings. Acute encephalopathy secondary to concussion from recent fall vs infection vs other?--ongoing -Admit to telemetry. No acute events overnight. Pt in sinus rhythm/sinus bradycardia with HR 50s-70s -UA unremarkable but does have chronic incontinence. 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 Pt follows with Dr. Carbone -Pt had chest pain and diaphoresis LEAD CARE MANAGER, none since -Troponin negative x2, will check one more -Repeat EKG no ischemic changes -Recent fall 07/26, [address] Remove on 08/04 (10 days total) CAD, h/o OH, HTN, HLD, ischemic cardiomyopathy--stable -Continue ASA, Toprol XL 12.5 mg PO qd, Imdur 30 mg PO qd, and Zocor 20 mg PO qd Chronic diastolic CHF--stable, no acute exacerbation -Resume Lasix 40 mg PO q2d -Last echo 2016 EF now preserved with type 1 diastolic dysfunction, EF had been previously reduced in 2012 study CKD stage III--stable -Creatinine stable, actually better than baseline Parkinson's disease, depression -Continue rivastigmine 6 mg PO qd and Zoloft 150 mg PO qd DVT prophylaxis -Heparin 5000 units SC q12h Dispo -From home w/ -PT/OT evals pending (Peggy Thomas ., TAN) I personally interviewed and examined the patient. I agree with history of present illness and physical exam mentioned above, I also performed my own history taking and examination. Past medical history and review of system has been obtained by myself I reviewed all pertinent labs and studies Reviewed current medications I discussed and formulated of the assessment and plan mentioned above. Please refer to the Summary mentioned below. 81 years old man with past medical history of hypertension, dyslipidemia, ischemic cardiomyopathy, chronic diastolic congestive heart failure, chronic kidney disease stage III, and Parkinson's disease with dementia who recently about a week ago had a fall with head laceration status post lexi that needs to be removed presented to the ED with more confusion and change in mental status.. As per his he improved after the fall and then declined again which makes concussion lower on the list. Urine analysis was checked and did not show any signs of UTI TSH is 4.4 We will order ammonia level, RPR to rule out syphilis that he could have inquired many years ago, B12 level, his last B12 level was 2 years ago was 400 borderline low will also start him on empiric thiamine supplement, despite of lack of alcoholism history but for possible nutritional thiamine deficiency will give him Korsakoff dose 500 mg 3 times daily that can be switched 100 mg p.o. daily after 3 days General Appearance: not in acute distress Eyes: normal Sclerae, extraocular muscle intact ENT: hearing grossly normal Neck: supple Respiratory/Chest: normal air entry bilateral ,no respiratory distress, no accessory muscle use Cardiovascular: regular rate, rhythm, no murmur Abdomen: non tender, soft, no masses Extremities: no edema Neurologic/Psychiatric: Very pleasant answers all questions follow simple command but disoriented to time and place moves all extremities sensation intact cranial nerves II-12 appear to be intact Skin: normal color, warm/dry, no rash Daniel Diez MD, [facility] hospitalist group (Daniel Cadena MD)
[2017-08-03] MEDS: THIAMINE HCL INJ 500 MG in SODIUM CHLORIDE 0.9% 50ML 50 ML IV SCH ×2 (18:21→23:39)
[2017-08-03] MEDS: SERTRALINE HCL 50 MG TAB PO SCH (20:38)
[2017-08-03] MEDS: SIMVASTATIN 20 MG TAB PO SCH (20:38)
[2017-08-04] VITALS (12 sets, daily range): BP systolic 92–160; BP diastolic 51–79; PULSE 53–85; TEMP 36.4–36.9; O2SAT 94–97
[2017-08-04 07:42] LABS: HEMATOCRIT 46.4 % (42-52); HEMOGLOBIN 15.4 g/dL (14.0-18.0); MEAN CELL VOLUME 87.1 fL (80-100); MEAN CORPUSCULAR HEMOGLOBIN 28.9 pg (25-34); MEAN CORPUSCULAR HGB CONC 33.2 g/dl (32-36); MEAN PLATELET VOLUME 9.5 fL (7.4-10.4); PLATELET COUNT 196 K/uL (130-400); RED CELL DISTRIBUTION WIDTH CV 15.1 % (11.5-14.5); RED CELL DISTRIBUTION WIDTH SD 48.1 fL (36.4-46.3); WHITE BLOOD COUNT 8.91 K/uL (4.8-10.8)
[2017-08-04] MEDS: ISOSORBIDE MONONITRATE 30 MG TABCR PO SCH (08:00)
[2017-08-04] MEDS: RIVASTIGMINE TARTRATE (EXELON) 1.5 MG CAP PO SCH (08:01)
[2017-08-04] MEDS: PANTOprazole SOD 40 MG TAB PO SCH (08:01)
[2017-08-04] MEDS: METOPROLOL SUCC 25MG EXT REL TAB PO SCH (08:01)
[2017-08-04] MEDS: ASPIRIN 81 MG ECTAB PO SCH (08:01)
[2017-08-04] MEDS: POLYETHYLENE (MIRALAX) 17 GM PACK PO SCH (08:02)
[2017-08-04] MEDS: HEPARIN SOD 5000 UNIT/0.5 ML CARP SQ SCH (08:06)
[2017-08-04] MEDS: THIAMINE HCL INJ 500 MG in SODIUM CHLORIDE 0.9% 50ML 50 ML IV SCH ×2 (08:08→14:00)
[2017-08-04 08:22] LABS: ALBUMIN 3.3 gm/dl (3.4-5.0); CREATININE 1.76 mg/dl (0.60-1.40); POTASSIUM 4.4 mmol/L (3.5-5.1)
[2017-08-04 08:33] LABS: TOTAL PROTEIN 6.8 gm/dl (6.4-8.2)
--- NOTE | 2017-08-04 08:58 | Neurology Consultation ---
Neurology Consultation Date of Consultation: Aug 04, 2017. Attending Physician: Sergio Vazquez M.D. Primary Care Physician: Dino Brandon M.D. Reason for Consultation: Patient is an 81-year-old, was asked to see the request of Dr. Vazquez and Peggy Thomas PA-C, for neurologic consultation regarding recent head trauma, confusion, and balance difficulties. History of Present Illness Source: patient, caregiver, clinic records, hospital records I have been following this patient as an outpatient for many years for vascular dementia, mild secondary parkinsonism, chronic lumbar spine pain, and generalized polyneuropathy. He was seen in the summer of 2014 and had a left peroneal palsy and footdrop, which although improved, he still has some residual left foot weakness. In January of 2015 he had a TIA involving the left side which clinically recovered to baseline. An MRI of the brain showed moderate old small vessel ischemic disease but no acute stroke. He was switched from aspirin (he has had TIAs and mini strokes in the past) to Plavix. He has had no further TIAs or strokes that we are aware. He was converted from Plavix back to aspirin and been on this for at least a year. On July 26, he lost his balance tripping and falling backwards hitting his occiput. This required lexi to close and a CT scan of the head was unremarkable. He ended up seeing us for follow-up in the office July 29. His increased confusion and balance issues since the closed head trauma was improving although it was not quite back to baseline, according to his . Again, according to his , he was markedly improved and apparently is good as he has ever been, on the and . Evening of August 01 he had increased confusion and worse balance. He saw Dr. Henry as an outpatient on August 02 who recommended transferring to the emergency room. He arrived to the emergency room at 1620 hours on August 02 with a pulse of 124 , respiratory rate 20, blood pressure 110/70, and O2 saturation 98%. He was markedly confused. He was described as generally weak and unsteady could not ambulate or stand on his own. CT scan of the head showed no acute changes. Chest x-ray was unremarkable. Laboratory studies were unremarkable as well Patient has been afebrile and vital signs have been stable The patient has no complaint of pain, headache, vision problems, dizziness, ringing in his ears, chest pain, abdomen pain, new weakness or numbness, or other issues. As a baseline, he has dementia, parkinsonism, and gait disturbance due to a combination of his parkinsonism, generalized polyneuropathy, and low back issues. He has fluctuated with his mental status and walking ability for 2 or 3 years now Past Medical/Surgical History Medical Problems: (1) Altered mental status Status: Acute (2) Angina pectoris Status: Acute (3) Cervical strain Status: Acute (4) Closed head injury Status: Acute (5) Closed head injury without loss of consciousness Status: Acute (6) Concussion Status: Acute (7) Confusion Status: Acute (8) Frequent falls Status: Acute (9) Generalized weakness Status: Acute (10) Head injury Status: Acute (11) Left sided chest pain Status: Acute (12) Scalp laceration Status: Acute (13) Weakness Status: Acute Vascular dementia, with some aging components The parkinsonism, relatively mild, secondary to his dementia condition History of TIAs and history of moderate small vessel ischemic disease on MRI Lumbar spinal stenosis post decompression of surgery in May of 2013, with chronic low back pain 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 History of prostate cancer, post TURP and prostatectomy Ischemic cardiomyopathy with diastolic and systolic heart failure and coronary disease with TX in the past Gastroesophageal reflux disease Hypertension Post right shoulder surgery Dyslipidemia history of malignant melanoma removal Family History Father had history of coronary artery disease an MRI. Mother had history of cancer of uncertain type Social History Patient never smoked cigarettes and does not consume alcohol. 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 Smoking Status: Never smoker Smokeless Tobacco Use: No Alcohol Use: none Drug Use: none Marital Status: Housing Status: lives with family Occupation Status: retired Allergies Coded Allergies: Gabapentin (Verified Adverse Reaction, Severe, HALLUCINATIONS-DOUBLE VISION, 05/26/17) Current Inpatient Medications Current Inpatient Medications Medications (Trade) Dose Ordered Sig/Nader Route Start Time Stop Time Status Last Admin Dose Admin Heparin Sodium (Porcine) (Heparin Sq 5000 Unit/0.5ml) 5,000 unit Q12 SQ 08/02/17 21:00 09/01/17 20:59 08/04/17 08:06 5,000 UNIT Acetaminophen (Tylenol Tab) 650 mg Q4H PRN PO 08/02/17 19:30 09/01/17 19:29 08/03/17 18:23 650 MG Magnesium Hydroxide (Milk Of Magnesia Susp) 30 ml Q12H PRN PO 08/02/17 19:30 09/01/17 19:29 Ondansetron HCl (Zofran Inj) 4 mg Q6H PRN IV 08/02/17 19:30 09/01/17 19:29 Nitroglycerin (Nitrostat Tab) 0.4 mg UD PRN SL 08/02/17 19:30 09/01/17 19:29 Aspirin (Ecotrin Tab) 81 mg QAM PO 08/03/17 09:00 09/02/17 08:59 08/04/17 08:01 81 MG Polyethylene (Miralax Powder Packet) 17 gm DAILY PRN PO 08/02/17 19:30 09/01/17 19:29 Isosorbide Mononitrate (Imdur Ext Rel Tab) 30 mg QAM PO 08/03/17 09:00 09/02/17 08:59 08/04/17 08:00 30 MG Metoprolol Succinate (Toprol Xl Tab) 12.5 mg QAM PO 08/03/17 09:00 09/02/17 08:59 08/04/17 08:01 12.5 MG Pantoprazole Sodium (Protonix Tab) 40 mg QAM PO 08/03/17 09:00 09/02/17 08:59 08/04/17 08:01 40 MG Sertraline HCl (Zoloft Tab) 150 mg HS PO 08/02/17 21:00 09/01/17 20:59 08/03/17 20:38 150 MG Simvastatin (Zocor Tab) 20 mg QPM PO 08/02/17 21:00 09/01/17 20:59 08/03/17 20:38 20 MG Miscellaneous Information (Order Awaiting Action) 1 ea QS N/A 08/03/17 00:00 09/02/17 00:00 Polyethylene (Miralax Powder Packet) 17 gm DAILY PO 08/03/17 09:00 09/02/17 08:59 08/04/17 08:02 17 GM Rivastigmine Tartrate (Exelon Cap) 6 mg QAM PO 08/03/17 09:00 09/02/17 08:59 08/04/17 08:01 6 MG Hydralazine HCl (HydrALAZINE INJ) 10 mg Q6H PRN IV. 08/03/17 02:00 09/02/17 01:59 08/03/17 02:01 10 MG Furosemide (Lasix Tab) 40 mg Q2D PO 08/04/17 09:00 09/03/17 08:59 08/04/17 08:09 40 MG Thiamine HCl 500 mg/Sodium Chloride 55 ml @ 208 mls/hr TID IV 08/03/17 18:00 09/02/17 17:59 08/04/17 08:08 208 MLS/HR Review of Systems Constitutional: No weakness, No fatigue Eyes: No worsening of vision, No diplopia ENT: No hearing loss, No tinnitus Respiratory: No cough, No shortness of breath Cardiovascular: No chest pain, No palpitations Abdomen: No pain, No nausea Musculoskeletal: No joint pain, No muscle pain Genitourinary - Male: + urinary incontinence, No hematuria Neurologic: + memory loss, + weakness, + balance problems, No numbness/tingling , No vertigo Psychiatric: No depression symptoms, No anxiety Endocrine: No fatigue Hematologic / Lymphatic: No abnormal bleeding/bruising Integumentary: No rash Allergic / Immunologic: No hives Physical Exam Vital Signs (Past 24 Hrs): Date Time Temp Pulse Resp B/P (MAP) Pulse Ox O2 Delivery O2 Flow Rate FiO2 08/04/17 07:57 36.6 53 20 160/51 (87) 95 Room Air 08/04/17 04:15 97 Room Air 08/04/17 03:25 36.9 54 18 150/79 (102) 97 Room Air 08/04/17 00:10 94 Room Air 08/03/17 23:52 36.7 57 18 150/85 (106) 94 Room Air 08/03/17 20:00 91 Room Air 08/03/17 19:05 36.4 60 18 154/86 (108) 91 Room Air 08/03/17 16:00 Room Air 08/03/17 15:29 36.6 88 19 113/75 (88) 94 Room Air 08/03/17 12:21 36.5 77 20 119/76 (90) 93 Room Air 08/03/17 12:00 Room Air Patient is right-handed. The patient is awake and alert. Speech is normal without aphasia or dysarthria, although he occasionally has some word-finding difficulties, but I think this is more dementia than aphasia. He is pleasant and cooperative and follows one- step commands fairly well. His memory is poor with both short and long-term. He cannot follow 2 step commands very well. The discs are sharp with positive venous pulsations. There are no exudates, hemorrhages, or blood vessel changes seen. Pupils are 3mm bilaterally and reactive to light. Extraocular eye muscles are intact without nystagmus. Is no vertical gaze palsy. Visual acuity and visual pierson seem normal grossly to confrontation. There are no deficits to sensation of the face bilaterally. Corneal reflexes are positive bilaterally. Facial strength and symmetry is normal bilaterally. Hearing seems intact grossly to voice and finger rub. Palate moves well without asymmetry. There is normal sternocleidomastoid and trapezius strength bilaterally. Tongue is midline with good strength bilaterally. Neck is with full range of motion without discomfort. There are no cervical bruits. There are no cranial or ocular bruits. Heart is without murmur. Cervical, thoracic, and lumbar spine are nontender to palpation. Gait is is narrow based very cautious and he shuffles particularly with turns. He can take a few steps in a straight line with minimal assistance however. He does need some help getting from a sitting to a standing position. With outstretched arms there is no drift. There is a very minimal intermittent resting tremor on the left. He also has mild action tremor bilaterally. There is no ataxia with vidchm-de-llev testing. There is reasonable facility in the hands right greater than left side. There are no abnormal involuntary movements noted. Motor strength is 5/5 diffusely in the arms bilaterally including deltoids, biceps, brachioradialis, wrist flexors and extensors, economist research assistant, and intrinsic hand muscles. Motor strength is 5/5 diffusely in the legs bilaterally including hip flexors, quadriceps, hamstring, gastrocnemius, tibialis anterior, and tibialis posterior, bilaterally. The right tibialis anterior was 5/5. The left was 4/5. Toe extensors are normal and there is good bulk in the extensor digitorum brevis muscle bilaterally. The limbs have some very mild cogwheeling in the arms but not the legs. He does not have a lead pipe type rigidity. Sensory examination is intact to pin and touch throughout all four limbs. Reflexes are 0/4 in the biceps, triceps, brachioradialis, quadriceps, and Achilles tendons bilaterally. Toes are downgoing with plantar stimulation bilaterally. Peripheral pulses are present and of normal quality distally in all four limbs. There is no peripheral edema noted. Laboratory Results Past 24 Hours: 08/04/17 07:06 Test 08/03/17 15:39 08/03/17 17:39 08/04/17 07:06 Troponin I < 0.015 ng/ml (0-0.045) Ammonia 12.1 umol/L (11-32) Vitamin B12 Level 505 pg/mL (211-911) Red Blood Count 5.33 M/uL (4.7-6.1) Mean Corpuscular Volume 87.1 fL (80-100) Mean Corpuscular Hemoglobin 28.9 pg (25-34) Mean Corpuscular Hemoglobin Concent 33.2 g/dl (32-36) RDW Standard Deviation 48.1 fL (36.4-46.3) RDW Coefficient of Variation 15.1 % (11.5-14.5) Mean Platelet Volume 9.5 fL (7.4-10.4) Prothrombin Time 10.5 SECONDS (9.0-12.0) Prothromb Time International Ratio 1.0 (0.9-1.1) Imaging HEAD WITHOUT CONTRAST (CT) CLINICAL HISTORY: 81 years-old Male with acute change in mental status. Recent head injury.. Acute altered mental status TECHNIQUE: Multiple axial CT images of the head were obtained without contrast. A dose lowering technique was utilized adhering to the principles of ALARA. CT DOSE: 638.56 mGycm COMPARISON: CT head 07/28/2017. FINDINGS: No acute intracranial hemorrhage, midline shift, intracranial mass, hydrocephalus, territorial ischemia or abnormal extra-axial collection. Moderate atrophy and ex vacuo tracheomegaly with chronic microvascular ischemic changes. Cerebral vascular calcifications are again seen at the level of the skull base. The calvarium is intact. The mastoid air cells, and middle ear cavities are clear. Mild mucosal thickening of the visualized ethmoid air cells. Soft tissues and orbits are unremarkable. IMPRESSION: No acute intracranial abnormality. The above report was generated using voice recognition software. It may contain grammatical, syntax or spelling errors. Electronically signed by: Sd Trinh M.D. 08/02/2017 5:44 PM Impression 1. Closed head trauma with probable concussion July 26 He fell, losing his balance, striking his right occiput requiring lexi. He probably has some increased confusion and gait issues because of the head trauma/concussion which could last days to weeks. It is typical for someone with dementia, who gets and additional head injury/concussion to have worsening cognitive function, balance, and other. 2. Dementia This patient has a mixed mainly vascular but also senile dementia. It has been progressive over time slowly. He has moderate small vessel ischemic disease seen on MRI He is currently on rivastigmine but I am not sure this is really doing much for him at this point. In the past, he has been on memantine and donepezil without much success and with side effects. This morning, he clearly has dementia but I see no signs of delirium or significant encephalopathy. His uses the term confusion and I believe his dementia fluctuates with "good and bad" days which is typical for him over the last several years. 3. Parkinsonism This is relatively mild and is secondary to his degenerative disease. This is not a primary Parkinson's disease. I have refrained from giving him Parkinson's medication over the years because I was concerned would make his mental status (his most significant issue) worse His parkinsonism consist of a very minimal intermittent resting tremor on the left, some moderate bradykinesia, minimal cogwheeling, and atypical shuffling gait with en bloc turning 4. Essential tremor This is chronic and mild. 5. Generalized polyneuropathy This is chronic and gives him a sensory ataxia, worsening his gait 6. History of low back surgery from lumbar spinal stenosis with chronic intermittent low back pain. This is currently stable 7. 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 This is stable. Plan 1. Discontinue rivastigmine as I currently see no purpose for this medication and is probably not helping. 2. Physical and occupational therapy 3. Social service consult We need to consider placement. I am uncertain if the patient's , although well meaning, is capable of caring for him anymore. He is quite a lot for 1 person, particularly with her age and condition, to take care of by herself. 4. MRI of the brain with and without contrast can be considered but I am not certain what this would change from a treatment standpoint. 5. Continue sertraline at the present dose, as this has helped with behavior and the "sundowning" 6. Continue 81 mg aspirin tablet daily. I have no further neurologic testing or treatment recommendations to make at this time. Please contact me if I can be of further assistance on this case. I will follow this patient as an outpatient as needed. Overall, I spent a total of 90 minutes with this case including records review, discussion of the case with his other clinicians, nursing staff, and direct bedside evaluation
[2017-08-04] MEDS ORDERED: ASPIRIN 81 MG CHEW PO SCH (09:00)
[2017-08-04] MEDS ORDERED: FUROSEMIDE 40 MG TAB PO SCH (09:00)
--- NOTE | 2017-08-04 13:47 | Discharge Instructions ---
Discharge Instructions Date of Service Aug 04, 2017. Admission Reason for Admission: Abnormal Ecg; Encephalopathy Discharge Discharge Diagnosis / Problem: Concussion Discharge Goals Goal(s): Decrease discomfort, Diagnostic testing Activity Recommendations Activity Level: Assistance Required Therapies: Physical Therapy, Occupational Therapy . Additional Information Patient informed of condition: Yes Advance Directives: No DNR: No Level of Care: Acute Rehab Communicable Disease: No Prognosis: Stable Sutton Catheter: No Instructions / Follow-Up Instructions / Follow-Up The patient was admitted for acute encephalopathy in the setting of a recent fall with head trauma, per his . The patient had a fall on 07/26 in which he hit his head and sustained a laceration. He presented to the ER where a head CT showed no acute intracranial findings. His laceration was closed with 2 lexi. He followed up with his neurologist later that week and was diagnosed with a concussion. Another head CT was still negative for intracranial findings. The patient seemed to be improving but then became acutely worse again prior to arrival. A third head CT still negative. The patient may have had chest discomfort and diaphoresis prior to arrival. His cardiac enzymes were trended and were normal. The patient did not have any signs/symptoms of infection and a urine culture was negative. B12, ammonia and TSH were all normal. Finally his neurologist was consulted. I discussed this case with the neurologist, who knows the patient well for many years. He states the patient is at his baseline, which waxes and wanes due to his progressive vascular dementia and secondary Parkinsonism. His gait also waxes and wanes due to his underlying neuropathy and Parkinsonism. Neurology did not recommend any further testing. He will continue to wax and wane given his concussion and recent head trauma, and especially in the setting of his underlying diseases. Medications: *No changes have been made to the patient's medications. Follow up: *The patient is scheduled to follow up with his primary care provider. Please seek medical attention if patient experiences fevers, chills, sweats, dizziness/lightheadedness, loss of consciousness, chest pain, shortness of breath, nausea, vomiting, numbness or tingling. Current Hospital Diet Patient's current hospital diet: Regular Diet Discharge Diet Recommended Diet: AHA Diet (Heart Healthy) Pending Studies Studies pending at discharge: no Physician Orders On Transfer Special Precautions: Fall precautions Aspiration precautions Vital Signs: Routine Weigh: Daily Medical Emergencies . Who to Call and When: Medical Emergencies: If at any time you feel your situation is an emergency, please call 911 immediately. . Non-Emergent Contact Non-Emergency issues call your: Primary Care Provider, Neurologist Call Non-Emergent contact if: you have a fever, you have any medication questions . Past History Medical & Surgical History: (1) Concussion . "Provider Documentation" section prepared by Peggy Thomas. . Core Measure Problem Core Measures: None
--- NOTE | 2017-08-04 13:49 | DIAGNOSTIC IMAGING REPORT ---
LUMBAR SPINE CT CT DOSE: 805.92 mGy.cm HISTORY: back pain TECHNIQUE: Multiaxial CT images of the lumbar spine were performed and reformatted in the sagittal and coronal plane without the use of contrast. A dose lowering technique was utilized adhering to the principles of ALARA. COMPARISON: Lumbar spine CT 01/01/2015. FINDINGS: Mild levoscoliosis, unchanged. Posterior fusion from L3 through S1 with pedicle screws and rods. There is also an L2 laminectomy. The L2-L5 vertebral bodies and facets are fused. Mild disc space narrowing at L5-S1, unchanged. The L1-L2 disc space is preserved. The sacrum appears intact. The hardware remains intact. Paraspinal soft tissues are unremarkable. Mild central canal narrowing at L1-L2 due to a broad-based posterior disc bulge and ligamentum and facet hypertrophy. This remains unchanged. No significant central canal narrowing within the remaining lumbar spine due to the posterior decompression. Moderate bilateral neural foraminal narrowing seen from L3 through S1. This is also unchanged. IMPRESSION: 1. No acute fractures identified within the lumbar spine. 2. Degenerative and postoperative changes are not significantly changed. 3. Mild levoscoliosis. Electronically signed by: Tip Kunz M.D. 08/04/2017 1:47 PM Dictated Date/Time: 08/04/2017 1:39 PM
--- NOTE | 2017-08-04 16:08 | Discharge Summary ---
Discharge Summary Date of Service Aug 04, 2017. Discharge Summary Admission Date: Aug 02, 2017 at 19:29 Discharge Date: Aug 04, 2017 Discharge Disposition: Rehab ([facility]) Principal Diagnosis: Concussion Problems/Secondary Diagnoses: CAD, h/o LA, HTN, HLD, h/o ischemic cardiomyopathy, chronic diastolic CHF, CDK stage III, neuropathy, vascular dementia, secondary Parkinsonism, depression, h/ o prostate cancer, GERD Immunizations: Have You Had Influenza Vaccine: Yes History of Tetanus Vaccine?: needs History of Pneumococcal: Yes History of Hepatitis B Vaccine: No Procedures: HEAD WITHOUT CONTRAST (CT) CLINICAL HISTORY: 81 years-old Male with acute change in mental status. Recent head injury.. Acute altered mental status TECHNIQUE: Multiple axial CT images of the head were obtained without contrast. A dose lowering technique was utilized adhering to the principles of ALARA. CT DOSE: 638.56 mGycm COMPARISON: CT head 07/28/2017. FINDINGS: No acute intracranial hemorrhage, midline shift, intracranial mass, hydrocephalus, territorial ischemia or abnormal extra-axial collection. Moderate atrophy and ex vacuo tracheomegaly with chronic microvascular ischemic changes. Cerebral vascular calcifications are again seen at the level of the skull base. The calvarium is intact. The mastoid air cells, and middle ear cavities are clear. Mild mucosal thickening of the visualized ethmoid air cells. Soft tissues and orbits are unremarkable. IMPRESSION: No acute intracranial abnormality. Consultations: Neurology Medication Reconciliation Continued Medications: Ascorbic Acid (Vitamin C) 500 Mg Tab 500 MG PO QAM Aspirin (Aspirin Chewable) 81 Mg Chew 81 MG PO QAM Calcium Carbonate-Cholecalcife (Caltrate 600+D) 1 Tab Tab 1 TAB PO QAM Cholecalciferol (Vitamin D3) 1,000 Unit Tab 1000 UNITS PO QAM Cyclosporine (Ophth) (Restasis) 0.05 % Emu 1 DROP OPB QAM, BTL Furosemide (Lasix) 40 Mg Tab 40 MG PO Q2D, TAB Isosorbide Mononitrate (Isosorbide Mononitrate ER) 30 Mg Tabcr 30 MG PO QAM Metoprolol Succ (Toprol Xl) (Toprol-Xl) 25 Mg Tabcr 12.5 MG PO QAM Multiple Vitamins W/ Minerals (Centrum Silver Adult 50+) 1 Tab Tab 1 TAB PO QAM Nitroglycerin (Nitrostat) 0.4 Mg Tab 0.4 MG UT UD PRN for Chest Pain, BTL Pantoprazole (Protonix) 40 Mg Tab 40 MG PO QAM Polyethylene Glycol 3350 (Miralax) 1 Pow Pow 17 GM PO DAILY Potassium Chloride (K-Tab) 20 Meq Tab 1 TAB PO Q2D TAKE WITH LASIX. Sertraline HCl (Sertraline HCl) 100 Mg Tab 150 MG PO HS Simvastatin (Zocor) 20 Mg Tab 20 MG PO QPM Tramadol (Ultram) 50 Mg Tab 25 MG PO Q4H PRN for Pain PT USUALLY TAKES ONE AT BEDTIME. Discontinued Medications: Rivastigmine Tartrate (Rivastigmine Tartrate) 6 Mg Cap 6 MG PO QAM Discharge Exam Patient reports feeling well, denies any complaints to me. Patient's voices concerns regarding his back, does have a history of back surgeries. The patient denies fevers, chills, sweats, chest pain, palpitations, claudication, cough, wheezing, shortness of breath, nausea, vomiting, abdominal pain, dysuria , hematuria, urinary retention, paralysis, weakness, numbness and tingling. Constitutional: No fever, No chills, No sweats Eyes: No worsening of vision, No eye pain, No diplopia ENT: No hearing loss, No nasal symptoms, No trouble swallowing Respiratory: No cough, No wheezing, No shortness of breath Cardiovascular: No chest pain, No claudication, No palpitations Abdomen: No pain, No nausea, No vomiting Musculoskeletal: No joint pain, No muscle pain, No swelling Genitourinary - Male: No dysuria, No urinary retention, No hematuria Neurologic: No paralysis, No weakness, No numbness/tingling Integumentary: No rash, No itch, No color change General appearance: Well-developed, well-nourished, no apparent distress Head: +Small laceration right posterior scalp closed and healing. Jayden removed. Normocephalic Eyes: Normal inspection, PERRL, EOMI ENT: Normal ENT inspection, hearing grossly normal, pharynx normal Neck: Supple, no JVD, trachea midline Respiratory/Chest: Lungs clear to auscultation, normal breath sounds, no respiratory distress Cardiovascular: Regular rate & rhythm, no gallop, no murmur Abdomen/GI: Normal bowel sounds, non-tender, soft Extremities/Musculoskeletal: Normal inspection, no calf tenderness, no pedal edema Neurological/Psych: +Disoriented to place and time. Alert, normal mood/affect , oriented x 1 Skin: Normal color, warm/dry, no rash Hospital Course 81 y/o male with a history of CAD, h/o LA, HTN, HLD, h/o ischemic cardiomyopathy , chronic diastolic CHF, CDK stage III, neuropathy, Parkinson's disease, vascular dementia, depression, h/o prostate cancer, and GERD who presents with acute encephalopathy and recent fall. Pt has now had 3 head CTs following fall on 07/26, all negative for acute intracranial findings. Acute encephalopathy secondary to concussion from recent fall vs infection vs other?--ongoing -Admit to telemetry. No acute events overnight. Pt in sinus rhythm/sinus bradycardia with HR 50s-70s -UA unremarkable but does have chronic incontinence. Given Cipro x 1 dose -Urine culture negative -Could be secondary to concussion from recent fall, although pt had been improving prior becoming acutely encephalopathic [employer] -Consult neurology, appreciate recs: spoke with Dr. Carbone who has known the pt for several years. Pt is at baseline. He has progressive vascular dementia with secondary Parkinsonism and underlying neuropathy. His condition waxes and wanes, especially in light of recent concussion. Do not recommend further testing/intervention. MRI would not change anything. Can d/c rivastigmine as not helping. -Pt had chest pain and diaphoresis [employer], none since -Troponin negative x3 -Repeat EKG no ischemic changes -Recent fall 07/26, [address] Removed on 08/04 (10 days total) CAD, h/o LA, HTN, HLD, ischemic cardiomyopathy--stable -Continue ASA, Toprol XL 12.5 mg PO qd, Imdur 30 mg PO qd, and Zocor 20 mg PO qd Chronic diastolic CHF--stable, no acute exacerbation -Resume Lasix 40 mg PO q2d -Last echo 2016 EF now preserved with type 1 diastolic dysfunction, EF had been previously reduced in 2012 study CKD stage III--stable -Creatinine stable, at baseline Parkinsonism, depression -Continue Zoloft 150 mg PO qd -D/C rivastigmine per neuro DVT prophylaxis -Heparin 5000 units SC q12h Dispo -From home w/ -PT/OT evals: PT ok to return home w/home health, OT recommend inpatient rehab. -Accepted to [facility] for rehab. PA Physician Supervision Note: I interviewed and examined the patient. Discussed with Peggy ANGELO and agree with findings and plan as documented in the note. Any exceptions or clarifications are listed here: None Patient is in his usual state of health according to his she is concerned about his back with this fall as he is. Previous surgery on his back we did the CT image prior to leaving without any change in his pre-existing chronic back changes patient seems pleasantly confused he does need some help with ambulation especially reinforcement and how to use the walker correctly Temperature 36 9 pulse 54 respiration 18 BP 150/79 patient is awake and oriented 3 however appears to be forgetful upon detailed questioning his cardiac exam is regular he does have a systolic murmur his lungs are clear extremities are without edema Patient be transferred to [facility] for continued physical rehabilitative care he was seen in-house by his neurologist who feels he is at his baseline Documented By: Sergio Vazquez Total Time Spent: Greater than 30 minutes This includes examination of the patient, discharge planning, medication reconciliation, and communication with other providers. Discharge Instructions Please refer to the electronic Patient Visit Report (Discharge Instructions) for additional information. Additional Copies To Jam Major M.D.; Dino Brandon M.D.
== END 2017-08-04 16:05 | DRG 88 ==
LOC: C.EDB 16:19 → C.2T 19:29 → ENRESERV 19:47
PROVIDERS: ADMIT Internal Medicine; ATTEND Internal Medicine
DX: S06.0X9A Concussion with loss of consciousness of unspecified duration, initial encounter (principal); G93.40 Encephalopathy, unspecified; I13.0 Hypertensive heart and chronic kidney disease with heart failure and stage 1 through stage 4 chronic kidney disease, or unspecified chronic kidney disease; I50.32 Chronic diastolic (congestive) heart failure; G21.8 Other secondary parkinsonism; E51.9 Thiamine deficiency, unspecified; R32 Unspecified urinary incontinence; N18.3 Chronic kidney disease, stage 3 (moderate); I25.10 Atherosclerotic heart disease of native coronary artery without angina pectoris; I25.2 Old myocardial infarction; I25.5 Ischemic cardiomyopathy; G62.9 Polyneuropathy, unspecified; G57.32 Lesion of lateral popliteal nerve, left lower limb; K21.9 Gastro-esophageal reflux disease without esophagitis; F32.9 Major depressive disorder, single episode, unspecified; K59.00 Constipation, unspecified; F01.50 Vascular dementia, unspecified severity, without behavioral disturbance, psychotic disturbance, mood disturbance, and anxiety; E78.5 Hyperlipidemia, unspecified; Z51.81 Encounter for therapeutic drug level monitoring; Z79.899 Other long term (current) drug therapy; Z79.82 Long term (current) use of aspirin; Z91.81 History of falling; Z85.46 Personal history of malignant neoplasm of prostate; Z86.73 Personal history of transient ischemic attack (TIA), and cerebral infarction without residual deficits; Z85.820 Personal history of malignant melanoma of skin; Z88.8 Allergy status to other drugs, medicaments and biological substances; Z82.49 Family history of ischemic heart disease and other diseases of the circulatory system; W19.XXXA Unspecified fall, initial encounter

== ENCOUNTER → 2017-12-16 | Outpatient (CLI) | payer OTHER ==
[~2017-12-16] MED LIST changes: -CYCL0.052 OPB; -RIVA6CAP4 PO; +SERT50TA PO; -ZLF/100 PO
--- NOTE | 2017-12-16 11:49 | DIAGNOSTIC IMAGING REPORT ---
(CHEST) THORAX WITHOUT CT DOSE: 604.32 mGycm HISTORY: Lung nodule NODULES TECHNIQUE: Multiaxial CT images of the chest were performed without contrast. A dose lowering technique was utilized adhering to the principles of ALARA. COMPARISON: 06/22/2017 FINDINGS: Well-circumscribed left basilar pulmonary nodule demonstrating a maximum current diameter 2.3 cm. Is again pleural-based. This is mildly increased in size in the prior study with neoplasm again the diagnosis of exclusion. Slight bibasilar interstitial change. Mid and upper lungs are clear. No significant mediastinal or hilar adenopathy. Calcification of coronary arterial vasculature. Bone density characteristics are similar. IMPRESSION: 1. Enlarging left basilar pulmonary nodule 2. Neoplasm is the diagnosis of exclusion The above report was generated using voice recognition software. It may contain grammatical, syntax or spelling errors. Electronically signed by: Job Traylor M.D. 12/16/2017 11:48 AM Dictated Date/Time: 12/16/2017 11:44 AM
== END | disposition home or self-care (01) ==
LOC: EDBD → C.CTS 11:23
PROVIDERS: ATTEND Internal Medicine Pulmonary Disease
DX: R91.1 Solitary pulmonary nodule (principal)

== ENCOUNTER 2017-12-28 19:58 | Emergency (ER) | payer OTHER ==
[~2017-12-28] VITALS: Ht 182.9 cm; Wt 106.9 kg
[2017-12-28 20:00] VITALS: TEMP 36.8; Ht 182.9 cm; Wt 106.9 kg
--- NOTE | 2017-12-28 20:23 | EMERGENCY ROOM VISIT NOTE ---
History Report prepared by Sue: Rajwinder Amador Under the Supervision of: Dr. Abhishek Iniguez D.O. First contact with patient: 19:59 Chief Complaint: FALL Stated Complaint: Fall History of Present Illness The patient is an 82 year old male who presents to the Emergency Room with complaints of a sudden fall occurring shortly prior to arrival. Per nursing staff, the patient was trying to escape [facility] and fell down 4 stairs. Nursing staff reports that the patient takes baby aspirin daily. The patient reports having some back pain. Per son, the patient's black eye is from the other day and not tonight. Source of History: patient, nursing staff Onset: shortly prior to arrival Position: other (generalized) Quality: other (fall) Timing: other (sudden) Associated Symptoms: + back pain Review of Systems See HPI for pertinent positives & negatives. A total of 10 systems reviewed and were otherwise negative. 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 Social History Smoking Status: Never Smoker Alcohol Use: none Drug Use: none Marital Status: Housing Status: assisted Occupation Status: retired Current/Historical Medications Scheduled Ascorbic Acid (Vitamin C), 500 MG PO QAM Aspirin (Aspirin Chewable), 81 MG PO QAM Calcium Carbonate-Cholecalcife (Caltrate 600+D), 1 TAB PO QAM Cholecalciferol (Vitamin D3), 1,000 UNITS PO QAM Furosemide (Lasix), 40 MG PO Q2D Isosorbide Mononitrate (Isosorbide Mononitrate ER), 30 MG PO QAM Metoprolol Succ (Toprol Xl) (Toprol-Xl), 12.5 MG PO QAM Multiple Vitamins W/ Minerals (Centrum Silver Adult 50+), 1 TAB PO QAM Pantoprazole (Protonix), 40 MG PO QAM Polyethylene Glycol 3350 (Miralax), 17 GM PO DAILY Potassium Chloride (K-Tab), 1 TAB PO Q2D Sertraline (Zoloft), 25 MG PO HS Simvastatin (Zocor), 20 MG PO QPM Scheduled PRN Nitroglycerin (Nitrostat), 0.4 MG UT UD PRN for Chest Pain Tramadol (Ultram), 25 MG PO Q4H PRN for Pain Allergies Coded Allergies: Gabapentin (Verified Adverse Reaction, Severe, HALLUCINATIONS-DOUBLE VISION, 10/12/17) Physical Exam Vital Signs Date Time Temp Pulse Resp B/P (MAP) Pulse Ox O2 Delivery O2 Flow Rate FiO2 12/28/17 20:19 54 16 104/62 98 Room Air 12/28/17 20:00 36.8 58 18 170/129 96 Room Air Physical Exam CONSTITUTIONAL/VITAL SIGNS: Reviewed / noted above. GENERAL: Non-toxic in appearance. INTEGUMENTARY: Warm, dry, and [place]. Small skin tear noted to the left dorsal hand between thumb and index finger. HEAD: Normocephalic. Small amount of ecchymosis in the left intraorbital area and left jaw area. EYES: without scleral icterus or trauma. ENT/OROPHARYNX: clear and moist. LYMPHADENOPATHY/NECK: Is supple without lymphadenopathy or meningismus. RESPIRATORY: Lungs clear and equal. CARDIOVASCULAR: Regular rate and rhythm. GI/ABDOMEN: Soft and nontender. No organomegaly or pulsatile mass. No rebound or guarding. Normal bowel sounds. EXTREMITIES: Warm and well perfused. BACK: No CVA tenderness. NEUROLOGICAL: Intact without focal deficits. PSYCHIATRIC: normal affect. MUSCULOSKELETAL: Normally developed with good muscle tone. Medical Decision & Procedures ED Course 2000: Previous medical records were reviewed. The patient was evaluated in room A9B. A complete history and physical examination was performed. 2006: I had a conversation with the patient's son regarding the patient. Medical Decision Differential diagnosis: Etiologies such as fracture, dislocation, intra-abdominal, pneumothorax, intrathoracic , intracranial, neurologic, as well as other traumatic pathologies were entertained. Was an 82-year-old male who presents to the ED with a chief complaint of a fall. The patient has a history of dementia and is unable to provide any adequate or useful history. Had reportedly fallen down a few steps at the local nursing facility, where he resides. He was brought in for evaluation. He is a small skin tear to his left dorsal hand. He also has a small bruise to the left jaw/neck area. There is an older bruise on her needs his left eye, that occurred a few days ago according to the son. The patient denies any specific complaints. His exam is otherwise unremarkable. There is no evidence of significant head trauma. After evaluating the patient, I felt he was stable for discharge without any further testing at this time. Medication Reconcilliation Current Medication List: was personally reviewed by me Blood Pressure Screening Patient's blood pressure: Normal blood pressure Impression Primary Impression: Fall Additional Impressions: Contusion of multiple sites Skin tear Scribe Attestation The scribe's documentation has been prepared under my direction and personally reviewed by me in its entirety. I confirm that the note above accurately reflects all work, treatment, procedures, and medical decision making performed by me. Departure Information Dispostion Home / Self-Care Referrals Dino Brandon M.D. (PCP) Patient Instructions My [facility] Additional Instructions Watch wounds for infection. Follow-up with your doctor for further care and evaluation in 2-4 days. Return to the emergency department for worsening or new symptoms or any concerns. You have been examined and treated today on an emergency basis only. This is not a substitute for, or an effort to provide, complete comprehensive medical care. It is impossible to recognize and treat all injuries or illnesses in a single emergency department visit. It is therefore important that you follow up closely with your doctor. Call as soon as possible for an appointment. Problem Qualifiers
[2017-12-28] MEDS ORDERED: MULTTAB PO (21:48)
[2017-12-28 22:11] VITALS: BP 145/72; PULSE 65; O2SAT 98
== END 2017-12-28 22:12 | disposition home or self-care (01) ==
LOC: EDBD 19:58 → C.EDA 19:59
DX: S61.412A Laceration without foreign body of left hand, initial encounter (principal); S00.83XA Contusion of other part of head, initial encounter; W10.8XXA Fall (on) (from) other stairs and steps, initial encounter; Y92.128 Other place in nursing home as the place of occurrence of the external cause; Z79.899 Other long term (current) drug therapy; I25.10 Atherosclerotic heart disease of native coronary artery without angina pectoris; G20 Parkinson's disease; I25.2 Old myocardial infarction; Z79.82 Long term (current) use of aspirin; Z88.8 Allergy status to other drugs, medicaments and biological substances; Z86.73 Personal history of transient ischemic attack (TIA), and cerebral infarction without residual deficits; Z85.46 Personal history of malignant neoplasm of prostate